=== PATIENT | male | born 1935 | race Caucasian/White ===

== ENCOUNTER 2017-03-03 19:21 | Inpatient (IN) | payer OTHER, MEDICARE ==
[2017-03-03] VITALS (7 sets, daily range): BP systolic 137–159; BP diastolic 80–92; PULSE 84–96; RESP 20; TEMP 98.2–98.6; O2SAT 93–98
[~2017-03-03] VITALS: Ht 182.9 cm; Wt 67.6 kg
[2017-03-03] MEDS: SODIUM CHLOR 0.9% 1000 ML INJ 1,000 ML IV SCH
--- NOTE | 2017-03-03 19:36 | PD ---
HPI Chief Complaint: Altered Mental Status Time Seen by Provider: 19:29 Travel History International Travel<30 days: No Contact w/Intl Traveler<30days: No Traveled to known affect area: No History of Present Illness HPI lives at home and per ems report from family is normally ambulatory and self reliant gentleman, pt is unable to answer questions well, per found down, and unable to stand on his own, last time seen normal was 9am, unknown when this happened PFSH Past Medical History ?: Unknown Social History Tobacco Use: No Allergies-Medications (Allergen,Severity, Reaction): Coded Allergies: UNOBTAINABLE (Unverified , 03/03/17) Review of Systems ROS Limitations: Altered Mental Status, Speech Impaired Except as stated in HPI: all other systems reviewed are Neg Physical Exam Exam Limitations: Clinical Condition, Poor Historian Narrative GENERAL: SKIN: Warm and dry. HEAD: Atraumatic. Normocephalic. EYES: Pupils equal and round. No scleral icterus. No injection or drainage. ENT: No nasal bleeding or discharge. Mucous membranes pink and moist. NECK: Trachea midline. No JVD. CARDIOVASCULAR: Regular rate and rhythm. RESPIRATORY: No accessory muscle use. Clear to auscultation. Breath sounds equal bilaterally. GASTROINTESTINAL: Abdomen soft, non-tender, nondistended. Hepatic and splenic margins not palpable. MUSCULOSKELETAL: Extremities without clubbing, cyanosis, or edema. No obvious deformities. NEUROLOGICAL: Awake FOLLOWS COMMANDS WELL, LEFT UE/LE 5/5, HOWEVER RIGHT UE/LE 0 /5, HAS DIFFICULTY SPEAKING PSYCHIATRIC: Appropriate mood and affect; insight and judgment normal. Data Data Last Documented VS Vital Signs Date Time Temp Pulse Resp B/P Pulse Ox O2 Delivery O2 Flow Rate FiO2 03/03/17 21:10 93 20 137/86 97 Nasal Cannula 1 03/03/17 19:24 98.2 Orders Electrocardiogram (03/03/17 19:29) Ammonia (03/03/17 19:29) Complete Blood Count With Diff (03/03/17 19:29) Comprehensive Metabolic Panel (03/03/17 19:29) Prothrombin Time / Inr (Pt) (03/03/17 19:29) Act Partial Throm Time (Ptt) (03/03/17 19:29) Troponin I (03/03/17 19:29) Thyroid Stimulating Hormone (03/03/17 19:29) Urinalysis - C+S If Indicated (03/03/17 19:29) Lactic Acid Sepsis Protocol (03/03/17 19:29) Chest, Single Ap (03/03/17 19:29) Ct Brain W/O Iv Contrast(Rout) (03/03/17 19:29) Blood Glucose (03/03/17 19:29) Ecg Monitoring (03/03/17 19:29) Iv Access Insert/Monitor (03/03/17 19:29) Oximetry (03/03/17 19:29) Drug Screen, Random Urine (03/03/17 19:29) Alcohol (Ethanol) (03/03/17 19:29) Tylenol (Acetaminophen) (03/03/17 19:29) Salicylates (Aspirin) (03/03/17 19:29) Ceftriaxone Inj (Rocephin Inj) (03/03/17 20:45) Sodium Chlor 0.9% 1000 Ml Inj (Ns 1000 M (03/03/17 21:00) Cta Thor Abd Aorta W Iv C W3d (03/03/17 ) Iohexol 350 Inj (Omnipaque 350 Inj) (03/03/17 21:35) Urine Culture (03/03/17 21:00) Admit Order (Ed Use Only) (03/03/17 21:53) Labs Laboratory Tests Test 03/03/17 03/03/17 03/03/17 03/03/17 19:40 19:56 21:00 21:29 White Blood Count 22.4 TH/MM3 Red Blood Count 4.66 MIL/MM3 Hemoglobin 14.9 GM/DL Hematocrit 43.9 % Mean Corpuscular Volume 94.2 FL Mean Corpuscular Hemoglobin 31.9 PG Mean Corpuscular Hemoglobin 33.9 % Concent Red Cell Distribution Width 13.1 % Platelet Count 180 TH/MM3 Mean Platelet Volume 9.2 FL Neutrophils (%) (Auto) 91.0 % Lymphocytes (%) (Auto) 2.0 % Monocytes (%) (Auto) 6.9 % Eosinophils (%) (Auto) 0.0 % Basophils (%) (Auto) 0.1 % Neutrophils # (Auto) 20.4 TH/MM3 Lymphocytes # (Auto) 0.5 TH/MM3 Monocytes # (Auto) 1.5 TH/MM3 Eosinophils # (Auto) 0.0 TH/MM3 Basophils # (Auto) 0.0 TH/MM3 CBC Comment DIFF FINAL Differential Comment Prothrombin Time 10.7 SEC Prothromb Time International 1.0 RATIO Ratio Activated Partial 23.2 SEC Thromboplast Time Sodium Level 138 MEQ/L Potassium Level 3.7 MEQ/L Chloride Level 104 MEQ/L Carbon Dioxide Level 24.5 MEQ/L Anion Gap 10 MEQ/L Blood Urea Nitrogen 17 MG/DL Creatinine 1.39 MG/DL Estimat Glomerular Filtration 49 ML/MIN Rate Random Glucose 168 MG/DL Calcium Level 8.6 MG/DL Total Bilirubin 0.3 MG/DL Aspartate Amino Transf 39 U/L (AST/SGOT) Alanine Aminotransferase 22 U/L (ALT/SGPT) Alkaline Phosphatase 87 U/L Troponin I 2.96 NG/ML Total Protein 7.9 GM/DL Albumin 4.1 GM/DL Thyroid Stimulating Hormone 1.280 uIU/ML 3rd Gen Acetaminophen Level LESS THAN 2.0 MCG/ML Ethyl Alcohol Level LESS THAN 3 MG/DL Lactic Acid Level 5.1 mmol/L Ammonia 24 MCMOL/L Urine Color YELLOW Urine Turbidity HAZY Urine pH 5.0 Urine Specific [place] 1.021 Urine Protein 30 mg/dL Urine Glucose (UA) 300 mg/dL Urine Ketones TRACE mg/dL Urine Occult Blood MOD Urine Nitrite NEG Urine Bilirubin NEG Urine Urobilinogen LESS THAN 2.0 MG/DL Urine Leukocyte Esterase NEG Urine RBC 36 /hpf Urine WBC 5 /hpf Urine Squamous Epithelial <1 /hpf Cells Urine Amorphous Sediment RARE Urine Bacteria RARE /hpf Urine Mucus FEW /lpf Microscopic Urinalysis Comment CATH-CULTURE IND Urine Opiates Screen NEG Urine Barbiturates Screen NEG Urine Amphetamines Screen NEG Urine Benzodiazepines Screen NEG Urine Cocaine Screen NEG Urine Cannabinoids Screen NEG Salicylates Level LESS THAN 1.7 MG/DL [facility] Medical Decision Making Medical Screen Exam Complete: Yes Emergency Medical Condition: Yes Medical Record Reviewed: Yes Interpretation(s) NSR 93, NL INTERVALS, NONSPEC STT Differential Diagnosis CVA V HYPOGLYCEMIA V SEPSIS V UT V DISSECTION Narrative Course UNKNOWN HISTORY DUE TO CONDITION BUT ROOMMATE LAST SAW HIM NORMAL AT 9A SO CVA BUT OUTSIDE OF TPA WINDOW....PATIENT WAS GIVEN SINGLE DOSE OF IV ABX AND FLUIDS AFTER LEUKOCYTOSIS AND LACTIC ACIDOSIS DISCOVERED (OF NOTE NO ABDMINAL REBOUND/ GUARDING/RIGIDITY) NO OBVIOUS SOURCE CXR CLEAR, CT HEAD NO ICH. DUE TO ELEV TROPONIN AND NEURO PRESENTATION CT AORTA DONE TO RULE OUT DISSECTION WHICH WAS NEGATIVE, D/W DR STEWART FOR ADMISSION TO ICU Critical Care Narrative CRITICAL CARE NOTE: With evaluation of the patient, labs, EKG, receipt of radiologic studies, administration of medications, reevaluation the patient and discussion of the patient with the admitting physicians, the total critical care time was [60] minutes. Time to perform other separately billable procedures was not included in the critical care time. Sepsis Criteria Severe Sepsis (+one): Organ Dysfunction, Lactate >2 Criteria Outcome: Meets severe sepsis criteria Diagnosis Primary Impression: 1-ACUTE CVA 2-SUSPECTED SEVERE SEPSIS (UNKNOWN SOURCE) 3-ELEVATED TROPONIN Admitting Information Admitting Physician Requests: Admit Andre Salcido MD Mar 03, 2017 19:36
--- NOTE | 2017-03-03 19:52 | RADRPT ---
EXAM DATE/TIME: 03/03/2017 19:37 [facility] COMPARISON: No previous studies available for comparison. INDICATIONS : Altered mental status with right sided weakness today. RADIATION DOSE: 53.45 CTDIvol (mGy) MEDICAL HISTORY : Non-responsive. SURGICAL HISTORY : Non-responsive. ENCOUNTER: Initial ACUITY: 1 day PAIN SCALE: 0/10 LOCATION: cranial TECHNIQUE: Multiple contiguous axial images were obtained of the head. Using automated exposure control and adj ustment of the mA and/or kV according to patient size, radiation dose was kept as low as reasonably a chievable to obtain optimal diagnostic quality images. DICOM format image data is available electro nically for review and comparison. FINDINGS: CEREBRUM: The ventricles are normal for age. There is mild chronic small vessel ischemic change. No evidence of midline shift, mass lesion, hemorrhage or acute infarction. No extra-axial fluid collections are se en. POSTERIOR FOSSA: The cerebellum and brainstem are intact. The 4th ventricle is midline. The cerebellopontine angle i s unremarkable. EXTRACRANIAL: The visualized portion of the orbits is intact. SKULL: The calvaria is intact. No evidence of skull fracture. CONCLUSION: 1. Mild atrophy and patchy chronic small vessel ischemic change. 2. No acute hemorrhage or mass effect. Scott Thompson MD on March 03, 2017 at 19:49 Board Certified Radiologist. This report was verified electronically.
--- NOTE | 2017-03-03 19:59 | RADRPT ---
EXAM DATE/TIME: 03/03/2017 19:36 [facility] COMPARISON: No previous studies available for comparison. INDICATIONS : Syncope MEDICAL HISTORY : None. SURGICAL HISTORY : None. ENCOUNTER: Initial ACUITY: 1 day PAIN SCORE: Non-responsive. LOCATION: Bilateral chest FINDINGS: A single view of the chest demonstrates the lungs to be symmetrically aerated without evidence of mas s, infiltrate or effusion. The cardiomediastinal contours are unremarkable. Osseous structures are intact. The patient is status post median sternotomy. There are overlying electrocardiogram leads. CONCLUSION: No acute disease. Scott Thompson MD on March 03, 2017 at 19:56 Board Certified Radiologist. This report was verified electronically.
[2017-03-03 20:03] LABS: AUTOMATED NEUTROPHIL # 20.4 TH/MM3 (1.8-7.7); BASOPHIL % 0.1 % (0.0-2.0); HEMATOCRIT 43.9 % (39.0-51.0); HEMO FLAGS DIFF FINAL; LYMPHOCYTE # 0.5 TH/MM3 (1.0-4.8); MEAN CELL VOLUME 94.2 FL (80.0-100.0); MEAN CORPUSCULAR HEMOGLOBIN 31.9 PG (27.0-34.0); MEAN CORPUSCULAR HGB CONC 33.9 % (32.0-36.0); MONO % 6.9 % (0.0-8.0); PLATELET COUNT 180 TH/MM3 (150-450); RED BLOOD COUNT 4.66 MIL/MM3 (4.50-5.90); RED CELL DISTRIBUTION WIDTH 13.1 % (11.6-17.2); WHITE BLOOD COUNT 22.4 TH/MM3 (4.0-11.0)
[2017-03-03 20:08] LABS: APTT (PATIENT) 23.2 SEC (24.3-30.1); PROTHROMBIN TIME - PATIENT 10.7 SEC (9.8-11.6)
[2017-03-03 20:23] LABS: ANION GAP 10 MEQ/L (5-15); AST (GOT) 39 U/L (15-37); BICARBONATE 24.5 MEQ/L (21.0-32.0); BLOOD UREA NITROGEN 17 MG/DL (7-18); CHLORIDE 104 MEQ/L (98-107); GLOMERULAR FILTRATION RATE 49 ML/MIN (>89); POTASSIUM 3.7 MEQ/L (3.5-5.1); SODIUM (NA) 138 MEQ/L (136-145)
[2017-03-03 20:35] LABS: ALKALINE PHOSPHATASE 87 U/L (45-117); ALT (GPT) 22 U/L (12-78); TOTAL BILIRUBIN ADULT 0.3 MG/DL (0.2-1.0)
[2017-03-03] MEDS ORDERED: cefTRIAXone INJ 1,000 MG in SODIUM CHLORIDE 0.9% INJ 100 ML IV ONE (20:45)
[2017-03-03 20:46] LABS: ACETAMINOPHEN LESS THAN 2.0 MCG/ML (10.0-30.0)
[2017-03-03] MEDS ORDERED: SODIUM CHLOR 0.9% 1000 ML INJ 1,000 ML IV ONE (21:00)
[2017-03-03] MEDS ORDERED: IOHEXOL 350 MG/ML 10 ML VIAL (for RAD DIAG) IV ONE (21:35)
[2017-03-03 21:39] LABS: BACTERIA, URINE RARE /hpf; BLOOD, URINE MOD (NEG); GLUCOSE,URINE 300 mg/dL (NEG); KETONE, URINE TRACE mg/dL (NEG); MUCUS URINE FEW /lpf (OCC); NITRITE,URINE NEG (NEG); SQUAMOUS EPITHELIAL CELL URINE <1 /hpf (0-5); URINE COLOR YELLOW (YELLW/STRAW)
[2017-03-03 21:41] LABS: COMMENT (UR) CATH-CULTURE IND; CULTURE IF INDICATED CATH CULTURE IND
--- NOTE | 2017-03-03 21:50 | RADRPT ---
EXAM DATE/TIME: 03/03/2017 21:12 [facility] COMPARISON: No previous studies available for comparison. INDICATIONS : Chest pain. Evaluate for aortic dissection. IV CONTRAST: 93 cc Omnipaque 350 (iohexol) IV RADIATION DOSE: 7.27 CTDIvol (mGy) MEDICAL HISTORY : Cardiovascular disease. SURGICAL HISTORY : CABG ENCOUNTER: Initial ACUITY: 1 day PAIN SCALE: 0/10 LOCATION: Abdomen TECHNIQUE: Volumetric scanning was performed using a multi-row detector CT scanner. The data was post processed with a variety of visualization algorithms including full volume maximum intensity projection, multi -planar sliding thin slab reformation, curved planar reformation, and surface rendering techniques. Using automated exposure control and adjustment of the mA and/or kV according to patient size, radiat ion dose was kept as low as reasonably achievable to obtain optimal diagnostic quality images. DICOM format image data is available electronically for review and comparison. FINDINGS: LUNGS: There is no consolidation or pneumothorax. No concerning pulmonary nodule is visualized. No pleural fluid is present. MEDIASTINUM: No abnormally enlarged lymph nodes by CT criteria. No axillary or hilar abnormalities are identified. There are coronary artery calcifications. Patient status post median sternotomy. There are mild post surgical changes ABDOMEN: The liver and spleen are free of focal defects. The gallbladder and pancreas demonstrate no abnormali ty. The adrenal glands are normal. The kidneys demonstrate no evidence of solid renal mass or hydrone phrosis. No free fluid or abdominal masses are identified. No para-aortic adenopathy is seen. PELVIS: No evidence of free fluid or pelvic mass. No abnormally enlarged inguinal or retroperitoneal lymph no candy are present. The bladder is unremarkable. THORACIC AORTA: The thoracic aortic root is normal with normal branching of the great vessels. There is no evidence of aneurysm or dissection. ABDOMINAL AORTA: The aorta is normal in caliber without aneurysm or dissection. The renal arteries are patent bilater ally. The proximal celiac and superior mesenteric arteries are patent and normal in diameter. Mild atherosclerotic change is present with calcification. The aorta is mildly tortuous. There is mild di latation. PELVIC VESSELS: The internal iliac and external iliac vessels are patent without aneurysm or stenosis. CONCLUSION: 1. Atherosclerotic changes in the aorta with no aneurysm or dissection. 2. Coronary artery calcifications. 3. Status post median sternotomy for bypass grafting procedure. Scott Thompson MD on March 03, 2017 at 21:45 Board Certified Radiologist. This report was verified electronically.
[2017-03-03 22:07] LABS: LACTIC ACID GHOST NOT REPORTABLE
[2017-03-03] MEDS ORDERED: SODIUM CHLORIDE 0.9% FLUSH 10 ML FLUSH IV FLUSH PRN (22:15)
[2017-03-03] MEDS ORDERED: NALOXONE HCL 0.4 MG/ML AMP IV PRN (22:15)
[2017-03-03] MEDS ORDERED: SODIUM CHLORIDE 0.9% FLUSH 5 ML FLUSH IV FLUSH PRN (22:15)
[2017-03-03] MEDS ORDERED: GLUCAGON 1 MG/ML VIAL OTHER PRN (22:15)
[2017-03-03] MEDS ORDERED: DEXTROSE 50% IN WATER 50 ML VIAL(D50) IV PUSH PRN (22:15)
--- NOTE | 2017-03-03 22:23 | HHI.HP ---
[facility] Unknown Admission Diagnosis 1-CVA 2-ELEVATED TROPONIN 3-SUSPECTED SEPSIS (UNKNOWN SOURCE) Diagnoses: Chief Complaint: Found down unresponive for undetermined amount of time Travel History International Travel<30 Days: No Contact w/Intl Traveler <30 Da: No Traveled to Known Affected Are: No History of Present Illness Written by Rosalind Graham, acting as scribe for Dr. James on 03/03/17 at 22:43. Found by roommate - he was down on the ground for an undetermined amount of time. Roommate left at 9 a.m. for work and he was fine and at 6:30 p.m. she returned to find him down. Bowel and bladder incontinence had reportedly occurred. He had right hemiparesis upon arrival to ED per ED RN. Patient nods head when asked if he fell at home Denies chest pain/abdominal pain Having difficulty finding words/speech is dysarthric Bite on his tongue noted during exam Per bedside ER nurse, she spoke with the patient's son and his roommate and neither were very familiar with his medical history. Further history will need to be taken as patient's condition continues to improve. . Review of Systems ROS Limitations: Clinical Condition Except as stated in HPI: all other systems reviewed are Neg Past Family Social History Past Medical History AL Hyperlipidemia CAD s/p CABG x 4 . Past Surgical History CABG x 4 1998 . Reported Medications unable to obtain . Allergies: Coded Allergies: UNOBTAINABLE (Unverified , 03/03/17) Active Ordered Medications Current Medications Ceftriaxone Sodium 1000 mg/ Sodium Chloride 100 ml @ 200 mls/hr ONCE ONCE IV Last administered on 03/03/17 21:44; Start 03/03/17 at 20:45; Stop 03/03/17 at 21:14; Status DC Sodium Chloride (NS 1000 ml Inj) 1,000 ml @ 999 mls/hr BOLUS ONCE IV Last administered on 03/03/17 20:55; Start 03/03/17 at 21:00; Stop 03/03/17 at 22:00 ; Status DC Iohexol 93 ml 93 ml STK-MED ONCE IV Last administered on 03/03/17t 21:35; Start 03/03/17 at 21:35; Stop 03/03/17 at 21:36; Status DC Sodium Chloride (NS 1000 ml Inj) 1,000 ml @ 100 mls/hr Q10H IV ; Start at 22:06 Sodium Chloride (NS Flush) 2 ml UNSCH PRN IV FLUSH FLUSH AFTER USING IV ACCESS ; Start 03/03/17 at 22:15 Sodium Chloride (NS Flush) 2 ml BID IV FLUSH ; Start 03/04/17 at 09:00 Naloxone HCl (Narcan Inj) 0.4 mg UNSCH PRN IV SEE LABEL COMMENTS; Start at 22:15 IV Flush (NS Flush) 2 ml BID IV FLUSH ; Start 03/04/17 at 09:00; Status UNV IV Flush (NS Flush) 2 ml UNSCH PRN IV FLUSH FLUSH AFTER USING IV ACCESS; Start 03/03/17 at 22:15; Status UNV Dextrose (D50w (Vial) Inj) 50 ml UNSCH PRN IV PUSH HYPOGLYCEMIA-SEE COMMENTS; Start 03/03/17 at 22:15 Glucagon (Glucagon Inj) 1 mg UNSCH PRN OTHER HYPOGLYCEMIA-SEE COMMENTS; Start 03/03/17 at 22:15 . Family History unable to obtain due to aphasia: expressive . Social History Tobacco: denies Alcohol: occasional . Physical Exam Vital Signs Vital Signs Date Time Temp Pulse Resp B/P Pulse Ox O2 Delivery O2 Flow Rate FiO2 03/03/17 22:13 96 143/92 98 Nasal Cannula 1 03/03/17 21:10 93 20 137/86 97 Nasal Cannula 1 03/03/17 20:26 97 Nasal Cannula 2 03/03/17 20:13 91 154/80 96 Nasal Cannula 2 03/03/17 19:31 146/86 03/03/17 19:31 89 138/90 94 Nasal Cannula 2 03/03/17 19:24 98.2 92 20 156/90 93 Physical Exam GENERAL: This is a well-nourished, well-developed patient, in no apparent distress. SKIN: No rashes, ecchymoses or lesions. Cool and dry. Right elbow, ankle, and knuckle abrasions HEAD: Atraumatic. Normocephalic. EYES: No scleral icterus. No injection or drainage. ENT: Nose without bleeding, purulent drainage. NECK: Trachea midline. No JVD or lymphadenopathy. CARDIOVASCULAR: Regular rate and rhythm without murmurs, gallops, or rubs. RESPIRATORY: Clear to auscultation. Breath sounds equal bilaterally. No wheezes , rales, or rhonchi. GASTROINTESTINAL: Abdomen soft, non-tender, nondistended. No guarding. MUSCULOSKELETAL: Extremities without clubbing, cyanosis, or edema. No calf tenderness. NEUROLOGICAL: Awake and alert. Right facial droop, tongue bite noted, no tongue deviation. 2/3 out of 5 strength in right upper extremity, left UE 5/5 bilateral LE 5/5; Expressive aphasia. . Laboratory Laboratory Tests Test 03/03/17 03/03/17 03/03/17 19:40 19:56 21:00 White Blood Count 22.4 Red Blood Count 4.66 Hemoglobin 14.9 Hematocrit 43.9 Mean Corpuscular Volume 94.2 Mean Corpuscular Hemoglobin 31.9 Mean Corpuscular Hemoglobin 33.9 Concent Red Cell Distribution Width 13.1 Platelet Count 180 Mean Platelet Volume 9.2 Neutrophils (%) (Auto) 91.0 Lymphocytes (%) (Auto) 2.0 Monocytes (%) (Auto) 6.9 Eosinophils (%) (Auto) 0.0 Basophils (%) (Auto) 0.1 Neutrophils # (Auto) 20.4 Lymphocytes # (Auto) 0.5 Monocytes # (Auto) 1.5 Eosinophils # (Auto) 0.0 Basophils # (Auto) 0.0 CBC Comment DIFF FINAL Differential Comment Prothrombin Time 10.7 Prothromb Time International 1.0 Ratio Activated Partial 23.2 Thromboplast Time Sodium Level 138 Potassium Level 3.7 Chloride Level 104 Carbon Dioxide Level 24.5 Anion Gap 10 Blood Urea Nitrogen 17 Creatinine 1.39 Estimat Glomerular Filtration 49 Rate Random Glucose 168 Calcium Level 8.6 Total Bilirubin 0.3 Aspartate Amino Transf 39 (AST/SGOT) Alanine Aminotransferase 22 (ALT/SGPT) Alkaline Phosphatase 87 Troponin I 2.96 Total Protein 7.9 Albumin 4.1 Thyroid Stimulating Hormone 1.280 3rd Gen Acetaminophen Level LESS THAN 2.0 Ethyl Alcohol Level LESS THAN 3 Lactic Acid Level 5.1 Ammonia 24 Urine Color YELLOW Urine Turbidity HAZY Urine pH 5.0 Urine Specific [place] 1.021 Urine Protein 30 Urine Glucose (UA) 300 Urine Ketones TRACE Urine Occult Blood MOD Urine Nitrite NEG Urine Bilirubin NEG Urine Urobilinogen LESS THAN 2.0 Urine Leukocyte Esterase NEG Urine RBC 36 Urine WBC 5 Urine Squamous Epithelial <1 Cells Urine Amorphous Sediment RARE Urine Bacteria RARE Urine Mucus FEW Microscopic Urinalysis Comment CATH-CULTURE IND Date/Time Procedure Status Source Growth 03/03/17 21:00 Urine Culture Received Urine Catheterized Urine Pending Result Diagram: 03/03/17193903/03/171939 Imaging Last Impressions Head CT 03/03/171928 Signed Impressions: Service Date/Time: , March 03, 2017 19:37 - CONCLUSION: 1. Mild atrophy and patchy chronic small vessel ischemic change. 2. No acute hemorrhage or mass effect. Scott Thompson MD Chest X-Ray 03/03/171928 Signed Impressions: Service Date/Time: , March 03, 2017 19:36 - CONCLUSION: No acute disease. Scott Thompson MD Aorta CTA 03/03/17 0000 Signed Impressions: Service Date/Time: , March 03, 2017 21:12 - CONCLUSION: 1. Atherosclerotic changes in the aorta with no aneurysm or dissection. 2. Coronary artery calcifications. 3. Status post median sternotomy for bypass grafting procedure. Scott Thompson MD . Assessment and Plan Assessment and Plan Mr. Lew flores was found down at home by his roommate. It is uncertain how long he'd been down but he had right hemiparesis per COUNTER CONTROL OPERATOR. He is admitted for CVA management. CVA - right hemiparesis and aphasia - toxicology screen negative - Consult neurology - Head CT was negative for acute hemorrhage or mass effect. Mild atrophy and patchy chronic small vessel ischemic changes noted. - Brain MRI could not be performed as MRI screening could not be completed reliably to ensure patient safety during testing - Consult rehabilitation medicine/physiatry - 2-D Echocardiogram to assess heart structure and heart function - Nothing by mouth - Nursing bedside swallow assessment - PT and ST Possible seizure - Check EEG to evaluate for seizure activity NSTEMI - Consult Cardiology - Initial troponin I was 2.96 - We will trend serial cardiac enzymes and EKGs - Heparin drip - Continuous cardiac telemetry to monitor for arrhythmia UTI - u/a with findings c/w UTI - Ceftriaxone 1 gm IV q12h - Await urine culture results and follow results and adjust treatment as indicated - WBC 22.4 with neutrophilia; Lactic acid 5.1 on presentation and 4.8 on recheck - suspect this is more likely related to metabolic derangement than sepsis Acute renal insufficiency - BUN 17, creatinine 1.39, estimated GFR 49 - Gentle IV fluid hydration with normal saline at 75 cc per hour - Repeat BMP in a.m. and follow trends in renal indices - Avoid nephrotoxins DVT prophylaxis - Heparin drip Discussed Condition With ER physician, RN, and patient . Physician Certification 2 Midnight Certification Type: Admission for Inpatient Services Order for Inpatient Services The services are ordered in accordance with Medicare regulations or non- Medicare payer requirements, as applicable. In the case of services not specified as inpatient-only, they are appropriately provided as inpatient services in accordance with the 2-midnight benchmark. Estimated LOS (days): 4 days is the estimated time the patient will need to remain in the hospital, assuming treatment plan goals are met and no additional complications. Post-Hospital Plan: Not yet determined Rosalind Graham Mar 03, 2017 22:23
[2017-03-03 22:40] LABS: AMPHETAMINE, URINE NEG (NEG); BARBITURATES, URINE NEG (NEG); COCAINE, URINE NEG (NEG)
[2017-03-03] MEDS ORDERED: ASPIRIN 300 MG SUPP RECTAL ONE (22:45)
--- NOTE | 2017-03-03 23:32 | RADRPT ---
EXAM DATE/TIME: 03/03/2017 22:48 [facility] COMPARISON: No previous studies available for comparison. INDICATIONS : Cerebrovascular accident. MEDICAL HISTORY : Hypercholesterolemia. Myocardial infarction. SURGICAL HISTORY : CABG. ENCOUNTER: Initial ACUITY: 1 day PAIN SCORE: 0/10 LOCATION: Bilateral neck PEAK SYSTOLIC VELOCITIES (cm/sec): ICA/CCA RATIO: Right: 1.2 Left: 1.2 ICA: Right: 81 Left: 83 CCA: Right: 68 Left: 72 ECA: Right: 187 Left: 86 VERTEBRAL: Right: 42 antegrade Left: 42 antegrade Elevated flow velocities and ICA/CCA ratios have been found to correlate with increased degrees of vessel stenosis, calculated as percentage of diameter relative to a normal segment of distal ICA/CCA FINDINGS: Antegrade flow is seen in both vertebral arteries. There is mild atherosclerotic plaquing at the orig in of both ICAs without any significant stenosis. CONCLUSION: No evidence for hemodynamically significant stenosis. Rossana Pike MD on March 03, 2017 at 23:30 Board Certified Radiologist. This report was verified electronically.
[2017-03-04] VITALS (14 sets, daily range): BP systolic 119–155; BP diastolic 70–83; PULSE 77–98; RESP 16–22; TEMP 98.8–99.7; O2SAT 92–98
[2017-03-04] MEDS: HEPARIN-D5W INJ 250 ML IV SCH (02:05)
--- NOTE | 2017-03-04 05:02 | EKG ---
Date Performed: 03/03/2017 Time Performed: 19:26:58 PTAGE: 81 years EKG: Sinus rhythm NORMAL ECG NO PREVIOUS TRACING DOCTOR: Sylvester Urias Interpretating Date/Time 03/04/2017 05:00:36
[2017-03-04 05:06] LABS: CKMB 18.3 NG/ML (0.5-3.6)
[2017-03-04 07:12] LABS: AUTOMATED NEUTROPHIL # 16.4 TH/MM3 (1.8-7.7); BASOPHIL % 0.1 % (0.0-2.0); HEMATOCRIT 39.2 % (39.0-51.0); HEMO FLAGS DIFF FINAL; LYMPH % 3.1 % (9.0-44.0); LYMPHOCYTE # 0.6 TH/MM3 (1.0-4.8); MEAN CELL VOLUME 92.8 FL (80.0-100.0); MEAN CORPUSCULAR HEMOGLOBIN 31.8 PG (27.0-34.0); MEAN CORPUSCULAR HGB CONC 34.3 % (32.0-36.0); MONO % 5.7 % (0.0-8.0); NEUT % 91.1 % (16.0-70.0); PLATELET COUNT 158 TH/MM3 (150-450); RED BLOOD COUNT 4.23 MIL/MM3 (4.50-5.90); RED CELL DISTRIBUTION WIDTH 13.1 % (11.6-17.2)
[2017-03-04 07:25] LABS: ANION GAP 10 MEQ/L (5-15); BICARBONATE 25.7 MEQ/L (21.0-32.0); BLOOD UREA NITROGEN 12 MG/DL (7-18); CHLORIDE 104 MEQ/L (98-107); GLOMERULAR FILTRATION RATE 77 ML/MIN (>89); POTASSIUM 3.8 MEQ/L (3.5-5.1); SODIUM (NA) 140 MEQ/L (136-145)
[2017-03-04 07:45] LABS: CREATINE KINASE 2679 U/L (39-308); HDL CHOLESTEROL 53.8 MG/DL (40.0-60.0); LDL CHOLESTEROL 145 MG/DL (0-99)
--- NOTE | 2017-03-04 08:08 | MB ---
cc: NADINE FOUNTAIN M.D. DATE OF CONSULTATION: 03/04/2017 REASON FOR CONSULTATION Evaluation of increased troponin. HISTORY OF PRESENT ILLNESS Az Hackett is a 81-year-old man known to my practice. The patient has a history of known coronary artery disease with previous bypass surgery and previous stenting. He apparently was found by his roommate on the ground for an undetermined amount of time and had incontinence and initially right hemiparesis. The patient was dysarthric upon admission. In talking to the nurses taking care of him overnight he is gradually coming around. When I went into the room he is obviously alert. He is attentive to my presence, but is not able to answer questions well. I asked him if he was having any chest pain and he did nod his head "no." I was not able to get much more detailed responses from him than that. The patient has known coronary artery disease. He had bypass surgery in the year 1999. He had an acute right coronary artery STEMI on October 05, 2011. At that time his LAD was totally occluded in its midsegment with a patent left internal mammary graft. The left circumflex artery had 95% ostial disease but was a patent vein graft to the obtuse marginal branch. The right coronary artery was occluded but was stented with a 3.0 x 23 mm Promus stent. His ejection fraction was mildly impaired but recovered on a subsequent echo. He was stable when he was last seen by Dr. Sears on September 09, 2016. PAST MEDICAL HISTORY 1. Benign prostatic hypertrophy. 2. Coronary artery disease. 3. Stage II chronic kidney disease. 4. Dyslipidemia. 5. Esophageal ulcer. PAST SURGICAL HISTORY Cardiac procedures. MEDICATIONS When last seen in the office was notable for multiple supplements and vitamins, but no aspirin, no statin, no cardiac medications. ALLERGIES The patient has no allergies. FAMILY HISTORY Positive for heart disease. SOCIAL HISTORY The patient was smoking cigars sometimes when he was seen in the office in September and a having a glass of wine every day per that history. I am not able to verify current history beyond what was recorded in September. PHYSICAL EXAMINATION GENERAL: A well-developed, well-nourished white male who is awake. VITAL SIGNS: Blood pressures have fluctuated from 137/86 and at 9:10 p.m. to 159/85 at 11:35 p.m. He is in sinus rhythm on telemetry. HEENT: Exam is unremarkable. NECK: Negative for JVD. CHEST: Clear anteriorly. CARDIAC: Normal S1, S2, regular rate and rhythm. No murmurs, no gallops. ABDOMEN: Soft. EXTREMITIES: No clubbing, cyanosis or edema. Pulses are intact. NEUROLOGIC: He is able to squeeze my fingers well with both hands. LABORATORY His white count is markedly elevated, initially 22,000, repeat 18,000. Hematocrit and platelet count are both normal. Creatinine was 1.39 last night; is pending this morning. Lactic acid was elevated. Troponin is elevated at 2.89. CPK is 2011 with a 0.9% MB fraction. Tox screen is negative. IMAGING He has had a carotid artery Doppler, aortic CTA, head CT and chest x-ray. He has atherosclerotic changes on his CT but no carotid stenosis, no pulmonary infiltrates. No brain lesions seen by CT. EKG His EKG shows sinus rhythm. There are no ischemic changes. There is trivial Q-wave in lead III, but not in II and AVF. IMPRESSION This is a 81-year-old man with known coronary artery disease who comes in after having had a clear-cut neurological event suggestive of a stroke. It is difficult getting history from the patient. He has known atherosclerotic disease. Looking at past medications the patient has not been on typical anti-atherosclerotic measures which appears to be due to compliance issues. He is now on IV Heparin and received one aspirin rectally last night. The elevation of the troponin level indicates the possibility of a coronary ischemic event but cannot ascertain this with certainty. There is no chest pain that can be elicited and there are no ischemic changes on his EKG; however, I would like to add a baby aspirin and a low-dose beta gerardo. Neuro will obviously be following. I do not think he is a candidate for an invasive cardiac evaluation at present since he is hemodynamically stable and not having chest pain and has obviously had a severe neurological event. Further therapy to be determined. MD ANNA Alvarado/CORINE /7:20 AM /7:44 AM
--- NOTE | 2017-03-04 08:25 | EKG ---
Date Performed: 03/04/2017 Time Performed: 07:33:50 PTAGE: 81 years EKG: Sinus rhythm POSSIBLE LEFT ATRIAL ENLARGEMENT Nonspecific T wave changes NO SIGNIFICANT CHANGE FROM PRIOR ELECTRO CARDIOGRAM. PREVIOUS TRACING : 03/03/2017 19.26 DOCTOR: Sylvester Urias Interpretating Date/Time 03/04/2017 08:24:26
[2017-03-04] MEDS ORDERED: cefTRIAXone INJ 2,000 MG in SODIUM CHLORIDE 0.9% INJ 100 ML IV SCH (09:00)
[2017-03-04] MEDS ORDERED: SODIUM CHLORIDE 0.9% FLUSH 5 ML FLUSH IV FLUSH SCH (09:00)
--- NOTE | 2017-03-04 09:35 | HHI.PR ---
Subjective Remarks Follow up CVA, elevated troponin. Patient is confused. He has dysphasia and is unable to provide much information. He denies pain at this time. Objective Vitals Vital Signs Date Time Temp Pulse Resp B/P Pulse Ox O2 Delivery O2 Flow Rate FiO2 03/04/17 09:01 92 03/04/17 06:00 98 03/04/17 04:00 98 03/04/17 04:00 98.8 98 18 155/73 98 03/04/17 02:00 88 03/04/17 00:00 84 03/03/17 23:35 98.6 84 20 159/85 97 03/03/17 22:13 96 143/92 98 Nasal Cannula 1 03/03/17 21:10 93 20 137/86 97 Nasal Cannula 1 03/03/17 20:26 97 Nasal Cannula 2 03/03/17 20:26 97 Nasal Cannula 2.00 03/03/17 20:13 91 154/80 96 Nasal Cannula 2 03/03/17 19:31 146/86 03/03/17 19:31 89 138/90 94 Nasal Cannula 2 03/03/17 19:24 98.2 92 20 156/90 93 I/O 03/03/17 03/03/17 03/03/17 03/04/17 03/04/17 03/04/17 07:00 15:00 23:00 07:00 15:00 23:00 Intake Total 556 ml Output Total 200 ml Balance 356 ml Intake IV Total 556 ml Output Urine Total 200 ml # Bowel Movements 2 Result Diagram: 03/04/17 0609 03/04/17 0609 Imaging Last Impressions Head CT 03/03/171928 Signed Impressions: Service Date/Time: February 19:37 - CONCLUSION: 1. Mild atrophy and patchy chronic small vessel ischemic change. 2. No acute hemorrhage or mass effect. Scott Thompson MD Chest X-Ray 03/03/171928 Signed Impressions: Service Date/Time: February 19:36 - CONCLUSION: No acute disease. Scott Thompson MD Carotid Artery Ultrasound 03/03/17 0000 Signed Impressions: Service Date/Time: February 22:48 - CONCLUSION: No evidence for hemodynamically significant stenosis. Rossana Pike MD Aorta CTA 03/03/17 0000 Signed Impressions: Service Date/Time: February 21:12 - CONCLUSION: 1. Atherosclerotic changes in the aorta with no aneurysm or dissection. 2. Coronary artery calcifications. 3. Status post median sternotomy for bypass grafting procedure. Scott Thompson MD Objective Remarks General: Elderly male in no acute distress. Heart: Regular rate and rhythm. No murmur. Lungs: Clear to auscultation bilaterally. No wheezes, rales, or rhonchi. Breathing is nonlabored. Abdomen: Soft, nontender, nondistended. Extremities: No lower extremity edema. Psych: Alert, dysphasic, confused. Procedures None Urinary Catheter: No Vascular Central Line Catheter: No A/P Problem List: (1) CVA (cerebral vascular accident) ICD Code: I63.9 Status: Acute (2) Encephalopathy ICD Code: G93.40 Status: Acute (3) Elevated troponin I level ICD Code: R74.8 Status: Acute (4) UTI (urinary tract infection) ICD Code: N39.0 Status: Acute (5) Acute kidney injury ICD Code: N17.9 Status: Acute (6) Hyperlipidemia ICD Code: E78.5 Status: Acute (7) Coronary artery disease ICD Code: I25.10 Status: Acute Assessment and Plan 1. CVA: Patient has right hemiparesis and dysphasia. Appreciate neurology recommendations. EEG pending. MRI brain ordered. PT/OT/ST. 2. Elevated troponin: Possible non-ST elevation NC. Appreciate cardiology recommendations. Not a candidate for cardiac catheterization at this time. On heparin drip. 3. UTI: Continue Rocephin. Urine culture pending. 4. Lactic acidosis: Monitor serum lactic acid level. 5. Sepsis: Patient has leukocytosis, lactic acidosis. Source of infection appears to be UTI. 6. Acute kidney injury: Continue IV fluids. Monitor labs. 7. DVT prophylaxis: ( Jignesh Gonzalez MD Mar 04, 2017 09:35
[2017-03-04] MEDS: cefTRIAXone INJ 1,000 MG in SODIUM CHLORIDE 0.9% INJ 100 ML IV SCH ×2 (10:11→23:21)
[2017-03-04] MEDS: SODIUM CHLORIDE 0.9% FLUSH 10 ML FLUSH IV FLUSH SCH ×2 (10:11→23:22)
[2017-03-04] MEDS: ONDANSETRON HCL 4 MG/2 ML VIAL IV PUSH PRN ×2 (10:12→15:35)
[2017-03-04] MEDS: ASPIRIN 81 MG CHEW TAB PO SCH (11:10)
[2017-03-04] MEDS: METOPROLOL TARTRATE 25 MG TAB PO SCH ×2 (11:10→23:22)
--- NOTE | 2017-03-04 11:49 | MG ---
cc: JENN OBREGON M.D. Lab No: Date: 03/04/2017 Age: 81 Sex: M Race: An EEG was obtained on this 81-year-old patient with history of decreased responsiveness. This EEG shows some bilateral slowing. There is mild symmetry as well. The EEG shows sharp discharges on the left more than right but there are a slower rhythms more pronounced on the right than left. This may be a more significant abnormality on the left because of the attenuation. On the other hand there are some rhythmic theta activity on the right frontal central head region intermittently. There is intermittent movement artifact. Hyperventilation was not performed. Photic stimulation was unremarkable. INTERPRETATION Abnormal EEG. This is intriguing but there is more sharp discharges with an epileptiform appearance on the left frontal head region and on the other hand there is some rhythmic frontal central activity on the right that is also suggestive of being an epileptiform and even possibly focal seizure. Clinical and imaging correlation necessary. Followup EEG's recommended if clinically warranted. MD SIMRAN Chaudhry/katt /10:44 AM /11:51 AM
[2017-03-04] MEDS ORDERED: PHENYTOIN INJ 1,000 MG in SODIUM CHLORIDE 0.9% INJ 100 ML IV ONE (12:00)
[2017-03-04] MEDS: SODIUM CHLOR 0.9% 1000 ML INJ 1,000 ML IV SCH (12:16)
--- NOTE | 2017-03-04 12:24 | MB ---
cc: JENN OBREGON M.D. DATE OF CONSULTATION: 03/04/2017 REASON FOR CONSULTATION: He is a 81-year-old seen in neurological consultation in regards to altered mental status. The patient was brought to the hospital yesterday with a history of being found by a roommate and, down on the ground. The patient apparently had incontinence. The roommate left 09:00 a.m. and return 06:30 p.m. and found the patient in this condition. There is a history of coronary artery disease and coronary artery bypass graft, MEDICATIONS: I am uncertain about previous medications. SOCIAL HISTORY: Has occasional alcohol. The patient is unable to provide history. PHYSICAL EXAMINATION: IN GENERAL: On exam the patient was awake, appears alert and seemed to be pleasant and smile and constantly answered "no" with a multiple requests at times he did follow simple commands. He seems to move all four extremities but he appears to have a little bit of left facial flattening and he bit his tongue on the right side. His reflexes were trace versus absent and plantar responses flexor. The CT brain is negative for acute process. I did review the CT. LABORATORY DATA White count yesterday 22.4 today 18.0. Chemistry sodium 140, potassium 3.8, BUN, creatinine normal. Glucose 120, Creatine phosphokinase; elevated to 2011 and a repeat Creatine phosphokinase 2679. Troponin is elevated. ASSESSMENT He is now globally aphasic and has evidence of right-sided tongue injury. There was incontinence and he was found on the ground. It appears that he had a seizure. The CT brain seems negative. I wonder if this is all seizure and postictal, because I would expect some findings on the CT scan in terms of an ischemic stroke. He is going for MRI brain and EEG. After these will probably start him on anticonvulsants. A carotid ultrasound was unremarkable. Evidently he is being followed by cardiology. Thank you for asking us to assist in his care. MD SIMRAN Chaudhry/katt /10:14 AM /11:57 AM
[2017-03-04 13:02] LABS: APTT (PATIENT) 41.5 SEC (24.3-30.1)
--- NOTE | 2017-03-04 14:09 | ECHRPT ---
Indication: CONCLUSIONS Normal left ventricular size. Wall thickness is normal. The left ventricular systolic function is normal with an estimated ejection fraction in the range of 55-60%. No obvious wall motion abnormalities. The left atrial size is mildly dilated. Mild mitral valve regurgitation. Aortic valve sclerosis is present. The tip of the noncoronary cusp is thickened and calcified - cannot exclude a vegetation if clinical ly suspected. The is mild aortic regurgitation. BP: 155 / 73 HR: 98 Rhythm: Sinus MEASUREMENTS (Male / Female) Normal Values Technical Quality:Fair 2D ECHO LV Diastolic Diameter PLAX 4.7 cm 4.2 - 5.9 / 3.9 - 5.3 cm LV Systolic Diameter PLAX 3.1 cm IVS Diastolic Thickness 0.8 cm 0.6 - 1.0 / 0.6 - 0.9 cm LVPW Diastolic Thickness 0.8 cm 0.6 - 1.0 / 0.6 - 0.9 cm LV Relative Wall Thickness 0.3 LVOT Diameter 2.1 cm Aortic Root Diameter 3.6 cm LA Systolic Diameter LX 3.1 cm 3.0 - 4.0 / 2.7 - 3.8 cm M-MODE AV Cusp Separation MM 2.2 cm DOPPLER AV Peak Velocity 136.0 cm/s AV Peak Gradient 7.4 mmHg AV Mean Gradient 5.0 mmHg AV Velocity Time Integral 26.4 cm AI Peak Velocity 271.0 cm/s AI Peak Gradient 29.4 mmHg AI Pressure Half Time 483.0 ms LVOT Peak Velocity 95.5 cm/s LVOT Peak Gradient 3.6 mmHg LVOT Velocity Time Integral 18.7 cm LVOT Cardiac Index 3247.7 cm/minm AV Area Cont Eq vti 2.5 cm AV Area Cont Eq pk 2.4 cm Mitral E Point Velocity 76.0 cm/s Mitral A Point Velocity 101.0 cm/s Mitral E to A Ratio 0.8 LV E' Lateral Velocity 11.1 cm/s Mitral E to LV E' Lateral Ratio 6.8 LV E' Septal Velocity 8.0 cm/s Mitral E to LV E' Septal Ratio 9.5 TR Peak Velocity 263.0 cm/s TR Peak Gradient 27.7 mmHg FINDINGS LEFT VENTRICLE Normal left ventricular size. Wall thickness is normal. The left ventricular systolic function is normal with an estimated ejection fraction in the range of 55-60%. No obvious wall motion abnormalities. Left ventricular diastolic function parameters are normal. RIGHT VENTRICLE Normal right ventricular size and systolic function. LEFT ATRIUM The left atrial size is mildly dilated. MITRAL VALVE Structurally normal mitral valve. Mild mitral valve regurgitation. AORTIC VALVE Aortic valve sclerosis is present. The tip of the noncoronary cusp is thickened and calcified - cannot exclude a vegetation if clinical ly suspected. The is mild aortic regurgitation. TRICUSPID VALVE Structurally normal tricuspid valve. PULMONARY VALVE Unremarkable. PERICARDIUM No pericardial effusion. Eben Rabago MD (Electronically Signed) Final Date:04 March 2017 14:07
--- NOTE | 2017-03-04 15:35 | RADRPT ---
EXAM DATE/TIME: 03/04/2017 13:32 [facility] COMPARISON: No previous studies available for comparison. INDICATIONS : Stroke. MEDICAL HISTORY : Hypertension. Hypercholesterolemia. Myocardial infarction. SURGICAL HISTORY : CABG Cardiac stent. ENCOUNTER: Subsequent ACUITY: 2 day PAIN SCORE: 3/10 LOCATION: cranial Please note a normal MRA of the brain does not entirely exclude the possibility of a small aneurysm, nor the possibility of distal intracranial vessel disease. TECHNIQUE: 3D time of flight MRA was performed. Source images, multiplanar STS MIP, and 3D volume MIP reconstru ctions were reviewed. FINDINGS: There is excellent visualization of the major intracranial arteries out to the second-order branch ve ssels. Anterior circulation: There is no evidence for aneurysm, vessel truncation or stenosis, and no evidence for vascular malfor mation. Posterior circulation: The vertebral arteries are asymmetric in size with a dominant left vertebral artery. There are appare nt at least moderate stenoses of the left QUILL STRIPPER origin and proximal left QUILL STRIPPER. Otherwise, no vessel trun cation, aneurysm, or vascular malformation. Visualized brain parenchyma demonstrate no evidence for gross mass, intra-or extra-axial fluid collec tions or hydrocephalus. Cerebellum and brainstem are grossly unremarkable. CONCLUSION: 1. Moderate focal stenosis of the left QUILL STRIPPER origin and proximal left QUILL STRIPPER. 2. Otherwise, unremarkable MRA examination. No evidence for aneurysm, vascular malformation, or large vessel occlusion. Brandon Gama MD on March 04, 2017 at 15:26 Board Certified Radiologist. This report was verified electronically.
[2017-03-04 17:36] LABS: HEMOGLOBIN A1a 1.2 %; HEMOGLOBIN A1b 1.8 %; HEMOGLOBIN Ao 84.6 %; HEMOGLOBIN LA1C 2.2 %; HEMOGLOBIN P3 4.2 %
[2017-03-04 18:14] LABS: APTT (PATIENT) 37.3 SEC (24.3-30.1)
[2017-03-04 22:12] LABS: APTT (PATIENT) 76.3 SEC (24.3-30.1)
[2017-03-04] MEDS: PHENYTOIN INJ 100 MG/2 ML VIAL IV SCH (23:20)
[2017-03-05] VITALS (14 sets, daily range): BP systolic 100–139; BP diastolic 44–64; PULSE 64–96; RESP 18–27; TEMP 98.4–99.2; O2SAT 92–96
[2017-03-05] MEDS: PHENYTOIN INJ 100 MG/2 ML VIAL IV SCH ×3 (04:59→22:16)
[2017-03-05] MEDS: cefTRIAXone INJ 1,000 MG in SODIUM CHLORIDE 0.9% INJ 100 ML IV SCH ×2 (08:10→22:17)
[2017-03-05 08:13] LABS: APTT (PATIENT) 36.9 SEC (24.3-30.1); AUTOMATED NEUTROPHIL # 13.4 TH/MM3 (1.8-7.7); BASOPHIL % 0.1 % (0.0-2.0); HEMATOCRIT 38.6 % (39.0-51.0); HEMO FLAGS DIFF FINAL; LYMPH % 4.8 % (9.0-44.0); LYMPHOCYTE # 0.7 TH/MM3 (1.0-4.8); MEAN CELL VOLUME 92.4 FL (80.0-100.0); MEAN CORPUSCULAR HEMOGLOBIN 31.6 PG (27.0-34.0); MEAN CORPUSCULAR HGB CONC 34.2 % (32.0-36.0); MONO % 7.5 % (0.0-8.0); NEUT % 87.6 % (16.0-70.0); PLATELET COUNT 145 TH/MM3 (150-450); RED BLOOD COUNT 4.18 MIL/MM3 (4.50-5.90); RED CELL DISTRIBUTION WIDTH 13.1 % (11.6-17.2); WHITE BLOOD COUNT 15.2 TH/MM3 (4.0-11.0)
[2017-03-05] MEDS: ASPIRIN 81 MG CHEW TAB PO SCH (08:13)
[2017-03-05] MEDS: METOPROLOL TARTRATE 25 MG TAB PO SCH ×2 (08:13→22:16)
[2017-03-05 08:29] LABS: BICARBONATE 31.3 MEQ/L (21.0-32.0); POTASSIUM 3.7 MEQ/L (3.5-5.1)
[2017-03-05] MEDS: SODIUM CHLORIDE 0.9% FLUSH 10 ML FLUSH IV FLUSH SCH ×2 (08:32→22:16)
--- NOTE | 2017-03-05 08:54 | HHI.PR ---
Subjective Remarks Follow-up CVA, elevated troponin. Patient remains aphasic. Does not indicate specific complaints at this time. Objective Vitals Vital Signs Date Time Temp Pulse Resp B/P Pulse Ox O2 Delivery O2 Flow Rate FiO2 03/05/17 08:06 92 21 03/05/17 04:00 98.7 70 20 121/60 96 03/05/17 00:00 99.2 79 27 136/44 93 03/05/17 00:00 96 03/04/17 22:14 93 21 03/04/17 22:00 87 03/04/17 20:00 99.7 87 22 137/70 96 03/04/17 20:00 87 03/04/17 18:00 81 03/04/17 16:00 82 03/04/17 16:00 99.7 82 22 119/70 94 03/04/17 14:00 77 03/04/17 12:00 99.0 90 16 143/83 96 03/04/17 12:00 90 03/04/17 10:00 78 03/04/17 09:01 92 I/O 03/04/17 03/04/17 03/04/17 03/05/17 03/05/17 03/05/17 07:00 15:00 23:00 07:00 15:00 23:00 Intake Total 556 ml 238 ml 292 ml 426 ml Output Total 200 ml 515 ml 50 ml Balance 356 ml -277 ml 242 ml 426 ml Intake Oral 50 ml IV Total 556 ml 188 ml 292 ml 426 ml Output Urine Total 200 ml 515 ml 50 ml # Voids 3 2 # Bowel Movements 2 Result Diagram: 03/05/17 0732 03/05/17 0732 Imaging Last Impressions Head Magnetic Resonance Angiography 03/04/17 0000 Signed Impressions: Service Date/Time: Saturday, March 04, 2017 13:32 - CONCLUSION: 1. Moderate focal stenosis of the left PSYCH RN origin and proximal left PSYCH RN. 2. Otherwise, unremarkable MRA examination. No evidence for aneurysm, vascular malformation, or large vessel occlusion. Brandon Gama MD Head CT 03/03/171928 Signed Impressions: Service Date/Time: February 19:37 - CONCLUSION: 1. Mild atrophy and patchy chronic small vessel ischemic change. 2. No acute hemorrhage or mass effect. Scott Thompson MD Chest X-Ray 03/03/17 192 Signed Impressions: Service Date/Time: February 19:36 - CONCLUSION: No acute disease. Scott Thompson MD Carotid Artery Ultrasound 03/03/17 0000 Signed Impressions: Service Date/Time: February 22:48 - CONCLUSION: No evidence for hemodynamically significant stenosis. Rossana Pike MD Aorta CTA 03/03/17 0000 Signed Impressions: Service Date/Time: February 21:12 - CONCLUSION: 1. Atherosclerotic changes in the aorta with no aneurysm or dissection. 2. Coronary artery calcifications. 3. Status post median sternotomy for bypass grafting procedure. Scott Thompson MD Objective Remarks General: Elderly male in no acute distress. Heart: Regular rate and rhythm. No murmur. Lungs: Clear to auscultation bilaterally. No wheezes, rales, or rhonchi. Breathing is nonlabored. Abdomen: Soft, nontender, nondistended. Extremities: No lower extremity edema. Psych: Alert, aphasic. Procedures None Urinary Catheter: No Vascular Central Line Catheter: No A/P Problem List: (1) CVA (cerebral vascular accident) ICD Code: I63.9 Status: Acute (2) Encephalopathy ICD Code: G93.40 Status: Acute (3) Elevated troponin I level ICD Code: R74.8 Status: Acute (4) UTI (urinary tract infection) ICD Code: N39.0 Status: Acute (5) Acute kidney injury ICD Code: N17.9 Status: Acute (6) Hyperlipidemia ICD Code: E78.5 Status: Acute (7) Coronary artery disease ICD Code: I25.10 Status: Acute Assessment and Plan 1. CVA: Patient has right hemiparesis and dysphasia. Appreciate neurology recommendations. EEG is abnormal. MRI brain ordered. PT/OT/ST. 2. Elevated troponin: Possible non-ST elevation LA. Appreciate cardiology recommendations. Not a candidate for cardiac catheterization at this time. On heparin drip. 3. UTI: Continue Rocephin. Urine culture is negative so far. 4. Lactic acidosis: Monitor serum lactic acid level. 5. Sepsis: Patient has leukocytosis, lactic acidosis. Source of infection appears to be UTI. WBCs are trending down. Lactic acidosis has resolved. 6. Acute kidney injury: Continue IV fluids. Monitor labs. 7. DVT prophylaxis: Heparin. 8. Rhabdomyolysis: CK is pending this morning. Continue IV fluids. 9. Questionable seizure: Abnormal EEG. Appreciate neurology recommendations. Continue Dilantin. Jignesh Gonzalez MD Mar 05, 2017 08:54
[2017-03-05 09:28] LABS: CKMB 14.8 NG/ML (0.5-3.6)
--- NOTE | 2017-03-05 10:33 | PD.CARD.PN ---
Subjective Subjective Remarks Does not voice any complaints but mental status is altered Objective Medications Current Medications Medications (Trade) Dose Ordered Sig/Daniel Route Start Time Stop Time Status Last Admin (NS Flush) 2 ml UNSCH PRN IV FLUSH 03/03/17 22:15 (NS Flush) 2 ml BID IV FLUSH 03/04/17 09:00 03/05/17 08:32 (Narcan Inj) 0.4 mg UNSCH PRN IV 03/03/17 22:15 (D50w (Vial) Inj) 50 ml UNSCH PRN IV PUSH 03/03/17 22:15 Glucagon 1 mg 1 mg UNSCH PRN OTHER 03/03/17 22:15 Heparin Sodium/ Dextrose 250 ml @ 0 mls/hr TITRATE IV 03/03/17 23:00 03/04/17 02:05 (Rocephin Inj/NS Inj) 100 ml @ 200 mls/hr Q12H IV 03/04/17 09:00 03/05/17 08:10 (Zofran Inj) 4 mg Q6H PRN IV PUSH 03/04/17 03:00 03/04/17 15:35 (Aspirin Chew) 81 mg DAILY PO 03/04/17 09:00 03/05/17 08:13 (Lopressor) 12.5 mg Q12HR PO 03/04/17 09:00 03/05/17 08:13 (Pill Splitter) 1 ea UNSCH PRN OTHER 03/04/17 07:30 Phenytoin Sodium 100 mg 100 mg Q8H IV 03/04/17 20:00 03/05/17 04:59 (NS + KCl 20 Meq Inj) 1,000 ml @ 100 mls/hr Q10H IV 03/05/17 09:00 Vital Signs / I&O Vital Signs Date Time Temp Pulse Resp B/P Pulse Ox O2 Delivery O2 Flow Rate FiO2 03/05/17 08:06 92 21 03/05/17 08:00 99.0 68 22 113/61 92 03/05/17 08:00 68 03/05/17 06:00 96 03/05/17 04:00 98.7 70 20 121/60 96 03/05/17 04:00 96 03/05/17 02:00 96 03/05/17 00:00 99.2 79 27 136/44 93 03/05/17 00:00 96 7/1/17 00:00 84 03/04/17 22:14 93 21 03/04/17 22:00 87 03/04/17 20:00 99.7 87 22 137/70 96 03/04/17 20:00 87 03/04/17 18:00 81 03/04/17 16:00 82 03/04/17 16:00 99.7 82 22 119/70 94 03/04/17 14:00 77 03/04/17 12:00 99.0 90 16 143/83 96 03/04/17 12:00 90 I/O 03/04/17 03/04/17 03/04/17 03/05/17 03/05/17 03/05/17 07:00 15:00 23:00 07:00 15:00 23:00 Intake Total 556 ml 238 ml 292 ml 426 ml Output Total 200 ml 515 ml 50 ml Balance 356 ml -277 ml 242 ml 426 ml Intake Oral 50 ml IV Total 556 ml 188 ml 292 ml 426 ml Output Urine Total 200 ml 515 ml 50 ml # Voids 3 2 # Bowel Movements 2 Physical Exam Alert Chest clear anteriorly CV S1S2 RRR Abd soft Ext: no CCE Laboratory Laboratory Tests Test 03/04/17 03/04/17 03/04/17 03/05/17 12:18 17:24 21:09 07:32 Activated Partial 41.5 SEC 37.3 SEC 76.3 SEC 36.9 SEC Thromboplast Time Lactic Acid Level 1.9 mmol/L White Blood Count 15.2 TH/MM3 Red Blood Count 4.18 MIL/MM3 Hemoglobin 13.2 GM/DL Hematocrit 38.6 % Mean Corpuscular Volume 92.4 FL Mean Corpuscular Hemoglobin 31.6 PG Mean Corpuscular Hemoglobin 34.2 % Concent Red Cell Distribution Width 13.1 % Platelet Count 145 TH/MM3 Mean Platelet Volume 9.1 FL Neutrophils (%) (Auto) 87.6 % Lymphocytes (%) (Auto) 4.8 % Monocytes (%) (Auto) 7.5 % Eosinophils (%) (Auto) 0.0 % Basophils (%) (Auto) 0.1 % Neutrophils # (Auto) 13.4 TH/MM3 Lymphocytes # (Auto) 0.7 TH/MM3 Monocytes # (Auto) 1.1 TH/MM3 Eosinophils # (Auto) 0.0 TH/MM3 Basophils # (Auto) 0.0 TH/MM3 CBC Comment DIFF FINAL Differential Comment Sodium Level 141 MEQ/L Potassium Level 3.7 MEQ/L Chloride Level 105 MEQ/L Carbon Dioxide Level 31.3 MEQ/L Anion Gap 5 MEQ/L Blood Urea Nitrogen 20 MG/DL Creatinine 0.94 MG/DL Estimat Glomerular Filtration 77 ML/MIN Rate Random Glucose 118 MG/DL Calcium Level 7.8 MG/DL Total Creatine Kinase 6589 U/L Creatine Kinase MB 14.8 NG/ML Creatine Kinase MB % 0.2 % Phenytoin (Dilantin) Level 17.0 MCG/ML Assessment and Plan Problem List: (1) Elevated troponin I level Assessment and Plan: curve flat. Poss NSTEMI (2) Altered mental state Assessment and Plan: Ongoing. MRI today (3) Coronary artery disease Assessment and Plan: Prior LAD ds with patent APARICIO, LCX ds with patent SVG, RCA ds with prior stent Assessment and Plan Conservative therapy for now due to no active ischemia and altered mental status. Eben Rabago MD Mar 05, 2017 10:32
--- NOTE | 2017-03-05 11:43 | RADRPT ---
EXAM DATE/TIME: 03/04/2017 13:32 [place] COMPARISON: CT BRAIN W/O CONTRAST, March 03, 2017, 19:37. MRA BRAIN W/O CONTRAST, March 04, 2017, 13:32. INDICATIONS : CVA. MEDICAL HISTORY : Hypertension. Hypercholesterolemia. Myocardial infarction. SURGICAL HISTORY : CABG Cardiac stents. ENCOUNTER: Subsequent ACUITY: 2 day PAIN SCORE: 3/10 LOCATION: cranial TECHNIQUE: Multiplanar, multisequence MRI of the brain was performed without contrast. FINDINGS: There is diffuse atrophy and patchy foci of increased flair signal no symptoms Periventricular white matter most characteristic of chronic microvascular ischemic disease. There is no hemorrhage area there is mild diffusion hyperintensity in the left mesial temporal region without corresponding decreased signal on the ADC map to suggest acute infarction. There is corresponding inc reased flair and T2 signal at this level without well-defined mass. CONCLUSION: 1. Atrophy and white matter disease. 2. 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 Given the unilateral appearance, the possibility of herpes encephalitis should be excluded. Singh Marcos MD on March 05, 2017 at 11:34 Board Certified Radiologist. This report was verified electronically.
[2017-03-05] MEDS: NS + KCL 20 MEQ INJ 1,000 ML IV SCH ×2 (12:25→17:26)
[2017-03-05 13:33] LABS: APTT (PATIENT) 36.4 SEC (24.3-30.1)
--- NOTE | 2017-03-05 16:13 | HHI.PR ---
Review/Management Daily Summary 03/05 he is starting to talk but not much and not making much sense, staff reported some agitation and had to be restrained i saw him about 2 hours ago and just reviewed the mri brain which shows left more than right mesial temp lobe signal change possible encephalitis, afebrile start empiric acyclovir iv, unable to do LP as he is on heparin will likely need lp later on and would send autoimmune encephalitis pannel repeat eeg dilantin as is , level 17 Subjective Subjective Comments No new neuro events reported No headache Active Medications Current Medications Medications (Trade) Dose Ordered Sig/Daniel Route Start Time Stop Time Status Last Admin (NS Flush) 2 ml UNSCH PRN IV FLUSH 03/03/17 22:15 (NS Flush) 2 ml BID IV FLUSH 03/04/17 09:00 03/05/17 08:32 (Narcan Inj) 0.4 mg UNSCH PRN IV 03/03/17 22:15 (D50w (Vial) Inj) 50 ml UNSCH PRN IV PUSH 03/03/17 22:15 Glucagon 1 mg 1 mg UNSCH PRN OTHER 03/03/17 22:15 Heparin Sodium/ Dextrose 250 ml @ 0 mls/hr TITRATE IV 03/03/17 23:00 03/04/17 02:05 (Rocephin Inj/NS Inj) 100 ml @ 200 mls/hr Q12H IV 03/04/17 09:00 03/05/17 08:10 (Zofran Inj) 4 mg Q6H PRN IV PUSH 03/04/17 03:00 03/04/17 15:35 (Aspirin Chew) 81 mg DAILY PO 03/04/17 09:00 03/05/17 08:13 (Lopressor) 12.5 mg Q12HR PO 03/04/17 09:00 03/05/17 08:13 (Pill Splitter) 1 ea UNSCH PRN OTHER 03/04/17 07:30 Phenytoin Sodium 100 mg 100 mg Q8H IV 03/04/17 20:00 03/05/17 12:26 (NS + KCl 20 Meq Inj) 1,000 ml @ 100 mls/hr Q10H IV 03/05/17 09:00 03/05/17 12:25 Allergies Allergies Coded Allergies UNOBTAINABLE (Unverified03/03/17) Exam I&O / VS 03/04/17 03/04/17 03/05/17 15:00 23:00 07:00 Intake Total 238 ml 292 ml 426 ml Output Total 515 ml 50 ml Balance -277 ml 242 ml 426 ml Intake Oral 50 ml IV Total 188 ml 292 ml 426 ml Output Urine Total 515 ml 50 ml # Voids 3 2 Vital Signs Date Time Temp Pulse Resp B/P Pulse Ox O2 Delivery O2 Flow Rate FiO2 03/05/17 14:00 78 03/05/17 12:00 98.9 66 18 100/58 95 03/05/17 12:00 66 03/05/17 10:00 64 03/05/17 08:06 92 21 03/05/17 08:00 99.0 68 22 113/61 92 03/05/17 08:00 68 03/05/17 06:00 96 03/05/17 04:00 98.7 70 20 121/60 96 03/05/17 04:00 96 03/05/17 02:00 96 03/05/17 00:00 99.2 79 27 136/44 93 03/05/17 00:00 96 03/05/17 00:00 84 03/04/17 22:14 93 21 03/04/17 22:00 87 03/04/17 20:00 99.7 87 22 137/70 96 03/04/17 20:00 87 03/04/17 18:00 81 03/04/17 16:00 82 03/04/17 16:00 99.7 82 22 119/70 94 Objective Radiology Results Last 48 hours Impressions Brain MRI 03/05/17 0000 Signed Impressions: Service Date/Time: Saturday, March 04, 2017 13:32 - CONCLUSION: 1. Atrophy and white matter disease. 2. 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 Given the unilateral appearance , the possibility of herpes encephalitis should be excluded. Singh Marcos MD Head Magnetic Resonance Angiography 03/04/17 0000 Signed Impressions: Service Date/Time: Saturday, March 04, 2017 13:32 - CONCLUSION: 1. Moderate focal stenosis of the left [employer] origin and proximal left [employer] RO[employer]. 2. Otherwise, unremarkable MRA examination. No evidence for aneurysm, vascular malformation, or large vessel occlusion. Brandon Bozorgmanesh, MD Head CT 03/03/171928 Signed Impressions: Service Date/Time: February 19:37 - CONCLUSION: 1. Mild atrophy and patchy chronic small vessel ischemic change. 2. No acute hemorrhage or mass effect. Scott Thompson MD Chest X-Ray 03/03/171928 Signed Impressions: Service Date/Time: February 19:36 - CONCLUSION: No acute disease. Scott Thompson MD Micro and Labs Laboratory Tests Test 03/04/17 03/04/17 03/05/17 03/05/17 17:24 21:09 07:32 13:06 Activated Partial 37.3 76.3 36.9 36.4 Thromboplast Time White Blood Count 15.2 Red Blood Count 4.18 Hemoglobin 13.2 Hematocrit 38.6 Mean Corpuscular Volume 92.4 Mean Corpuscular Hemoglobin 31.6 Mean Corpuscular Hemoglobin 34.2 Concent Red Cell Distribution Width 13.1 Platelet Count 145 Mean Platelet Volume 9.1 Neutrophils (%) (Auto) 87.6 Lymphocytes (%) (Auto) 4.8 Monocytes (%) (Auto) 7.5 Eosinophils (%) (Auto) 0.0 Basophils (%) (Auto) 0.1 Neutrophils # (Auto) 13.4 Lymphocytes # (Auto) 0.7 Monocytes # (Auto) 1.1 Eosinophils # (Auto) 0.0 Basophils # (Auto) 0.0 CBC Comment DIFF FINAL Differential Comment Sodium Level 141 Potassium Level 3.7 Chloride Level 105 Carbon Dioxide Level 31.3 Anion Gap 5 Blood Urea Nitrogen 20 Creatinine 0.94 Estimat Glomerular Filtration 77 Rate Random Glucose 118 Calcium Level 7.8 Total Creatine Kinase 6589 Creatine Kinase MB 14.8 Creatine Kinase MB % 0.2 Phenytoin (Dilantin) Level 17.0 Date/Time Procedure Status Source Growth 03/03/17 21:00 Urine Culture - Final Complete Urine Catheterized Urine NO GROWTH IN 48 HOURS. John Campos MD Mar 05, 2017 16:13
[2017-03-05] MEDS: SODIUM CHLOR 0.9% IV SCH (17:00)
[2017-03-05] MEDS: ACYCLOVIR IV SCH (17:00)
--- NOTE | 2017-03-05 17:14 | MG ---
cc: JENN CAMPOS M.D. Lab No: Date: 03/05/2017 Age: 81 Sex: M Race: REQUESTING: Dr. Campos. HISTORY: A repeat EEG was carried out on this 81-year-old patient. EEG yesterday showed left frontal sharp discharges with some rhythmic activity, possibly ictal. DESCRIPTION OF THE RECORDING: The current study continues to show the left hemisphere sharp discharges, which actually are more frequent than yesterday and extending towards the right hemisphere. There are low amplitude beta rhythms. There is theta activity. On the other hand, there is no obvious buildup of rhythmic activity to suggest ongoing seizures or ictal pattern. Photic stimulation was unremarkable. INTERPRETATION: Abnormal EEG because of left more than right hemisphere sharp discharges, more frequent than yesterday and these are of epileptiform appearance but on today's study there is no overt rhythmic or ictal activity. Followup EEG is recommended if clinically warranted. Jenn Campos MD [facility] /5:04 PM /5:14 PM
[2017-03-06] VITALS (35 sets, daily range): BP systolic 101–127; BP diastolic 66–79; PULSE 75–159; RESP 8–28; TEMP 98–98.5; O2SAT 94–100
[2017-03-06] MEDS ORDERED: METOPROLOL TARTRATE 25 MG TAB PO ONE (01:15)
[2017-03-06 01:23] LABS: APTT (PATIENT) 41.4 SEC (24.3-30.1)
[2017-03-06] MEDS: ACYCLOVIR IV SCH ×3 (01:27→16:30)
[2017-03-06] MEDS: SODIUM CHLOR 0.9% IV SCH ×3 (01:27→16:30)
[2017-03-06] MEDS: PHENYTOIN INJ 100 MG/2 ML VIAL IV SCH ×3 (04:58→21:20)
[2017-03-06] MEDS: NS + KCL 20 MEQ INJ 1,000 ML IV SCH ×2 (04:59→15:26)
[2017-03-06 05:43] LABS: AUTOMATED NEUTROPHIL # 10.9 TH/MM3 (1.8-7.7); BASOPHIL % 0.3 % (0.0-2.0); EOSINOPHIL % 0.1 % (0.0-4.0); HEMATOCRIT 41.1 % (39.0-51.0); HEMO FLAGS DIFF FINAL; LYMPH % 7.8 % (9.0-44.0); MEAN CELL VOLUME 93.5 FL (80.0-100.0); MEAN CORPUSCULAR HEMOGLOBIN 31.1 PG (27.0-34.0); MEAN CORPUSCULAR HGB CONC 33.3 % (32.0-36.0); MONO % 7.9 % (0.0-8.0); NEUT % 83.9 % (16.0-70.0); PLATELET COUNT 139 TH/MM3 (150-450); RED CELL DISTRIBUTION WIDTH 13.3 % (11.6-17.2)
[2017-03-06 06:17] LABS: BICARBONATE 27.8 MEQ/L (21.0-32.0); MAGNESIUM 2.3 MG/DL (1.5-2.5); POTASSIUM 3.7 MEQ/L (3.5-5.1)
[2017-03-06] MEDS: HEPARIN-D5W INJ 250 ML IV SCH (06:50)
[2017-03-06] MEDS: cefTRIAXone INJ 1,000 MG in SODIUM CHLORIDE 0.9% INJ 100 ML IV SCH ×2 (08:08→21:19)
[2017-03-06] MEDS: ASPIRIN 81 MG CHEW TAB PO SCH (08:08)
[2017-03-06] MEDS: METOPROLOL TARTRATE 25 MG TAB PO SCH ×2 (08:08→21:20)
[2017-03-06] MEDS: SODIUM CHLORIDE 0.9% FLUSH 10 ML FLUSH IV FLUSH SCH ×2 (08:09→21:19)
[2017-03-06] MEDS ORDERED: DILTIAZEM HCL 25 MG/5 ML VIAL IV PUSH ONE (08:45)
[2017-03-06] MEDS: DILTIAZEM 125 MG/NS 100 ML IV SCH ×6 (08:59→23:54)
--- NOTE | 2017-03-06 09:49 | HHI.PR ---
Subjective Remarks Follow-up CVA. Patient remains aphasic. He has been agitated and pulling out IVs. He also became extremely agitated yesterday and tried to jump out of bed. He has been placed in soft restraints. Objective Vitals Vital Signs Date Time Temp Pulse Resp B/P Pulse Ox O2 Delivery O2 Flow Rate FiO2 03/06/17 08:00 98.1 155 21 116/79 94 03/06/17 07:32 97 21 03/06/17 06:00 152 03/06/17 04:00 149 03/06/17 04:00 98.2 149 20 112/75 96 03/06/17 02:00 145 03/06/17 00:00 75 03/06/17 00:00 98.4 75 20 127/67 95 03/05/17 22:00 95 03/05/17 20:00 80 03/05/17 20:00 98.7 80 20 126/64 95 03/05/17 19:48 95 21 03/05/17 18:00 76 03/05/17 16:00 79 03/05/17 16:00 98.4 80 20 139/60 94 03/05/17 14:00 78 03/05/17 12:00 98.9 66 18 100/58 95 03/05/17 12:00 66 03/05/17 10:00 64 I/O 03/05/17 03/05/17 03/05/17 03/06/17 03/06/17 03/06/17 07:00 15:00 23:00 07:00 15:00 23:00 Intake Total 426 ml 1224 ml 658 ml 1025 ml Output Total 700 ml 350 ml 950 ml Balance 426 ml 524 ml 308 ml 75 ml Intake Oral 430 ml IV Total 426 ml 794 ml 658 ml 1025 ml Output Urine Total 700 ml 350 ml 950 ml Bladder Scan Volume Amount 680 ml # Voids 2 # Bowel Movements 0 0 Result Diagram: 03/06/17 0456 03/06/17 0456 Imaging Last Impressions Brain MRI 03/05/17 0000 Signed Impressions: Service Date/Time: Saturday, March 04, 2017 13:32 - CONCLUSION: 1. Atrophy and white matter disease. 2. 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 Given the unilateral appearance , the possibility of herpes encephalitis should be excluded. Singh Marcos MD Head Magnetic Resonance Angiography 03/04/17 0000 Signed Impressions: Service Date/Time: Saturday, March 04, 2017 13:32 - CONCLUSION: 1. Moderate focal stenosis of the left RESIDENT PHYSICIAN IN RADIOLOGY origin and proximal left [employer]IDENT PH[employer]ICIAN IN RADIOLOGY. 2. Otherwise, unremarkable MRA examination. No evidence for aneurysm, vascular malformation, or large vessel occlusion. Brandon Gama MD Head CT 03/03/171928 Signed Impressions: Service Date/Time: February 19:37 - CONCLUSION: 1. Mild atrophy and patchy chronic small vessel ischemic change. 2. No acute hemorrhage or mass effect. Scott Thompson MD Chest X-Ray 03/03/171928 Signed Impressions: Service Date/Time: February 19:36 - CONCLUSION: No acute disease. Scott Thompson MD Carotid Artery Ultrasound 03/03/17 0000 Signed Impressions: Service Date/Time: February 22:48 - CONCLUSION: No evidence for hemodynamically significant stenosis. Rossana Pike MD Aorta CTA 03/03/17 0000 Signed Impressions: Service Date/Time: February 21:12 - CONCLUSION: 1. Atherosclerotic changes in the aorta with no aneurysm or dissection. 2. Coronary artery calcifications. 3. Status post median sternotomy for bypass grafting procedure. Scott Thompson MD Objective Remarks General: Elderly male in no acute distress. In soft wrist and ankle restraints. Heart: Regular rate and rhythm. No murmur. Lungs: Clear to auscultation bilaterally. No wheezes, rales, or rhonchi. Breathing is nonlabored. Abdomen: Soft, nontender, nondistended. Extremities: No lower extremity edema. Psych: Alert, aphasic. Procedures None Urinary Catheter: Yes Assessment to: Continue Luna insert reason: Obstruction/Retention Vascular Central Line Catheter: No A/P Problem List: (1) CVA (cerebral vascular accident) ICD Code: I63.9 Status: Acute (2) Encephalopathy ICD Code: G93.40 Status: Acute (3) Elevated troponin I level ICD Code: R74.8 Status: Acute (4) UTI (urinary tract infection) ICD Code: N39.0 Status: Acute (5) Acute kidney injury ICD Code: N17.9 Status: Acute (6) Hyperlipidemia ICD Code: E78.5 Status: Acute (7) Coronary artery disease ICD Code: I25.10 Status: Acute (8) Urinary retention ICD Code: R33.9 Status: Acute Assessment and Plan 1. CVA: Patient has right hemiparesis and dysphasia. Appreciate neurology recommendations. EEG is abnormal. MRI brain ordered. PT/OT/ST. 2. Elevated troponin: Possible non-ST elevation DE. Appreciate cardiology recommendations. Not a candidate for cardiac catheterization at this time. On heparin drip. 3. UTI: Continue Rocephin. Urine culture is negative. 4. Lactic acidosis: Resolved. 5. Sepsis: Patient has leukocytosis, lactic acidosis. Source of infection appears to be UTI. WBCs are trending down. Lactic acidosis has resolved. 6. Acute kidney injury: Continue IV fluids. Monitor labs. 7. DVT prophylaxis: Heparin. 8. Rhabdomyolysis: CK is slightly lower this morning. Continue IV fluids. 9. Questionable seizure: Abnormal EEG. Appreciate neurology recommendations. Continue Dilantin. 10. Possible encephalitis: MRI findings consistent with encephalitis. Started on acyclovir by neurology. Consult infectious disease. 11. Urinary retention: Luna catheter in place. 12. Atrial fibrillation with RVR: Appreciate cardiology recommendations. Starting on Cardizem drip. Jignesh Gonzalez MD Mar 06, 2017 09:49
[2017-03-06 09:54] LABS: APTT (PATIENT) 31.1 SEC (24.3-30.1)
[2017-03-06] MEDS ORDERED: AMIODARONE INJ 150 MG in DEXTROSE 5% IN WATER 100ML INJ 97 ML IV ONE ×4 (10:00→12:45)
--- NOTE | 2017-03-06 10:08 | PD.CARD.PN ---
Subjective Subjective Remarks Patient's speech is gibberish Objective Medications Current Medications Medications (Trade) Dose Ordered Sig/Daniel Route Start Time Stop Time Status Last Admin (NS Flush) 2 ml UNSCH PRN IV FLUSH 03/03/17 22:15 (NS Flush) 2 ml BID IV FLUSH 03/04/17 09:00 03/06/17 08:09 (Narcan Inj) 0.4 mg UNSCH PRN IV 03/03/17 22:15 (D50w (Vial) Inj) 50 ml UNSCH PRN IV PUSH 03/03/17 22:15 Glucagon 1 mg 1 mg UNSCH PRN OTHER 03/03/17 22:15 Heparin Sodium/ Dextrose 250 ml @ 0 mls/hr TITRATE IV 03/03/17 23:00 03/06/17 06:50 (Rocephin Inj/NS Inj) 100 ml @ 200 mls/hr Q12H IV 03/04/17 09:00 03/06/17 08:08 (Zofran Inj) 4 mg Q6H PRN IV PUSH 03/04/17 03:00 03/04/17 15:35 (Aspirin Chew) 81 mg DAILY PO 03/04/17 09:00 03/06/17 08:08 (Lopressor) 12.5 mg Q12HR PO 03/04/17 09:00 03/06/17 08:08 (Pill Splitter) 1 ea UNSCH PRN OTHER 03/04/17 07:30 Phenytoin Sodium 100 mg 100 mg Q8H IV 03/04/17 20:00 03/06/17 04:58 Potassium Chloride/Sodium Chloride 1,000 ml @ 100 mls/hr Q10H IV 03/05/17 09:00 03/06/17 04:59 Acyclovir Sodium 740 mg/Sodium Chloride 150 ml @ 150 mls/hr Q8H IV 03/05/17 17:00 03/06/17 08:08 Diltiazem HCl 125 mg/Sodium Chloride 125 ml @ 0 mls/hr TITRATE IV 03/06/17 09:00 03/06/17 08:59 Amiodarone HCl 150 mg/Dextrose 100 ml @ 600 mls/hr ONCE ONCE IV 03/06/17 10:00 03/06/17 10:09 UNV (Cordarone Inj/ D5W 500 ml ([place] Bag)) 500 ml @ 0 mls/hr CONTINUOUS IV 03/06/17 10:00 UNV Vital Signs / I&O Vital Signs Date Time Temp Pulse Resp B/P Pulse Ox O2 Delivery O2 Flow Rate FiO2 03/06/17 08:00 98.1 155 21 116/79 94 03/06/17 07:32 97 21 03/06/17 06:00 152 03/06/17 04:00 149 03/06/17 04:00 98.2 149 20 112/75 96 03/06/17 02:00 145 03/06/17 00:00 75 03/06/17 00:00 98.4 75 20 127/67 95 03/05/17 22:00 95 03/05/17 20:00 80 03/05/17 20:00 98.7 80 20 126/64 95 03/05/17 19:48 95 21 03/05/17 18:00 76 03/05/17 16:00 79 03/05/17 16:00 98.4 80 20 139/60 94 03/05/17 14:00 78 03/05/17 12:00 98.9 66 18 100/58 95 03/05/17 12:00 66 I/O 03/05/17 03/05/17 03/05/17 03/06/17 03/06/17 03/06/17 07:00 15:00 23:00 07:00 15:00 23:00 Intake Total 426 ml 1224 ml 658 ml 1025 ml Output Total 700 ml 350 ml 950 ml Balance 426 ml 524 ml 308 ml 75 ml Intake Oral 430 ml IV Total 426 ml 794 ml 658 ml 1025 ml Output Urine Total 700 ml 350 ml 950 ml Bladder Scan Volume Amount 680 ml # Voids 2 # Bowel Movements 0 0 Physical Exam Alert, docile Chest clear anteriorly CV S1S2 tachycardic Abd soft Ext: no CCE Tele/EKG 2:1 atrial flutter - no effect from IV diltiazem IV amiodarone ordered Laboratory Laboratory Tests Test 03/05/17 03/06/17 03/06/17 13:06 00:23 04:56 Activated Partial 36.4 SEC 41.4 SEC Thromboplast Time White Blood Count 13.0 TH/MM3 Red Blood Count 4.40 MIL/MM3 Hemoglobin 13.7 GM/DL Hematocrit 41.1 % Mean Corpuscular Volume 93.5 FL Mean Corpuscular Hemoglobin 31.1 PG Mean Corpuscular Hemoglobin 33.3 % Concent Red Cell Distribution Width 13.3 % Platelet Count 139 TH/MM3 Mean Platelet Volume 9.5 FL Neutrophils (%) (Auto) 83.9 % Lymphocytes (%) (Auto) 7.8 % Monocytes (%) (Auto) 7.9 % Eosinophils (%) (Auto) 0.1 % Basophils (%) (Auto) 0.3 % Neutrophils # (Auto) 10.9 TH/MM3 Lymphocytes # (Auto) 1.0 TH/MM3 Monocytes # (Auto) 1.0 TH/MM3 Eosinophils # (Auto) 0.0 TH/MM3 Basophils # (Auto) 0.0 TH/MM3 CBC Comment DIFF FINAL Differential Comment Sodium Level 142 MEQ/L Potassium Level 3.7 MEQ/L Chloride Level 108 MEQ/L Carbon Dioxide Level 27.8 MEQ/L Anion Gap 6 MEQ/L Blood Urea Nitrogen 13 MG/DL Creatinine 0.68 MG/DL Estimat Glomerular Filtration 112 ML/MIN Rate Random Glucose 99 MG/DL Calcium Level 7.8 MG/DL Phosphorus Level 1.8 MG/DL Magnesium Level 2.3 MG/DL Total Creatine Kinase 6512 U/L Creatine Kinase MB 13.0 NG/ML Creatine Kinase MB % 0.2 % Imaging Last 48 hours Impressions Brain MRI 03/05/17 0000 Signed Impressions: Service Date/Time: Saturday, March 04, 2017 13:32 - CONCLUSION: 1. Atrophy and white matter disease. 2. 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 Given the unilateral appearance , the possibility of herpes encephalitis should be excluded. Singh Marcos MD Assessment and Plan Problem List: (1) Elevated troponin I level (2) Altered mental state Assessment and Plan: Ongoing. ? etiology. Not a classic CVA by MRI. MRI questions encephalitis. (3) Coronary artery disease Assessment and Plan: No angina. Patient appears alert, docile and comfortable (4) Atrial flutter Assessment and Plan: Persistent 2:1 conduction. Add IV amiodarone. If persists will cardiovert Eben Rabago MD Mar 06, 2017 10:08
[2017-03-06] MEDS: AMIODARONE INJ 450 MG in DEXTROSE 5% IN WATE(EXCEL) INJ 241 ML IV SCH ×4 (10:42→21:32)
--- NOTE | 2017-03-06 12:09 | PD.ID.CON ---
History of Present Illness Service ID Consult Requested By Dr. Gonzalez Reason for Consult Evaluation and Mment of possible encephalitis. Primary Care Physician Unknown Diagnoses: History of Present Illness Mr. Hackett is a 81-year-old male with past medical history significant for MS, hyperlipidemia, coronary artery disease status post coronary artery bypass graft. Most of the history was obtained by review of medical records as patient is not oriented. Reportedly patient was found by her roommate on the ground for an undetermined period of time. The roommate reportedly left at 9 AM for work and when he returned at 6:30 PM he found the patient on floor. There is reported history of bowel and bladder incontinence and the patient was found. Per review of records it appears that patient had right-sided hemiparesis upon arrival to the ED. Per discussion with the ICU nurse it appears that neurological deficit seems to have improved over time except the confusion and agitation that persists. Patient underwent an MRI which showed evidence of encephalitis. Patient is currently in the ICU under the care of an rougher helper. Patient is in the ICU and currently not on any pressors, remains on room air. Cardiology Dr. Rabago is on the case and patient is being treated for Atrial Flutter with Amiodarone and reportedly patient continues to have sustained atrial flutter and there is a plan for cardioversion later today. Patient is on a heparin drip at the present time. Discussed the case with Dr. Rabago and if after cardioversion patient's heart rate normalizes then there is a possibility that he may be able to have a lumbar puncture tomorrow to workup for encephalitis. Neurology is also following the patient and there is report of the EEG that is abnormal suggestive seizure activity. The patient has been empirically started on IV acyclovir for encephalitis. Infectious disease is consulted for evaluation and management of possible infectious encephalitis. Review of Systems ROS Limitations: Altered Mental Status Past Family Social History Allergies: Coded Allergies: UNOBTAINABLE (Unverified , 03/03/17) Past Medical History MS Hyperlipidemia CAD s/p CABG x 4 Past Surgical History CABG x 4 1998 Reported Medications None on chart. Patient unable to provide history. Active Ordered Medications Current Medications Medications (Trade) Dose Ordered Sig/Daniel Route Start Time Stop Time Status Last Admin (NS Flush) 2 ml UNSCH PRN IV FLUSH 03/03/17 22:15 (NS Flush) 2 ml BID IV FLUSH 03/04/17 09:00 7//17 08:09 (Narcan Inj) 0.4 mg UNSCH PRN IV 03/03/17 22:15 (D50w (Vial) Inj) 50 ml UNSCH PRN IV PUSH 03/03/17 22:15 Glucagon 1 mg 1 mg UNSCH PRN OTHER 03/03/17 22:15 Heparin Sodium/ Dextrose 250 ml @ 0 mls/hr TITRATE IV 03/03/17 23:00 03/06/17 06:50 (Rocephin Inj/NS Inj) 100 ml @ 200 mls/hr Q12H IV 03/04/17 09:00 03/06/17 08:08 (Zofran Inj) 4 mg Q6H PRN IV PUSH 03/04/17 03:00 03/04/17 15:35 (Aspirin Chew) 81 mg DAILY PO 03/04/17 09:00 03/06/17 08:08 (Lopressor) 12.5 mg Q12HR PO 03/04/17 09:00 03/06/17 08:08 (Pill Splitter) 1 ea UNSCH PRN OTHER 03/04/17 07:30 Phenytoin Sodium 100 mg 100 mg Q8H IV 03/04/17 20:00 03/06/17 13:32 Potassium Chloride/Sodium Chloride 1,000 ml @ 100 mls/hr Q10H IV 03/05/17 09:00 03/06/17 04:59 Acyclovir Sodium 740 mg/Sodium Chloride 150 ml @ 150 mls/hr Q8H IV 03/05/17 17:00 03/06/17 08:08 Diltiazem HCl 125 mg/Sodium Chloride 125 ml @ 0 mls/hr TITRATE IV 03/06/17 09:00 03/06/17 08:59 (Cordarone Inj/ D5W ([place]) Inj) 250 ml @ 0 mls/hr CONTINUOUS IV 03/06/17 10:00 03/06/17 10:42 Family History could not be obtained. Social History Could not be obtained Physical Exam Vital Signs Vital Signs Date Time Temp Pulse Resp B/P Pulse Ox O2 Delivery O2 Flow Rate FiO2 03/06/17 08:00 98.1 155 21 116/79 94 03/06/17 07:32 97 21 03/06/17 06:00 152 03/06/17 04:00 149 03/06/17 04:00 98.2 149 20 112/75 96 03/06/17 02:00 145 03/06/17 00:00 75 03/06/17 00:00 98.4 75 20 127/67 95 03/05/17 22:00 95 03/05/17 20:00 80 03/05/17 20:00 98.7 80 20 126/64 95 03/05/17 19:48 95 21 03/05/17 18:00 76 03/05/17 16:00 79 03/05/17 16:00 98.4 80 20 139/60 94 03/05/17 14:00 78 Physical Exam GENERAL: This is a well-nourished, well-developed patient, in no apparent distress. SKIN: No rashes, ecchymoses or lesions. Cool and dry. Bruising noted at some places. HEAD: Atraumatic. Normocephalic. No temporal or scalp tenderness. EYES: Pupils equal round and reactive. Extraocular motions intact. No scleral icterus. No injection or drainage. ENT: Nose without bleeding, purulent drainage or septal hematoma. Throat without erythema, tonsillar hypertrophy or exudate. Uvula midline. Airway patent. NECK: Trachea midline. Supple, nontender, no meningeal signs. CARDIOVASCULAR: Heart sounds audible. RESPIRATORY: Clear to auscultation. Breath sounds equal bilaterally. No wheezes , rales, or rhonchi. GASTROINTESTINAL: Abdomen soft, non-tender, nondistended. MUSCULOSKELETAL: Extremities without clubbing, cyanosis, or edema. No joint tenderness, effusion, or edema noted. No calf tenderness. Negative Homans sign bilaterally. NEUROLOGICAL: Awake, alert. Not oriented to time place person. Kept repeating his name for every question I asked him. Psych could not be assessed IV line sites with no evidence of infection. Laboratory Laboratory Tests Test 03/05/17 03/06/17 03/06/17 03/06/17 13:06 00:23 04:56 08:31 Activated Partial 36.4 41.4 31.1 Thromboplast Time White Blood Count 13.0 Red Blood Count 4.40 Hemoglobin 13.7 Hematocrit 41.1 Mean Corpuscular Volume 93.5 Mean Corpuscular Hemoglobin 31.1 Mean Corpuscular Hemoglobin 33.3 Concent Red Cell Distribution Width 13.3 Platelet Count 139 Mean Platelet Volume 9.5 Neutrophils (%) (Auto) 83.9 Lymphocytes (%) (Auto) 7.8 Monocytes (%) (Auto) 7.9 Eosinophils (%) (Auto) 0.1 Basophils (%) (Auto) 0.3 Neutrophils # (Auto) 10.9 Lymphocytes # (Auto) 1.0 Monocytes # (Auto) 1.0 Eosinophils # (Auto) 0.0 Basophils # (Auto) 0.0 CBC Comment DIFF FINAL Differential Comment Sodium Level 142 Potassium Level 3.7 Chloride Level 108 Carbon Dioxide Level 27.8 Anion Gap 6 Blood Urea Nitrogen 13 Creatinine 0.68 Estimat Glomerular Filtration 112 Rate Random Glucose 99 Calcium Level 7.8 Phosphorus Level 1.8 Magnesium Level 2.3 Total Creatine Kinase 6512 Creatine Kinase MB 13.0 Creatine Kinase MB % 0.2 Date/Time Procedure Status Source Growth 03/03/17 21:00 Urine Culture - Final Complete Urine Catheterized Urine NO GROWTH IN 48 HOURS. Result Diagram: 03/06/17 0456 03/06/17 0456 Imaging Last Impressions Brain MRI 03/05/17 0000 Signed Impressions: Service Date/Time: Saturday, March 04, 2017 13:32 - CONCLUSION: 1. Atrophy and white matter disease. 2. 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 Given the unilateral appearance , the possibility of herpes encephalitis should be excluded. Singh Marcos MD Head Magnetic Resonance Angiography 03/04/17 0000 Signed Impressions: Service Date/Time: Saturday, March 04, 2017 13:32 - CONCLUSION: 1. Moderate focal stenosis of the left [employer] origin and proximal left [employer]. 2. Otherwise, unremarkable MRA examination. No evidence for aneurysm, vascular malformation, or large vessel occlusion. Brandon Gama MD Head CT 03/03/171928 Signed Impressions: Service Date/Time: February 19:37 - CONCLUSION: 1. Mild atrophy and patchy chronic small vessel ischemic change. 2. No acute hemorrhage or mass effect. Scott Thompson MD Chest X-Ray 03/03/171928 Signed Impressions: Service Date/Time: February 19:36 - CONCLUSION: No acute disease. Scott Thompson MD Carotid Artery Ultrasound 03/03/17 0000 Signed Impressions: Service Date/Time: February 22:48 - CONCLUSION: No evidence for hemodynamically significant stenosis. Rossana Pike MD Aorta CTA 03/03/17 0000 Signed Impressions: Service Date/Time: February 21:12 - CONCLUSION: 1. Atherosclerotic changes in the aorta with no aneurysm or dissection. 2. Coronary artery calcifications. 3. Status post median sternotomy for bypass grafting procedure. Scott Thompson MD Assessment and Plan Assessment and Plan SIRS possible sepsis present on admission. 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 Seizure ? new onset. CAD, s/p CABG Leucocytosis: infection, stress Elevated CK with mild ARF on admission: Possible mild rhabdo secondary to seizures. Atrial Flutter cardioversion Recs Blood cultures 2. HSV-1 and 2 IgM HIV antibody hepatitis profile Discussed the case with Dr. Rabago: If after cardioversion today patient's heart rate normalizes the next 24 hours and will order tests for lumbar puncture. Discussed this with Dr. Gonzalez. John Ornelas Follow cultures Follow clinically. Cher Lucas MD Mar 06, 2017 12:09
[2017-03-06] MEDS ORDERED: PROPOFOL 500 MG/50 ML INJ 50 ML ONE (12:12)
[2017-03-06] MEDS ORDERED: MIDAZOLAM HCL 5 MG/ML VIAL (1 ML) ONE (12:13)
[2017-03-06] MEDS ORDERED: ETOMIDATE 20 MG/10 ML VIAL ONE (12:13)
[2017-03-06] MEDS ORDERED: PROPOFOL 200 MG/20 ML AMP IV ONE (12:30)
[2017-03-06] MEDS ORDERED: MIDAZOLAM HCL 2 MG/2 ML VIAL IV ONE (12:30)
[2017-03-06] MEDS ORDERED: ETOMIDATE 20 MG/10 ML VIAL IV PUSH ONE (12:30)
[2017-03-06] MEDS ORDERED: DIGOXIN 0.5 MG/2 ML VIAL IV PUSH ONE (13:00)
[2017-03-06] MEDS ORDERED: DIGOXIN 0.5 MG/2 ML VIAL ONE (13:00)
--- NOTE | 2017-03-06 13:09 | HHI.PR ---
Review/Management Daily Summary 03/05 he is starting to talk but not much and not making much sense, staff reported some agitation and had to be restrained i saw him about 2 hours ago and just reviewed the mri brain which shows left more than right mesial temp lobe signal change possible encephalitis, afebrile start empiric acyclovir iv, unable to do LP as he is on heparin will likely need lp later on and would send autoimmune encephalitis pannel repeat eeg dilantin as is , level 17 Subjective Subjective Comments no seizures aphasia persists but he is pleasant and speaking nonsense, talks some words with no attachment to anything obvious no distress, afebrile A Flutter this am, spoke with cardio empiric acyclovir ??HSV, clinically not in favor but MRI, 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 LP later on (on heparin now) as well as follow up mri and follow up with ID as well Active Medications Current Medications Medications (Trade) Dose Ordered Sig/Daniel Route Start Time Stop Time Status Last Admin (NS Flush) 2 ml UNSCH PRN IV FLUSH 03/03/17 22:15 (NS Flush) 2 ml BID IV FLUSH 03/04/17 09:00 03/06/17 08:09 (Narcan Inj) 0.4 mg UNSCH PRN IV 03/03/17 22:15 (D50w (Vial) Inj) 50 ml UNSCH PRN IV PUSH 03/03/17 22:15 Glucagon 1 mg 1 mg UNSCH PRN OTHER 03/03/17 22:15 Heparin Sodium/ Dextrose 250 ml @ 0 mls/hr TITRATE IV 03/03/17 23:00 03/06/17 06:50 (Rocephin Inj/NS Inj) 100 ml @ 200 mls/hr Q12H IV 03/04/17 09:00 03/06/17 08:08 (Zofran Inj) 4 mg Q6H PRN IV PUSH 03/04/17 03:00 03/04/17 15:35 (Aspirin Chew) 81 mg DAILY PO 03/04/17 09:00 03/06/17 08:08 (Lopressor) 12.5 mg Q12HR PO 03/04/17 09:00 03/06/17 08:08 (Pill Splitter) 1 ea UNSCH PRN OTHER 03/04/17 07:30 Phenytoin Sodium 100 mg 100 mg Q8H IV 03/04/17 20:00 03/06/17 04:58 Potassium Chloride/Sodium Chloride 1,000 ml @ 100 mls/hr Q10H IV 03/05/17 09:00 03/06/17 04:59 Acyclovir Sodium 740 mg/Sodium Chloride 150 ml @ 150 mls/hr Q8H IV 03/05/17 17:00 03/06/17 08:08 Diltiazem HCl 125 mg/Sodium Chloride 125 ml @ 0 mls/hr TITRATE IV 03/06/17 09:00 03/06/17 08:59 (Cordarone Inj/ D5W ([place]) Inj) 250 ml @ 0 mls/hr CONTINUOUS IV 03/06/17 10:00 03/06/17 10:42 (Lanoxin Inj) 0.25 mg ONCE ONCE IV PUSH 03/06/17 13:00 03/06/17 13:01 Allergies Allergies Coded Allergies UNOBTAINABLE (Unverified03/03/17) Exam I&O / VS 03/05/17 03/05/17 03/06/17 15:00 23:00 07:00 Intake Total 1224 ml 658 ml 1025 ml Output Total 700 ml 350 ml 950 ml Balance 524 ml 308 ml 75 ml Intake Oral 430 ml IV Total 794 ml 658 ml 1025 ml Output Urine Total 700 ml 350 ml 950 ml Bladder Scan Volume Amount 680 ml # Bowel Movements 0 0 Vital Signs Date Time Temp Pulse Resp B/P Pulse Ox O2 Delivery O2 Flow Rate FiO2 03/06/17 12:00 153 03/06/17 11:00 149 03/06/17 10:00 155 03/06/17 09:00 155 03/06/17 08:00 98.1 155 21 116/79 94 03/06/17 08:00 152 03/06/17 07:32 97 21 03/06/17 07:05 151 03/06/17 06:00 152 03/06/17 04:00 149 03/06/17 04:00 98.2 149 20 112/75 96 03/06/17 02:00 145 03/06/17 00:00 75 03/06/17 00:00 98.4 75 20 127/67 95 03/05/17 22:00 95 03/05/17 20:00 80 03/05/17 20:00 98.7 80 20 126/64 95 03/05/17 19:48 95 21 03/05/17 18:00 76 03/05/17 16:00 79 03/05/17 16:00 98.4 80 20 139/60 94 03/05/17 14:00 78 Objective Micro and Labs Laboratory Tests Test 03/05/17 03/06/17 03/06/17 03/06/17 13:06 00:23 04:56 08:31 Activated Partial 36.4 41.4 31.1 Thromboplast Time White Blood Count 13.0 Red Blood Count 4.40 Hemoglobin 13.7 Hematocrit 41.1 Mean Corpuscular Volume 93.5 Mean Corpuscular Hemoglobin 31.1 Mean Corpuscular Hemoglobin 33.3 Concent Red Cell Distribution Width 13.3 Platelet Count 139 Mean Platelet Volume 9.5 Neutrophils (%) (Auto) 83.9 Lymphocytes (%) (Auto) 7.8 Monocytes (%) (Auto) 7.9 Eosinophils (%) (Auto) 0.1 Basophils (%) (Auto) 0.3 Neutrophils # (Auto) 10.9 Lymphocytes # (Auto) 1.0 Monocytes # (Auto) 1.0 Eosinophils # (Auto) 0.0 Basophils # (Auto) 0.0 CBC Comment DIFF FINAL Differential Comment Sodium Level 142 Potassium Level 3.7 Chloride Level 108 Carbon Dioxide Level 27.8 Anion Gap 6 Blood Urea Nitrogen 13 Creatinine 0.68 Estimat Glomerular Filtration 112 Rate Random Glucose 99 Calcium Level 7.8 Phosphorus Level 1.8 Magnesium Level 2.3 Total Creatine Kinase 6512 Creatine Kinase MB 13.0 Creatine Kinase MB % 0.2 Date/Time Procedure Status Source Growth 03/03/17 21:00 Urine Culture - Final Complete Urine Catheterized Urine NO GROWTH IN 48 HOURS. John Campos MD Mar 06, 2017 13:09
--- NOTE | 2017-03-06 14:22 | EKG ---
Date Performed: 03/06/2017 Time Performed: 07:23:06 PTAGE: 81 years EKG: Atrial flutter with uncontrolled ventricular response with 2:1 A-V block [employer] omplete right bundle branch block Inferior T wave changes are nonspecific Low QRS voltages in limb le ads Abnormal ECG PREVIOUS TRACING 03/04/2017 Since the prior tracing, the atrial flutter is new. The incomplete right bundle branch block is new. Clinical correlation is advised. DOCTOR: Lola Davis Interpretating Date/Time 03/06/2017 14:20:39
[2017-03-06] MEDS ORDERED: METOPROLOL TARTRATE 5 MG/5 ML VIAL IV PUSH PRN (18:30)
[2017-03-06] MEDS ORDERED: METOPROLOL TARTRATE 5 MG/5 ML VIAL IV PUSH ONE (18:30)
[2017-03-06] MEDS: METOPROLOL TARTRATE 5 MG/5 ML VIAL IV PRN ×4 (18:52→23:58)
[2017-03-06 19:51] LABS: APTT (PATIENT) 40.5 SEC (24.3-30.1)
[2017-03-07] VITALS (25 sets, daily range): BP systolic 100–127; BP diastolic 59–83; PULSE 66–157; RESP 20–24; TEMP 98.3–99.2; O2SAT 94–100
[2017-03-07] MEDS: ACYCLOVIR IV SCH ×3 (00:14→17:20)
[2017-03-07] MEDS: SODIUM CHLOR 0.9% IV SCH ×3 (00:14→17:20)
[2017-03-07] MEDS: METOPROLOL TARTRATE 5 MG/5 ML VIAL IV PRN ×4 (00:14→08:13)
[2017-03-07] MEDS: NS + KCL 20 MEQ INJ 1,000 ML IV SCH ×2 (00:15→08:56)
[2017-03-07 03:36] LABS: AUTOMATED NEUTROPHIL # 9.7 TH/MM3 (1.8-7.7); BASOPHIL % 0.3 % (0.0-2.0); EOSINOPHIL # 0.1 TH/MM3 (0-0.4); EOSINOPHIL % 0.5 % (0.0-4.0); HEMATOCRIT 43.5 % (39.0-51.0); HEMO FLAGS DIFF FINAL; LYMPH % 8.4 % (9.0-44.0); MEAN CELL VOLUME 93.2 FL (80.0-100.0); MEAN CORPUSCULAR HEMOGLOBIN 31.2 PG (27.0-34.0); MEAN CORPUSCULAR HGB CONC 33.5 % (32.0-36.0); MONO % 8.2 % (0.0-8.0); NEUT % 82.6 % (16.0-70.0); PLATELET COUNT 163 TH/MM3 (150-450); RED BLOOD COUNT 4.67 MIL/MM3 (4.50-5.90); RED CELL DISTRIBUTION WIDTH 13.1 % (11.6-17.2); WHITE BLOOD COUNT 11.8 TH/MM3 (4.0-11.0)
[2017-03-07 03:55] LABS: BICARBONATE 28.1 MEQ/L (21.0-32.0); POTASSIUM 3.6 MEQ/L (3.5-5.1)
[2017-03-07 04:06] LABS: APTT (PATIENT) 41.9 SEC (24.3-30.1)
[2017-03-07 04:42] LABS: CKMB 12.3 NG/ML (0.5-3.6)
[2017-03-07] MEDS: PHENYTOIN INJ 100 MG/2 ML VIAL IV SCH ×3 (05:07→20:26)
[2017-03-07] MEDS: HEPARIN-D5W INJ 250 ML IV SCH (05:21)
[2017-03-07] MEDS: ASPIRIN 81 MG CHEW TAB PO SCH (08:11)
[2017-03-07] MEDS: METOPROLOL TARTRATE 25 MG TAB PO SCH ×2 (08:11→21:27)
[2017-03-07] MEDS: cefTRIAXone INJ 1,000 MG in SODIUM CHLORIDE 0.9% INJ 100 ML IV SCH ×2 (08:12→21:27)
[2017-03-07 08:13] LABS: APTT (PATIENT) 40.6 SEC (24.3-30.1)
[2017-03-07] MEDS: SODIUM CHLORIDE 0.9% FLUSH 10 ML FLUSH IV FLUSH SCH ×2 (08:13→21:27)
[2017-03-07] MEDS: DILTIAZEM 125 MG/NS 100 ML IV SCH ×2 (08:56)
[2017-03-07] MEDS: AMIODARONE INJ 450 MG in DEXTROSE 5% IN WATE(EXCEL) INJ 241 ML IV SCH ×2 (11:38)
--- NOTE | 2017-03-07 11:52 | MR ---
cc: NADINE FOUNTAIN M.D. DATE: 03/06/2017 PROCEDURE Synchronized cardioversion. BRIEF HISTORY Az Hackett is a 81-year-old man who has gone into sustained atrial flutter with 2:1 conduction. He has not responded so far to IV Cardizem, IV metoprolol and IV amiodarone. He is still in 2:1 conduction. DESCRIPTION OF PROCEDURE Sedation was provided by the belt polisher. A 50 joules synchronized shock was delivered which converted him to sinus rhythm, but within 30 seconds went back into atrial flutter. A second shock was performed as he was still sedated. Again he went into sinus rhythm but flipped right back into 2:1 flutter. There were no complications. CONCLUSIONS Failed attempt at cardioversion to sinus rhythm. PLAN I am going to give additional amiodarone and start digoxin as well and try to get him converted. MD ANNA Alvarado/CORINE /12:47 PM /11:47 AM
--- NOTE | 2017-03-07 14:00 | HHI.PR ---
Review/Management Daily Summary 03/05 he is starting to talk but not much and not making much sense, staff reported some agitation and had to be restrained i saw him about 2 hours ago and just reviewed the mri brain which shows left more than right mesial temp lobe signal change possible encephalitis, afebrile start empiric acyclovir iv, unable to do LP as he is on heparin will likely need lp later on and would send autoimmune encephalitis pannel repeat eeg dilantin as is , level 17 03/07 awake and pleasant, aphasic and confused at times will follow simple commands cardio cath plans discussed with JEANNIE balderas continue neuro care as is possible LP afetr cardio stable and off blood thinner mri brain f/u tomorrow Subjective Subjective Comments No seizures Active Medications Current Medications Medications (Trade) Dose Ordered Sig/Daniel Route Start Time Stop Time Status Last Admin (NS Flush) 2 ml UNSCH PRN IV FLUSH 03/03/17 22:15 03/07/17 08:13 (NS Flush) 2 ml BID IV FLUSH 03/04/17 09:00 03/07/17 08:13 (Narcan Inj) 0.4 mg UNSCH PRN IV 03/03/17 22:15 (D50w (Vial) Inj) 50 ml UNSCH PRN IV PUSH 03/03/17 22:15 Glucagon 1 mg 1 mg UNSCH PRN OTHER 03/03/17 22:15 Heparin Sodium/ Dextrose 250 ml @ 0 mls/hr TITRATE IV 03/03/17 23:00 03/07/17 05:21 (Rocephin Inj/NS Inj) 100 ml @ 200 mls/hr Q12H IV 03/04/17 09:00 03/07/17 08:12 (Zofran Inj) 4 mg Q6H PRN IV PUSH 03/04/17 03:00 03/04/17 15:35 (Aspirin Chew) 81 mg DAILY PO 03/04/17 09:00 03/07/17 08:11 (Lopressor) 12.5 mg Q12HR PO 03/04/17 09:00 03/07/17 08:11 (Pill Splitter) 1 ea UNSCH PRN OTHER 03/04/17 07:30 Phenytoin Sodium 100 mg 100 mg Q8H IV 03/04/17 20:00 03/07/17 11:38 Potassium Chloride/Sodium Chloride 1,000 ml @ 100 mls/hr Q10H IV 03/05/17 09:00 03/07/17 08:56 Acyclovir Sodium 740 mg/Sodium Chloride 150 ml @ 150 mls/hr Q8H IV 03/05/17 17:00 03/07/17 08:56 Diltiazem HCl 125 mg/Sodium Chloride 125 ml @ 0 mls/hr TITRATE IV 03/06/17 09:00 03/07/17 08:56 (Cordarone Inj/ D5W ([place]) Inj) 250 ml @ 0 mls/hr CONTINUOUS IV 03/06/17 10:00 03/07/17 11:38 (Lopressor Inj) 5 mg Q2H PRN IV 03/06/17 20:30 03/07/17 08:13 Allergies Allergies Coded Allergies UNOBTAINABLE (Unverified03/03/17) Exam I&O / VS 03/06/17 03/06/17 03/07/17 15:00 23:00 07:00 Intake Total 2305 ml 1104 ml Output Total 850 ml 650 ml Balance 1455 ml 454 ml IV Total 2305 ml 1104 ml Output Urine Total 850 ml 650 ml # Bowel Movements 0 0 Vital Signs Date Time Temp Pulse Resp B/P Pulse Ox O2 Delivery O2 Flow Rate FiO2 03/07/17 07:37 97 Nasal Cannula 2.00 03/07/17 06:00 152 03/07/17 04:00 149 03/07/17 04:00 98.7 149 20 94 03/07/17 02:30 152 03/07/17 02:15 152 03/07/17 02:01 153 03/07/17 02:00 153 03/07/17 01:45 152 03/07/17 01:30 152 03/07/17 01:15 152 03/07/17 01:00 150 03/07/17 00:46 147 03/07/17 00:31 146 03/07/17 00:15 146 03/07/17 00:01 146 03/07/17 00:00 146 03/07/17 00:00 98.3 146 20 114/83 95 03/06/17 22:14 97 Nasal Cannula 2.00 03/06/17 22:00 152 03/06/17 20:00 98.0 149 20 116/77 97 03/06/17 20:00 149 03/06/17 19:45 149 18 113/78 96 03/06/17 19:30 149 8 109/74 97 03/06/17 19:15 149 21 101/66 96 03/06/17 19:01 149 26 96 03/06/17 19:00 149 28 115/71 96 03/06/17 18:45 159 19 119/77 97 03/06/17 18:30 158 26 118/73 96 03/06/17 18:15 155 26 114/78 98 03/06/17 18:01 156 12 97 03/06/17 18:00 156 03/06/17 18:00 156 20 111/74 97 03/06/17 17:45 156 21 115/72 96 03/06/17 17:30 156 25 114/69 96 03/06/17 17:15 153 23 116/69 100 03/06/17 17:01 153 26 97 03/06/17 17:00 153 24 115/73 96 03/06/17 16:45 152 27 114/77 97 03/06/17 16:30 151 20 108/78 97 03/06/17 16:15 152 26 109/79 97 03/06/17 16:01 149 24 100 03/06/17 16:00 149 03/06/17 16:00 98.2 156 20 111/74 97 03/06/17 14:00 144 Objective Micro and Labs Laboratory Tests Test 03/06/17 03/06/17 03/07/17 03/07/17 14:55 19:02 03:16 07:44 C-Reactive Protein 6.61 Hepatitis A IgM Antibody NEGATIVE Hepatitis B Surface Antigen NEGATIVE Hepatitis B Core IgM Antibody NEGATIVE Hepatitis C Antibody NEGATIVE HIV (1&2) Antibody NEGATIVE Activated Partial 40.5 41.9 40.6 Thromboplast Time White Blood Count 11.8 Red Blood Count 4.67 Hemoglobin 14.6 Hematocrit 43.5 Mean Corpuscular Volume 93.2 Mean Corpuscular Hemoglobin 31.2 Mean Corpuscular Hemoglobin 33.5 Concent Red Cell Distribution Width 13.1 Platelet Count 163 Mean Platelet Volume 9.2 Neutrophils (%) (Auto) 82.6 Lymphocytes (%) (Auto) 8.4 Monocytes (%) (Auto) 8.2 Eosinophils (%) (Auto) 0.5 Basophils (%) (Auto) 0.3 Neutrophils # (Auto) 9.7 Lymphocytes # (Auto) 1.0 Monocytes # (Auto) 1.0 Eosinophils # (Auto) 0.1 Basophils # (Auto) 0.0 CBC Comment DIFF FINAL Differential Comment Sodium Level 142 Potassium Level 3.6 Chloride Level 109 Carbon Dioxide Level 28.1 Anion Gap 5 Blood Urea Nitrogen 13 Creatinine 0.73 Estimat Glomerular Filtration 104 Rate Random Glucose 116 Calcium Level 7.5 Total Creatine Kinase 3911 Creatine Kinase MB 12.3 Creatine Kinase MB % 0.3 Date/Time Procedure Status Source Growth 03/06/17 15:15 Aerobic Blood Culture - Preliminary Resulted Blood Peripheral NO GROWTH IN 1 DAY 03/06/17 15:15 Anaerobic Blood Culture - Preliminary Resulted Blood Peripheral NO GROWTH IN 1 DAY 03/03/17 21:00 Urine Culture - Final Complete Urine Catheterized Urine NO GROWTH IN 48 HOURS. John Campos MD Mar 07, 2017 14:00
--- NOTE | 2017-03-07 14:06 | PD.CARD.PN ---
Subjective Subjective Remarks Patient seen this AM but charting now. Pt. without complaints Objective Medications Current Medications Medications (Trade) Dose Ordered Sig/Daniel Route Start Time Stop Time Status Last Admin (NS Flush) 2 ml UNSCH PRN IV FLUSH 03/03/17 22:15 03/07/17 08:13 (NS Flush) 2 ml BID IV FLUSH 03/04/17 09:00 03/07/17 08:13 (Narcan Inj) 0.4 mg UNSCH PRN IV 03/03/17 22:15 (D50w (Vial) Inj) 50 ml UNSCH PRN IV PUSH 03/03/17 22:15 Glucagon 1 mg 1 mg UNSCH PRN OTHER 03/03/17 22:15 Heparin Sodium/ Dextrose 250 ml @ 0 mls/hr TITRATE IV 03/03/17 23:00 03/07/17 05:21 (Rocephin Inj/NS Inj) 100 ml @ 200 mls/hr Q12H IV 03/04/17 09:00 03/07/17 08:12 (Zofran Inj) 4 mg Q6H PRN IV PUSH 03/04/17 03:00 03/04/17 15:35 (Aspirin Chew) 81 mg DAILY PO 03/04/17 09:00 03/07/17 08:11 (Lopressor) 12.5 mg Q12HR PO 03/04/17 09:00 03/07/17 08:11 (Pill Splitter) 1 ea UNSCH PRN OTHER 03/04/17 07:30 Phenytoin Sodium 100 mg 100 mg Q8H IV 03/04/17 20:00 03/07/17 11:38 Potassium Chloride/Sodium Chloride 1,000 ml @ 100 mls/hr Q10H IV 03/05/17 09:00 03/07/17 08:56 Acyclovir Sodium 740 mg/Sodium Chloride 150 ml @ 150 mls/hr Q8H IV 03/05/17 17:00 03/07/17 08:56 Diltiazem HCl 125 mg/Sodium Chloride 125 ml @ 0 mls/hr TITRATE IV 03/06/17 09:00 03/07/17 08:56 (Cordarone Inj/ D5W (Elsah) Inj) 250 ml @ 0 mls/hr CONTINUOUS IV 03/06/17 10:00 03/07/17 11:38 (Lopressor Inj) 5 mg Q2H PRN IV 03/06/17 20:30 03/07/17 08:13 Vital Signs / I&O Vital Signs Date Time Temp Pulse Resp B/P Pulse Ox O2 Delivery O2 Flow Rate FiO2 03/07/17 07:37 97 Nasal Cannula 2.00 03/07/17 06:00 152 03/07/17 04:00 149 03/07/17 04:00 98.7 149 20 94 03/07/17 02:30 152 03/07/17 02:15 152 03/07/17 02:01 153 03/07/17 02:00 153 03/07/17 01:45 152 03/07/17 01:30 152 03/07/17 01:15 152 03/07/17 01:00 150 03/07/17 00:46 147 03/07/17 00:31 146 03/07/17 00:15 146 03/07/17 00:01 146 03/07/17 00:00 146 03/07/17 00:00 98.3 146 20 114/83 95 03/06/17 22:14 97 Nasal Cannula 2.00 03/06/17 22:00 152 03/06/17 20:00 98.0 149 20 116/77 97 03/06/17 20:00 149 03/06/17 19:45 149 18 113/78 96 03/06/17 19:30 149 8 109/74 97 03/06/17 19:15 149 21 101/66 96 03/06/17 19:01 149 26 96 03/06/17 19:00 149 28 115/71 96 03/06/17 18:45 159 19 119/77 97 03/06/17 18:30 158 26 118/73 96 03/06/17 18:15 155 26 114/78 98 03/06/17 18:01 156 12 97 03/06/17 18:00 156 03/06/17 18:00 156 20 111/74 97 03/06/17 17:45 156 21 115/72 96 03/06/17 17:30 156 25 114/69 96 03/06/17 17:15 153 23 116/69 100 03/06/17 17:01 153 26 97 03/06/17 17:00 153 24 115/73 96 03/06/17 16:45 152 27 114/77 97 03/06/17 16:30 151 20 108/78 97 03/06/17 16:15 152 26 109/79 97 03/06/17 16:01 149 24 100 03/06/17 16:00 149 03/06/17 16:00 98.2 156 20 111/74 97 I/O 03/06/17 03/06/17 03/06/17 03/07/17 03/07/17 03/07/17 07:00 15:00 23:00 07:00 15:00 23:00 Intake Total 1025 ml 2305 ml 1104 ml Output Total 950 ml 850 ml 650 ml Balance 75 ml 1455 ml 454 ml IV Total 1025 ml 2305 ml 1104 ml Output Urine Total 950 ml 850 ml 650 ml # Bowel Movements 0 0 0 Physical Exam Alert, docile Chest clear anteriorly CV S1S2 tachycardic Abd soft Ext: no CCE Tele/EKG 2:1 atrial flutter - no effect from IV diltiazem, IV amio or DCCV Laboratory Laboratory Tests Test 03/06/17 03/06/17 03/07/17 03/07/17 14:55 19:02 03:16 07:44 C-Reactive Protein 6.61 MG/DL Hepatitis A IgM Antibody NEGATIVE Hepatitis B Surface Antigen NEGATIVE Hepatitis B Core IgM Antibody NEGATIVE Hepatitis C Antibody NEGATIVE HIV (1&2) Antibody NEGATIVE Activated Partial 40.5 SEC 41.9 SEC 40.6 SEC Thromboplast Time White Blood Count 11.8 TH/MM3 Red Blood Count 4.67 MIL/MM3 Hemoglobin 14.6 GM/DL Hematocrit 43.5 % Mean Corpuscular Volume 93.2 FL Mean Corpuscular Hemoglobin 31.2 PG Mean Corpuscular Hemoglobin 33.5 % Concent Red Cell Distribution Width 13.1 % Platelet Count 163 TH/MM3 Mean Platelet Volume 9.2 FL Neutrophils (%) (Auto) 82.6 % Lymphocytes (%) (Auto) 8.4 % Monocytes (%) (Auto) 8.2 % Eosinophils (%) (Auto) 0.5 % Basophils (%) (Auto) 0.3 % Neutrophils # (Auto) 9.7 TH/MM3 Lymphocytes # (Auto) 1.0 TH/MM3 Monocytes # (Auto) 1.0 TH/MM3 Eosinophils # (Auto) 0.1 TH/MM3 Basophils # (Auto) 0.0 TH/MM3 CBC Comment DIFF FINAL Differential Comment Sodium Level 142 MEQ/L Potassium Level 3.6 MEQ/L Chloride Level 109 MEQ/L Carbon Dioxide Level 28.1 MEQ/L Anion Gap 5 MEQ/L Blood Urea Nitrogen 13 MG/DL Creatinine 0.73 MG/DL Estimat Glomerular Filtration 104 ML/MIN Rate Random Glucose 116 MG/DL Calcium Level 7.5 MG/DL Total Creatine Kinase 3911 U/L Creatine Kinase MB 12.3 NG/ML Creatine Kinase MB % 0.3 % Assessment and Plan Problem List: (1) Elevated troponin I level (2) Altered mental state (3) Coronary artery disease (4) Atrial flutter Assessment and Plan: Consult Dr. Faye for ablation - Greatly appreciate his expert assistance! Eben Rabago MD Mar 07, 2017 14:06
[2017-03-07] MEDS ORDERED: ISOPROTERENOL HCL 1 MG/5 ML AMP ONE (15:09)
[2017-03-07] MEDS ORDERED: PROTAMINE SULFATE 50 MG/5 ML VIAL ONE (15:13)
[2017-03-07] MEDS ORDERED: HEPARIN SODIUM - IV 10,000 UNITS/10 ML VIAL ONE (15:13)
[2017-03-07] MEDS ORDERED: PHENYLEPHRINE HCL 10 MG/ML VIAL IV ONE (15:24)
[2017-03-07] MEDS ORDERED: PROPOFOL 200 MG/20 ML AMP IV ONE (15:24)
[2017-03-07] MEDS ORDERED: SODIUM CHLOR 0.9% 1000 ML BAG IV ONE (15:24)
--- NOTE | 2017-03-07 15:51 | OTSOAPIP ---
TIME SESSION COMPLETED: 1300 TREATMENT TIME: 0 MINS. CHART REVIEWED. INTERDISCIPLINARY COMMUNICATION: NURSING REQUESTED TO HOLD TREATMENT TODAY PATIENTS HEART RATE 155 PLAN: WILL SEE PATIENT NEXT TREATMENT DAY Therapist: RITA BERGMAN/Tiffanie Signature on file
[2017-03-07] MEDS ORDERED: ONDANSETRON HCL 4 MG/2 ML VIAL IV PRN (16:30)
[2017-03-07] MEDS ORDERED: ATROPINE SULFATE 1 MG/ML VIAL IV PRN ×2 (16:30)
[2017-03-07] MEDS ORDERED: METOCLOPRAMIDE HCL 10 MG/2 ML VIAL IV PRN ×2 (16:30)
[2017-03-07] MEDS ORDERED: BACITRACIN OINT 0.9 GM PKT TOP ONE ×2 (16:30)
[2017-03-07] MEDS ORDERED: SODIUM CHLOR 0.9% 250 ML INJ 250 ML IV PRN ×2 (16:30)
--- NOTE | 2017-03-07 16:36 | CATHPROC ---
[facility] HIS Report Study Information Study Number Admission Scheduled Start Study Start [id number] Mar 03 2017 9:58PM 03/07/2017 Mar 07 2017 2:42PM [place] Service Electrophysiology Study Admit Source Facility Department Other [facility] - Tool Shaper Setup Operator Physician and Clinical Staff Initial Mauricio Gonzáles Ground Transportation Operator Martell Miles,RT(R) Ground Transportation Operator Rosario Jessica,FIGURE MODEL TECH2 Other Anesthesia, LOTTERIES AGENT Recorder Oralia Munoz BSRN Recorder Jessica Colon,JEANNIE Scrub Anitha Cruz,RT(R) TECH2 Procedures Performed Procedure Location (Site) Vessel Name Ablation Procedure RF Ablation Isthmus Other Equipment Time Practice Billing Associate Description Size Mfg Part Number Used/Scraped CATHETER, BIFURCATED 16:16 ANGIO-DYNAMICS FR 5 [id number] Used INFUSION BENEPHIT [id number] 14:46 ARGON/MAXXIM DRAPE, BRACHIAL REINFORCED * Used *[id number] 14:42 ARGON/MAXXIM DRAPE, BRACHIAL REINFORCED * Used *[id number] BIOSSesameaTER CATHETER, CELSIUS DS, 8MM, F [id number] 14:48 FR 7 Used INC. TYPE QUAD *[id number] 16:16 CORDIS/PACER SHEATH, FR9 EMI 11CM FR 9 [id number] Used [id number] 14:42 [employer] INDUSTRIES PACK, CCL CUSTOM * Used *[id number] 14:42 [employer] PACER JERONIMO, LIMB * 2530 *[id number] Used 14:42 [employer] MEDICAL PACER SHEATH, FR8.5 MERIT 11CM FR 8.5 [id number] Used 14:42 [employer] MEDICAL PACER SHEATH, FR8.5 MERIT 11CM FR 8.5 [id number] Used 14:42 [employer] MEDICAL PACER SHEATH, FR8.5 MERIT 11CM FR 8.5 [id number] Used PROBE COVER, STERILE [id number] 14:42 Hole 19 MEDICAL * Used ULTRASOUND W/ GEL *[id number] 14:42 [employer] MEDICAL BLANKET,WARM AIR CCL * Used *[id number] 982520 14:44 [employer] MED[employer] CATHETER, FR7 DUODECA FR 7 Used *[id number] [id number] 14:45 [employer] MED[employer] CATHETER, CRD-2, QUAD FR 5 Used *[id number] 14:45 [employer] MEDICAL CATHETER, JSN, QUAD FR 5 Used *[id number] 14:42 [employer] MEDICAL ELECTRODE KIT, MARLINE X SURFACE * [id number] Used 15:53 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 Diabetes Disease Disease Disease No Yes No No No History: Risk Factors Selection Items Hyperlipidemia History: Other Disease Selection Items CAD HTN Labs Hgb (g/dl) Hct (%) RBC (MIL/MM3) WBC (l/cumm) Platelets (thousands) 11.60-17.00 35.00-51.00 4.00-5.90 4.00-11.00 150.00-450.00 14.6 43 4.6 11.7 163 Glucose (mg/dl) BUN (mg/dl) Creatinine (mg/dl) BUN:Creatinine (1:x) 74.00-106.00 7.00-18.00 0.50-1.30 10.00-20.00 116 13 0.7 18.6 Na (meq/l) K (meq/l) Cl (meq/l) CO2 (mmol/L) Ca (mg/dl) 136.00-145.00 3.50-5.10 98.00-107.00 21.00-32.00 8.50-10.10 142 3.6 109 28.1 7.5 INR (PTT:PT) 0.90-1.10 1 Medication Medication Total Dose (Bolus/Oral) Medication Total Dosage/Unit 1% XYLOCAINE 5 mL Medications (Bolus/Oral) Medication Time Given Dosage/Unit Administered By Reason 1% XYLOCAINE 03/07/2017 3:38:50 PM 5 mL Mauricio Faye For pain 5 mL 1% XYLOCAINE given in lab by Mauricio Faye via Subcutaneous. Ordered by Mauricio Faye. Reason: F or pain. right neck Medication (Drip) Medication Time Given Dosage/Unit Concentration/Unit Diluent (ml) Solution ISUPREL 03/07/2017 4:06:57 PM 5 mcg/min 1 mg 250 NaCl .9 5 mcg/min ISUPREL given in lab by Mauricio Faye in Left Forearm via Peripheral IV. Pump/Drip Flow = 7 5 ml/hr using NaCl .9 with a concentration of 1 mg in 250 ml. Ordered by Mauricio Faye. Reason: As per physicians verbal order. Initial Case Assessment Cardiovascular HR Rhythm NIBP Chest Pain 156 AF 134/92 0 Edema Present Skin color Skin None Normal Warm Dry Circulatory - Right Pulses Dorsalis Pedis 1 Scale (0,1,2,3,4,d) Circulatory - Left Pulses Dorsalis Pedis 1 Scale (0,1,2,3,4,d) Circulatory - Lower Extremities Color Lower Right Color Lower Left Normal Normal Neurological State Alert Moves all extremities Comment: confused knows name and Respiration - General Respiration Rate SpO2 (%) O2 (lpm) (B/min) 20 96 2 Final Case Assessment Cardiovascular HR Rhythm NIBP Chest Pain 69 sr 97/59 0 Edema Present Skin color Skin None Normal Warm Dry Circulatory - Right Pulses Dorsalis Pedis 1 Scale (0,1,2,3,4,d) Circulatory - Left Pulses Dorsalis Pedis 1 Scale (0,1,2,3,4,d) Circulatory - Lower Extremities Color Lower Right Color Lower Left Normal Normal Neurological State Alert Moves all extremities Comment: confused as previously documented Respiration - General Respiration Rate SpO2 (%) O2 (lpm) (B/min) 16 97 6 Chronological Log Time Study Chronological Log 14:57:41 Patient arrived via Bed. 14:57:42 Patient Name, D.O.B, / Armband Verified By R.N. 14:57:43 Consent signed by the physician and the patient and verified by the Tool Shaper Setup Operator staff. 14:57:44 Pre-op and post- op instructions given; patient acknowledges understanding of instructions. 14:57:45 Verbal Stimulation=2 Physical Stimulation=2 Airway=2 Respiration=2 TOTAL=8. (0=absent, 1=li mited, 2=present) 14:57:50 Anesthesia at bedside. Assumes care of patient. Gasper LAMB 14:57:54 Patient has been NPO for More than 6Hrs. 14:57:56 Skin Breakdown- 14:57:58 Patient Warmer Placed on the Table. 15:02:56 Disposable Defibrillator Pads Placed On Patient. 15:03:00 Matt Prominences Protected 15:03:06 A # 18 IV was noted in the Forearm (right). Grade = 0 0.9ns kvo Cardizem gtt 15cc/hr 15:03:40 A # 20 IV was noted in the Forearm (left). Grade = 0 Heparin 1100 units/hr gtt 15:04:23 A # 20 IV was noted in the Forearm (left). Grade = 0 09ns w 20mEq KCL @ 100cc/hr, Amiodaron e gtt @ 17cc/hr 15:04:38 History and physical on the chart. Assessment: Initial Case, NZ=896 BPM, Rhythm=AF, LUII=655/92 mmhg, Chest Pain=0, Edema=None, Color=Normal, Skin = Warm, Dry Right Pulses: Quincy Ped=1 Left Pulses: Quincy Ped=1 15:08:11 Lower Right Extremities: Color=Normal Lower Left Extremities: Color=Normal Neurological: State=Alert, TOURE, Comment=confused knows name and Respiration: Resp=20 B/min, SpO2=96 %, O2=2 lpm 15:10:20 Table restraints applied according to hospital policy 15:17:15 Right groin prepped with 2% chlorhexidine, and with a 3 min. waiting time. 15:17:19 Left groin prepped with 2% chlorhexidine, and with a 3 min. waiting time. Time Out. Correct patient, procedure, procedure equipment, site and side verified with physicia n present. Time 15:24:28 concurred by MD, individual staff and LOTTERIES AGENT. Time Out #2 - Consents verified, patient in correct position, all results are labled and displa yed, safety precautions 15:24:34 taken, antibiotics administered. Time out concurred by MD, individual staff and LOTTERIES AGENT in procedu re 15:24:42 Case Start 15:24:46 KAREN begun at bedside. 15:29:41 KAREN completed. 15:38:25 Vascular access was obtained in the Fem Vein (right). 15:38:36 Vascular access was obtained in the Fem Vein (right). 5 mL 1% XYLOCAINE given in lab by Mauricio Faye via Subcutaneous. Ordered by Mauricio Faye. Kelley son: For pain. 15:38:50 right neck 15:39:10 Vascular access was obtained in the Jugular Vein (right). 15:40:53 A SHEATH, FR8.5 MERIT 11CM FR 8.5 was advanced into the Fem Vein (right) using the Percutan eous technique. 15:41:05 A SHEATH, FR8.5 MERIT 11CM FR 8.5 was advanced into the Fem Vein (right) using the Percutan eous technique. 15:41:10 A SHEATH, FR8.5 MERIT 11CM FR 8.5 was advanced into the Jugular Vein (right) using the Perc utaneous technique. A CATHETER, FR7 DUODECA FR 7 was advanced vis Jugular Vein (right) and placed in the CS. Placem ent was visually 15:43:02 confirmed under fluoroscopy. 15:43:32 Reference ECG taken A CATHETER, JSN, QUAD FR 5 was advanced vis Fem Vein (right) and placed in the HIS. Placement w as visually 15:47:11 confirmed under fluoroscopy. A SHEATH, EPS, FR8 SAFL FR 8 was exchanged in the Fem Vein (right). This was necessary in order to accomodate a 15:52:30 larger catheter. 15:57:00 Mapping catheter removed. 15:58:50 RF Ablation of the Isthmus with a CATHETER, CELSIUS DS, 8MM, F TYPE QUAD FR 7. 16:03:30 Cardizem and Amiodarone IV dc'd 5 mcg/min ISUPREL given in lab by Mauricio Faye in Left Forearm via Peripheral IV. Pump/Drip Fl ow = 75 ml/hr using 16:06:57 NaCl .9 with a concentration of 1 mg in 250 ml. Ordered by Mauricio Faye. Reason: As per physic ians verbal order. 16:11:11 Ablation back on. 16:12:23 Isuprel gtt off. 16:14:22 Ablation off and catheter removed. A SHEATH, FR9 EMI 11CM FR 9 was exchanged in the Fem Vein (right). This was necessary in ord er to achieve 16:16:15 vascular hemostasis. 16:17:32 Catheter(s) removed without difficulty 16:21:28 Ablation procedure performed: Aflutter. 16:21:35 EP Procedure was performed. 16:21:40 PACU called. Spoke to Dany 16:22:20 Bedside Report will be given. 16:22:42 Sheaths removed; pressure applied to access sites. HH to right groin. DB to right jugular. 16:24:00 Case End 16:24:49 No case complications noted. 16:24:50 Cine recording checked. Assessment: Final Case, HR=69 BPM, Rhythm=sr, NIBP=97/59 mmhg, Chest Pain=0, Edema=None, Color =Normal, Skin = Warm, Dry Right Pulses: Quincy Ped=1 Left Pulses: Quincy Ped=1 16:25:19 Lower Right Extremities: Color=Normal Lower Left Extremities: Color=Normal Neurological: State=Alert, TOURE, Comment=confused as previously documented Respiration: Resp=16 B/min, SpO2=97 %, O2=6 lpm 16:33:43 IMCU called. Spoke to JEANNIE Bruner 16:34:10 Bedside Report will be given. 16:35:09 Sterile dressing applied to sites. Sites WNL. 16:43:00 Patient moved to stretcher 16:43:29 Defibrillator and ground pads removed. Skin intact. End Study - Contrast Media Used In Study Contrast Total Opened (mL) Total Used (mL) Total Wasted (mL) Unspecified 0 0 0 End Study - Maximum Contrast Load Max Contrast Load (mL) 532.1 End Study - Radiation Exposure Fluoro Time (minutes) 0.0 End Study - Patient Disposition Complications Transferred To Interventional Outcome No Telemetry Bed successful
--- NOTE | 2017-03-07 16:51 | HHI.PR ---
Subjective Remarks Patient seen us morning around 1pm. Says he feels all right. He is disoriented 3, however in good spirits. Son is at bedside. Reports patient without mental status change today. Objective Vital Signs Date Time Temp Pulse Resp B/P Pulse Ox O2 Delivery O2 Flow Rate FiO2 03/07/17 14:00 155 03/07/17 12:00 157 03/07/17 12:00 98.9 157 21 127/82 98 03/07/17 10:00 151 03/07/17 08:00 99.2 153 24 120/77 98 03/07/17 08:00 153 03/07/17 07:37 97 Nasal Cannula 2.00 03/07/17 06:00 152 03/07/17 04:00 149 03/07/17 04:00 98.7 149 20 94 03/07/17 02:30 152 03/07/17 02:15 152 03/07/17 02:01 153 03/07/17 02:00 153 03/07/17 01:45 152 03/07/17 01:30 152 03/07/17 01:15 152 03/07/17 01:00 150 03/07/17 00:46 147 03/07/17 00:31 146 03/07/17 00:15 146 03/07/17 00:01 146 03/07/17 00:00 146 03/07/17 00:00 98.3 146 20 114/83 95 03/06/17 22:14 97 Nasal Cannula 2.00 03/06/17 22:00 152 03/06/17 20:00 98.0 149 20 116/77 97 03/06/17 20:00 149 03/06/17 19:45 149 18 113/78 96 03/06/17 19:30 149 8 109/74 97 03/06/17 19:15 149 21 101/66 96 03/06/17 19:01 149 26 96 03/06/17 19:00 149 28 115/71 96 03/06/17 18:45 159 19 119/77 97 03/06/17 18:30 158 26 118/73 96 03/06/17 18:15 155 26 114/78 98 03/06/17 18:01 156 12 97 03/06/17 18:00 156 03/06/17 18:00 156 20 111/74 97 03/06/17 17:45 156 21 115/72 96 03/06/17 17:30 156 25 114/69 96 03/06/17 17:15 153 23 116/69 100 03/06/17 17:01 153 26 97 03/06/17 17:00 153 24 115/73 96 I/O 03/06/17 03/06/17 03/06/17 03/07/17 03/07/17 03/07/17 07:00 15:00 23:00 07:00 15:00 23:00 Intake Total 1025 ml 2305 ml 1104 ml 1472 ml Output Total 950 ml 850 ml 650 ml 1050 ml Balance 75 ml 1455 ml 454 ml 422 ml Intake Oral 0 ml IV Total 1025 ml 2305 ml 1104 ml 1472 ml Output Urine Total 950 ml 850 ml 650 ml 1050 ml # Bowel Movements 0 0 0 0 Result Diagram: 03/07/1731503/07/17315 Objective Remarks GENERAL: pt stting up in bed, soft restraints on . disoriented. good mood. SKIN: Warm and dry. HEAD: Normocephalic. EYES: No scleral icterus. No injection or drainage. NECK: Supple, trachea midline. No JVD. CARDIOVASCULAR: Tachycardic. Irregular rhythm. RESPIRATORY: Breath sounds equal bilaterally. No accessory muscle use. GASTROINTESTINAL: Abdomen soft, non-tender, nondistended. MUSCULOSKELETAL: No cyanosis, or edema. BACK: Nontender without obvious deformity. No CVA tenderness. A/P Assessment and Plan ======03/07/17 -Possible ablation as per cardiology. -Patient will need LP after heparin drip can be off. Discussed with infectious disease. -CK reviewed 3911, much improved from yesterday. 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 Appreciate neurology recommendations. EEG is abnormal. MRI brain atrophy and white matter disease as well and no acute infarct PT/OT/ST. -Continue on acyclovir as per infectious disease. -Patient will need LP after heparin drip can be off. Discussed with infectious disease. // Questionable seizure: Abnormal EEG. Appreciate neurology recommendations. Continue Dilantin. // Atrial fibrillation with RVR: Appreciate cardiology recommendations. -Difficult to manage. Resistant to diltiazem, amiodarone. -Possible ablation as per cardiology. Continues on heparin drip as per cardiology. Appreciate assistance. //Elevated troponin: Possible non-ST elevation VT. Appreciate cardiology recommendations. Not a candidate for cardiac catheterization at this time. Continue On heparin drip. //UTI: Urinalysis with 36 RBCs, 5 WBCs on admission. -Urine culture is negative. //Lactic acidosis: Resolved. //Sepsis: Patient has leukocytosis, lactic acidosis. Source of infection appears to be UTI. WBCs are trending down. Lactic acidosis has resolved. //Acute kidney injury: Resolved. Continue IV fluids. Monitor labs. //Rhabdomyolysis: CK improving. Continue IV fluids. //Urinary retention: continue with Luna catheter in place. // DVT prophylaxis: Continues on Heparin drip. This will need to be held prior to lumbar puncture. Sincere Cuellar MD Mar 07, 2017 16:51
[2017-03-08] VITALS (15 sets, daily range): BP systolic 124–153; BP diastolic 66–76; PULSE 71–96; RESP 20–33; TEMP 98.4–99.9; O2SAT 95–99
[2017-03-08] MEDS: SODIUM CHLOR 0.9% IV SCH ×3 (03:09→17:48)
[2017-03-08] MEDS: HEPARIN-D5W INJ 250 ML IV SCH ×2 (03:09→22:31)
[2017-03-08] MEDS: ACYCLOVIR IV SCH ×3 (03:09→17:48)
[2017-03-08] MEDS: NS + KCL 20 MEQ INJ 1,000 ML IV SCH ×3 (03:16→17:48)
[2017-03-08] MEDS: PHENYTOIN INJ 100 MG/2 ML VIAL IV SCH ×3 (05:27→20:00)
[2017-03-08 05:35] LABS: APTT (PATIENT) 41.2 SEC (24.3-30.1)
--- NOTE | 2017-03-08 05:39 | PD.CARD.PN ---
Subjective Subjective Remarks Asking when he can go home. Speech is clear but still confused Objective Medications Current Medications Medications (Trade) Dose Ordered Sig/Daniel Route Start Time Stop Time Status Last Admin (NS Flush) 2 ml UNSCH PRN IV FLUSH 03/03/17 22:15 03/07/17 08:13 (NS Flush) 2 ml BID IV FLUSH 03/04/17 09:00 03/07/17 21:27 (Narcan Inj) 0.4 mg UNSCH PRN IV 03/03/17 22:15 (D50w (Vial) Inj) 50 ml UNSCH PRN IV PUSH 03/03/17 22:15 Glucagon 1 mg 1 mg UNSCH PRN OTHER 03/03/17 22:15 Heparin Sodium/ Dextrose 250 ml @ 0 mls/hr TITRATE IV 03/03/17 23:00 03/08/17 03:09 (Rocephin Inj/NS Inj) 100 ml @ 200 mls/hr Q12H IV 03/04/17 09:00 03/07/17 21:27 (Aspirin Chew) 81 mg DAILY PO 03/04/17 09:00 03/07/17 08:11 (Lopressor) 12.5 mg Q12HR PO 03/04/17 09:00 03/07/17 21:27 (Pill Splitter) 1 ea UNSCH PRN OTHER 03/04/17 07:30 Phenytoin Sodium 100 mg 100 mg Q8H IV 03/04/17 20:00 03/08/17 05:27 Potassium Chloride/Sodium Chloride 1,000 ml @ 100 mls/hr Q10H IV 03/05/17 09:00 03/08/17 03:16 (Zovirax Inj/NS 250 ml Inj) 150 ml @ 150 mls/hr Q8H IV 03/05/17 17:00 03/08/17 03:09 (Lopressor Inj) 5 mg Q2H PRN IV 03/06/17 20:30 03/07/17 08:13 Atropine Sulfate 0.5 mg 0.5 mg UNSCH PRN IV 03/07/17 16:30 (NS 250 ml Inj) 250 ml @ 500 mls/hr ONCE PRN IV 03/07/17 16:30 03/08/17 16:29 (Reglan Inj) 10 mg Q4H PRN IV 03/07/17 16:30 (Zofran Inj) 4 mg Q4H PRN IV 03/07/17 16:30 Vital Signs / I&O Vital Signs Date Time Temp Pulse Resp B/P Pulse Ox O2 Delivery O2 Flow Rate FiO2 03/08/17 04:00 75 03/08/17 04:00 98.5 75 20 140/68 97 03/08/17 02:00 78 03/08/17 00:00 71 03/08/17 00:00 98.4 71 23 124/66 98 03/07/17 22:00 74 03/07/17 20:37 100 High Flow Nasal Cannula 2.00 03/07/17 20:00 74 03/07/17 20:00 98.5 74 21 104/65 97 03/07/17 18:00 71 03/07/17 17:00 66 03/07/17 17:00 99.1 66 20 100/59 96 03/07/17 14:00 155 03/07/17 12:00 157 03/07/17 12:00 98.9 157 21 127/82 98 03/07/17 10:00 151 03/07/17 08:00 99.2 153 24 120/77 98 03/07/17 08:00 153 03/07/17 07:37 97 Nasal Cannula 2.00 03/07/17 06:00 152 I/O 03/07/17 03/07/17 03/07/17 03/08/17 03/08/17 03/08/17 07:00 15:00 23:00 07:00 15:00 23:00 Intake Total 1104 ml 1472 ml 854 ml 909 ml Output Total 650 ml 1050 ml 600 ml 575 ml Balance 454 ml 422 ml 254 ml 334 ml Intake Oral 0 ml IV Total 1104 ml 1472 ml 854 ml 909 ml Output Urine Total 650 ml 1050 ml 600 ml 575 ml Stool Total 0 ml 0 ml Bladder Scan Volume Amount 680 ml # Bowel Movements 0 0 0 Physical Exam Alert, docile Chest clear anteriorly CV S1S2 RRR Abd soft Ext: no CCE Tele: SR since ablation Laboratory Laboratory Tests Test 03/07/17 03/08/17 07:44 04:58 Activated Partial 40.6 SEC 41.2 SEC Thromboplast Time Assessment and Plan Problem List: (1) Elevated troponin I level (2) Altered mental state Assessment and Plan: Seems a little better (3) Coronary artery disease Assessment and Plan: No angina (4) Atrial flutter Assessment and Plan: s/p Ablation Assessment and Plan OK to interrupt heparin tomorrow for lumbar puncture if still needed then resume anticoagulation 5 hours after with Eliquis 5mg bid PO. I will be on vacation, my colleagues will cover. Eben Rabago MD Mar 08, 2017 05:39
[2017-03-08 05:49] LABS: AUTOMATED NEUTROPHIL # 7.6 TH/MM3 (1.8-7.7); BASOPHIL % 0.2 % (0.0-2.0); EOSINOPHIL # 0.2 TH/MM3 (0-0.4); EOSINOPHIL % 1.9 % (0.0-4.0); HEMATOCRIT 38.5 % (39.0-51.0); HEMO FLAGS DIFF FINAL; LYMPH % 12.4 % (9.0-44.0); LYMPHOCYTE # 1.3 TH/MM3 (1.0-4.8); MEAN CELL VOLUME 94.6 FL (80.0-100.0); MEAN CORPUSCULAR HGB CONC 33.9 % (32.0-36.0); MONO % 9.9 % (0.0-8.0); NEUT % 75.6 % (16.0-70.0); PLATELET COUNT 124 TH/MM3 (150-450); RED BLOOD COUNT 4.08 MIL/MM3 (4.50-5.90); RED CELL DISTRIBUTION WIDTH 13.2 % (11.6-17.2); WHITE BLOOD COUNT 10.1 TH/MM3 (4.0-11.0)
[2017-03-08 05:54] LABS: POTASSIUM 3.2 MEQ/L (3.5-5.1)
--- NOTE | 2017-03-08 07:54 | CF ---
cc: NADINE FOUNTAIN M.D., JAMES H. DATE: 03/07/2017 DATE OF 1935. REFERRING PHYSICIAN Dr. Hima James CLINICAL INDICATION The patient is a 81-year-old gentleman with symptomatic atrial flutter with persistent tachycardia, thus the patient came in for KAREN prior to ablation. PROCEDURE IN DETAIL The patient was sedated by the anesthesiologist using MAC. Transesophageal probe was advanced to the distal part of the esophagus. Multiple views of KAREN were taken. The patient tolerated the procedure without any complication. FINDINGS With multiple views it is difficult to visualize the left atrial appendage. The best view is obtained by off angle view including a 60, 90, 135 degree view. Again, with multiple views there is no obvious thrombus in left atrium and left atrial appendage. The Doppler flow across the appendage showed the flow is low around 20. LV systolic function is mildly impaired in the setting of tachycardia. Mild AR with mild atherosclerosis with mild MR and trace TR. There is no significant atrial shunt. There is no significant atherosclerotic plaque on the descending aorta and aortic arch. CONCLUSION 1. No apparent thrombus in left atrium and left atrial appendage but left atrial appendage very difficult to visualize. With multiple views there is no other thrombus. 2. Mild LV systolic dysfunction in the setting of tachycardia. 3. Mild AR, MR and trace TR. PLAN We will proceed with ablation shortly afterwards. Thank you Dr. Fountain and Dr. James. MD LORAINE Zhong/CHALO /3:37 PM /7:58 AM MTDYordan
--- NOTE | 2017-03-08 07:56 | MA ---
cc: NADINE RABAGO M.D., JAMES H. OUNG, TWETHIDA MD DATE OF PROCEDURE March 07, 2017. DATE OF 1935 CLINICAL INDICATION The patient is a 81-year-old gentleman with symptomatic atrial flutter with persistent tachycardia. The patient does have recurrent atrial flutter with tachycardia despite multiple cardioversions and multiple drips including amiodarone and Cardizem drip. Thus the patient came in for a KAREN. So far the KAREN showed no evidence of thrombus and we will proceed with atrial flutter ablation. PROCEDURE IN DETAIL The patient was sedated by the anesthesiologist using MAC. The patient was prepped and draped in sterile fashion. The right IJ and the right femoral vein was accessed with the help of ultrasound guidance. So far we placed an 8-Estonian sheath in the right IJ and also we placed in the right femoral vein two 8 Estonian sheaths. Through the right IJ we placed Duo-Deca catheter in the RV and the CS and we did use VIOLET for mapping. We placed a quadripolar catheter in the RV via His. We did obtain the basic EP property. The patient has a atrial flutter with cycle length of 200 milliseconds with ventricular rate around 395-400 milliseconds. So far QRS is 82 milliseconds, QTC is 410 milliseconds, HV is 74 milliseconds. So far it is consistent with typical atrial flutter by CS activation sequence. We did VIOLET mapping. We did use Duo-Deca catheter to record the LA activity. Then we proceeded with atrial flutter ablation. The ablation was done using an 8-mm F8 [employer] Fr[employer]iseense ablation catheter. We did show linear lesions along the tricuspid isthmus. So far the atrial flutter stopped and terminated during ablation. So far we did consult the lesion lines along the isthmus line but directional block was achieved. So far the conduction time was around 181 milliseconds. The patient was put on isoproterenol 5 mcg and atrial flutter was not seen afterwards with CS burst pacing. We did CS burst pacing. So far we get AV Wenckebach at 370 milliseconds via Wenckebach more than 600 milliseconds. CS burst pacing up 200 milliseconds did not induce any atrial flutter on isoproterenol. We did have a small steam pop during ablation but so far the patient is hemodynamically stable. Post-ablation the patient has HV the same - 74 milliseconds, with AV Wenckebach 370 milliseconds. All sheaths were removed by manual pressure. The patient tolerated the procedure without any complication. CONCLUSION 1. Complete EP study with recording of CS activity. 2. Successful ablation of atrial flutter using Biosense Bueno 8-mm ablation catheter. 3. 3-D mapping on VIOLET. 4. Isuprel drug testing and program stimulation. ESTIMATED BLOOD LOSS About 10 cc. CONTRAST USED None. PLAN It would be a tough choice to consider anticoagulation given there is possible lumbar puncture. We are going to continue heparin drip at least for the next few days. If we have to do a lumbar puncture, we may start heparin for few hours and would consider anticoagulation including Coumadin. Thank you Dr. Rabago and Dr. James. MATI Morfin and Dr. Asael REEVES thank you MD LORAINE Zhong/CHALO /4:38 PM /7:59 AM MTDYordan
[2017-03-08] MEDS: METOPROLOL TARTRATE 25 MG TAB PO SCH ×2 (09:33→22:23)
[2017-03-08] MEDS: ASPIRIN 81 MG CHEW TAB PO SCH (09:33)
[2017-03-08] MEDS: cefTRIAXone INJ 1,000 MG in SODIUM CHLORIDE 0.9% INJ 100 ML IV SCH ×2 (09:34→22:23)
[2017-03-08] MEDS: SODIUM CHLORIDE 0.9% FLUSH 10 ML FLUSH IV FLUSH SCH ×2 (09:34→21:00)
[2017-03-08] MEDS: POTASSIUM CHLOR 10 MEQ PREMIX 100 ML IV SCH ×3 (11:17→13:14)
--- NOTE | 2017-03-08 13:10 | EKG ---
Date Performed: 03/08/2017 Time Performed: 06:50:00 PTAGE: 81 years EKG: Sinus rhythm POSSIBLE LEFT ATRIAL ENLARGEMENT LOW QRS VOLTAGE IN EXTREMITY LEADS BORDERLINE ECG PREVIOUS TRACING : 03/06/2017 07.23 compared with previous EKG atrial flutter with rapid ventr icular response is no longer present DOCTOR: Valentino Patiño Interpretating Date/Time 03/08/2017 13:08:25
--- NOTE | 2017-03-08 13:18 | HHI.PR ---
Review/Management Daily Summary 03/05 he is starting to talk but not much and not making much sense, staff reported some agitation and had to be restrained i saw him about 2 hours ago and just reviewed the mri brain which shows left more than right mesial temp lobe signal change possible encephalitis, afebrile start empiric acyclovir iv, unable to do LP as he is on heparin will likely need lp later on and would send autoimmune encephalitis pannel repeat eeg dilantin as is , level 17 03/07 awake and pleasant, aphasic and confused at times will follow simple commands cardio cath plans discussed with JEANNIE balderas continue neuro care as is possible LP afetr cardio stable and off blood thinner mri brain f/u tomorrow 03/08 alert but confused probably unchanged will do f/u mri brain and eeg hope to be able to do lp soon Subjective Subjective Comments confused Active Medications Current Medications Medications (Trade) Dose Ordered Sig/Daniel Route Start Time Stop Time Status Last Admin (NS Flush) 2 ml UNSCH PRN IV FLUSH 03/03/17 22:15 03/07/17 08:13 (NS Flush) 2 ml BID IV FLUSH 03/04/17 09:00 03/08/17 09:34 (Narcan Inj) 0.4 mg UNSCH PRN IV 03/03/17 22:15 (D50w (Vial) Inj) 50 ml UNSCH PRN IV PUSH 03/03/17 22:15 Glucagon 1 mg 1 mg UNSCH PRN OTHER 03/03/17 22:15 Heparin Sodium/ Dextrose 250 ml @ 0 mls/hr TITRATE IV 03/03/17 23:00 03/08/17 03:09 (Rocephin Inj/NS Inj) 100 ml @ 200 mls/hr Q12H IV 03/04/17 09:00 03/08/17 09:34 (Aspirin Chew) 81 mg DAILY PO 03/04/17 09:00 03/08/17 09:33 (Lopressor) 12.5 mg Q12HR PO 03/04/17 09:00 03/08/17 09:33 (Pill Splitter) 1 ea UNSCH PRN OTHER 03/04/17 07:30 Phenytoin Sodium 100 mg 100 mg Q8H IV 03/04/17 20:00 03/08/17 13:13 Potassium Chloride/Sodium Chloride 1,000 ml @ 100 mls/hr Q10H IV 03/05/17 09:00 03/08/17 07:26 (Zovirax Inj/NS 250 ml Inj) 150 ml @ 150 mls/hr Q8H IV 03/05/17 17:00 03/08/17 09:33 (Lopressor Inj) 5 mg Q2H PRN IV 03/06/17 20:30 03/07/17 08:13 Atropine Sulfate 0.5 mg 0.5 mg UNSCH PRN IV 03/07/17 16:30 (NS 250 ml Inj) 250 ml @ 500 mls/hr ONCE PRN IV 03/07/17 16:30 03/08/17 16:29 (Reglan Inj) 10 mg Q4H PRN IV 03/07/17 16:30 Ondansetron HCl 4 mg 4 mg Q4H PRN IV 03/07/17 16:30 03/08/17 09:33 (KCl 10 Meq Premix Inj) 100 ml @ 100 mls/hr Q1H IV 03/08/17 11:00 03/08/17 13:59 03/08/17 13:14 Allergies Allergies Coded Allergies UNOBTAINABLE (Unverified03/03/17) Exam I&O / VS 03/07/17 03/07/17 03/08/17 15:00 23:00 07:00 Intake Total 1472 ml 854 ml 909 ml Output Total 1050 ml 600 ml 575 ml Balance 422 ml 254 ml 334 ml Intake Oral 0 ml IV Total 1472 ml 854 ml 909 ml Output Urine Total 1050 ml 600 ml 575 ml Stool Total 0 ml 0 ml Bladder Scan Volume Amount 680 ml # Bowel Movements 0 0 Vital Signs Date Time Temp Pulse Resp B/P Pulse Ox O2 Delivery O2 Flow Rate FiO2 03/08/17 11:09 97 Nasal Cannula 2.00 03/08/17 10:00 91 03/08/17 08:00 85 03/08/17 08:00 99.2 85 32 153/70 96 03/08/17 06:00 80 03/08/17 04:00 75 03/08/17 04:00 98.5 75 20 140/68 97 03/08/17 02:00 78 03/08/17 00:00 71 03/08/17 00:00 98.4 71 23 124/66 98 03/07/17 22:00 74 03/07/17 20:37 100 High Flow Nasal Cannula 2.00 03/07/17 20:00 74 03/07/17 20:00 98.5 74 21 104/65 97 03/07/17 18:00 71 03/07/17 17:00 66 03/07/17 17:00 99.1 66 20 100/59 96 03/07/17 14:00 155 Objective Micro and Labs Laboratory Tests Test 03/08/17 04:58 White Blood Count 10.1 Red Blood Count 4.08 Hemoglobin 13.1 Hematocrit 38.5 Mean Corpuscular Volume 94.6 Mean Corpuscular Hemoglobin 32.0 Mean Corpuscular Hemoglobin 33.9 Concent Red Cell Distribution Width 13.2 Platelet Count 124 Mean Platelet Volume 9.6 Neutrophils (%) (Auto) 75.6 Lymphocytes (%) (Auto) 12.4 Monocytes (%) (Auto) 9.9 Eosinophils (%) (Auto) 1.9 Basophils (%) (Auto) 0.2 Neutrophils # (Auto) 7.6 Lymphocytes # (Auto) 1.3 Monocytes # (Auto) 1.0 Eosinophils # (Auto) 0.2 Basophils # (Auto) 0.0 CBC Comment DIFF FINAL Differential Comment Activated Partial 41.2 Thromboplast Time Sodium Level 141 Potassium Level 3.2 Chloride Level 108 Carbon Dioxide Level 24.0 Anion Gap 9 Blood Urea Nitrogen 12 Creatinine 0.77 Estimat Glomerular Filtration 97 Rate Random Glucose 82 Calcium Level 7.5 Phosphorus Level 2.1 Magnesium Level 2.0 Total Creatine Kinase 3406 Albumin 2.7 Date/Time Procedure Status Source Growth 03/06/17 15:15 Aerobic Blood Culture - Preliminary Resulted Blood Peripheral NO GROWTH IN 2 DAYS 03/06/17 15:15 Anaerobic Blood Culture - Preliminary Resulted Blood Peripheral NO GROWTH IN 2 DAYS 03/03/17 21:00 Urine Culture - Final Complete Urine Catheterized Urine NO GROWTH IN 48 HOURS. John Campos MD Mar 08, 2017 13:18
[2017-03-08 13:24] LABS: CKMB 9.8 NG/ML (0.5-3.6)
[2017-03-08] MEDS ORDERED: LORazepam 2 MG/ML VIAL IV SCH (14:00)
[2017-03-08] MEDS ORDERED: GADODIAMIDE PF 287 MG/ML 5 ML VIAL (for RAD MRI) IV ONE (16:16)
--- NOTE | 2017-03-08 16:43 | RADRPT ---
EXAM DATE/TIME: 03/08/2017 15:54 This report includes an Addendum and supersedes previous reports for this exam. [facility] COMPARISON: No previous studies available for comparison. INDICATIONS : Encephalitis. Temporal lobe encephalitis. CONTRAST: 15 cc Omniscan (gadodiamide) IV MEDICAL HISTORY : Myocardial infarction. Hypertension. CVA. SURGICAL HISTORY : CABG ENCOUNTER: Subsequent ACUITY: 1 day PAIN SCORE: 3/10 LOCATION: cranial TECHNIQUE: Multiplanar, multisequence MRI of the brain was performed both prior to and following the administrat ion of paramagnetic contrast. FINDINGS: CEREBRUM: The ventricles and cortical sulci are widened. No evidence of midline shift, mass lesion, hemorrhage or acute infarction. No extraaxial fluid collections are seen. The pituitary gland and suprasellar cistern are normal in configuration. WHITE MATTER: There are focal and confluent areas of signal abnormality seen throughout the cerebral white matter. POSTERIOR FOSSA: The cerebellum and brainstem are intact. The 4th ventricle is midline. The cerebellopontine angle is unremarkable. The cerebellar tonsils are normal in position. DIFFUSION IMAGING: No focal areas of restricted diffusion are seen. No evidence of acute infarction. EXTRACRANIAL: The visualized portions of the orbits and paranasal sinuses are unremarkable. POST-CONTRAST: No abnormal areas of parenchymal or dural enhancement. No evidence of blood-brain barrier breakdown. CONCLUSION: 1. No acute abnormality seen. 2. Atrophy. 3. Suspected small vessel ischemic change in the white matter. Jason Sanders MD on March 08, 2017 at 16:39 Board Certified Radiologist. This report was verified electronically. ADDENDUM: COMPARISON: MRI BRAIN W/O CONTRAST, March 04, 2017, 13:32. On comparison with the current examination of 03/08/2017 to the prior study of 03/04/2017, there continu es to be some mild increased signal in the left medial temporal lobe without significant change checo red to the study of 03/04/2017. Otherwise, no other new or significant changes are demonstrated. These findings were discussed by telephone with the ordering physician. Jwuan Kong MD on March 09, 2017 at 9:51 Board Certified Radiologist. This report was verified electronically.
--- NOTE | 2017-03-08 18:11 | HHI.IDPN ---
Subjective Subjective Remarks Delayed entry patient seen earlier in am. Mr. Hackett is a 81-year-old male with past medical history significant for PA, hyperlipidemia, coronary artery disease status post coronary artery bypass graft. Most of the history was obtained by review of medical records as patient is not oriented. Reportedly patient was found by her roommate on the ground for an undetermined period of time. The roommate reportedly left at 9 AM for work and when he returned at 6:30 PM he found the patient on floor. There is reported history of bowel and bladder incontinence and the patient was found. Per review of records it appears that patient had right-sided hemiparesis upon arrival to the ED. Per discussion with the ICU nurse it appears that neurological deficit seems to have improved over time except the confusion and agitation that persists. Patient underwent an MRI which showed evidence of encephalitis. Patient is currently in the ICU under the care of an site surveyor. Patient is in the ICU and currently not on any pressors, remains on room air. Cardiology Dr. Rabago is on the case and patient is being treated for Atrial Flutter with Amiodarone and reportedly patient continues to have sustained atrial flutter and there is a plan for cardioversion later today. Patient is on a heparin drip at the present time. Discussed the case with Dr. Rabago and if after cardioversion patient's heart rate normalizes then there is a possibility that he may be able to have a lumbar puncture tomorrow to workup for encephalitis. Neurology is also following the patient and there is report of the EEG that is abnormal suggestive seizure activity. The patient has been empirically started on IV acyclovir for encephalitis. Infectious disease is consulted for evaluation and management of possible infectious encephalitis. Overnight events reviewed Underwent Cardiac ablation Still confused, speech improved. No fevers No rash No diarrhea Antibiotics Acyclovir Lines Line sites with no e/o infection Past Medical History reviewed Allergies: Coded Allergies: UNOBTAINABLE (Unverified , 03/03/17) Objective . Vital Signs Date Time Temp Pulse Resp B/P Pulse Ox O2 Delivery O2 Flow Rate FiO2 03/08/17 18:00 94 03/08/17 16:00 85 03/08/17 14:00 83 03/08/17 12:00 84 03/08/17 12:00 98.7 84 33 142/76 97 03/08/17 11:09 97 Nasal Cannula 2.00 03/08/17 10:00 91 7/4/17 08:00 85 03/08/17 08:00 99.2 85 32 153/70 96 03/08/17 06:00 80 03/08/17 04:00 75 03/08/17 04:00 98.5 75 20 140/68 97 03/08/17 02:00 78 03/08/17 00:00 71 03/08/17 00:00 98.4 71 23 124/66 98 03/07/17 22:00 74 03/07/17 20:37 100 High Flow Nasal Cannula 2.00 03/07/17 20:00 74 03/07/17 20:00 98.5 74 21 104/65 97 03/07/17 03/07/17 03/08/17 15:00 23:00 07:00 Intake Total 1472 ml 854 ml 909 ml Output Total 1050 ml 600 ml 575 ml Balance 422 ml 254 ml 334 ml Intake Oral 0 ml IV Total 1472 ml 854 ml 909 ml Output Urine Total 1050 ml 600 ml 575 ml Stool Total 0 ml 0 ml Bladder Scan Volume Amount 680 ml # Bowel Movements 0 0 . Laboratory Tests Test 03/07/17 03/08/17 03:16 04:58 White Blood Count 11.8 TH/MM3 10.1 TH/MM3 Red Blood Count 4.67 MIL/MM3 4.08 MIL/MM3 Hemoglobin 14.6 GM/DL 13.1 GM/DL Hematocrit 43.5 % 38.5 % Mean Corpuscular Volume 93.2 FL 94.6 FL Mean Corpuscular Hemoglobin 31.2 PG 32.0 PG Mean Corpuscular Hemoglobin 33.5 % 33.9 % Concent Red Cell Distribution Width 13.1 % 13.2 % Platelet Count 163 TH/MM3 124 TH/MM3 Mean Platelet Volume 9.2 FL 9.6 FL Neutrophils (%) (Auto) 82.6 % 75.6 % Lymphocytes (%) (Auto) 8.4 % 12.4 % Monocytes (%) (Auto) 8.2 % 9.9 % Eosinophils (%) (Auto) 0.5 % 1.9 % Basophils (%) (Auto) 0.3 % 0.2 % Neutrophils # (Auto) 9.7 TH/MM3 7.6 TH/MM3 Lymphocytes # (Auto) 1.0 TH/MM3 1.3 TH/MM3 Monocytes # (Auto) 1.0 TH/MM3 1.0 TH/MM3 Eosinophils # (Auto) 0.1 TH/MM3 0.2 TH/MM3 Basophils # (Auto) 0.0 TH/MM3 0.0 TH/MM3 CBC Comment DIFF FINAL DIFF FINAL Differential Comment Laboratory Tests Test 03/07/17 03/08/17 03:16 04:58 Sodium Level 142 MEQ/L 141 MEQ/L Potassium Level 3.6 MEQ/L 3.2 MEQ/L Chloride Level 109 MEQ/L 108 MEQ/L Carbon Dioxide Level 28.1 MEQ/L 24.0 MEQ/L Anion Gap 5 MEQ/L 9 MEQ/L Blood Urea Nitrogen 13 MG/DL 12 MG/DL Creatinine 0.73 MG/DL 0.77 MG/DL Estimat Glomerular Filtration 104 ML/MIN 97 ML/MIN Rate Random Glucose 116 MG/DL 82 MG/DL Calcium Level 7.5 MG/DL 7.5 MG/DL Total Creatine Kinase 3911 U/L 3406 U/L Creatine Kinase MB 12.3 NG/ML 9.8 NG/ML Creatine Kinase MB % 0.3 % 0.3 % Phosphorus Level 2.1 MG/DL Magnesium Level 2.0 MG/DL Albumin 2.7 GM/DL Microbiology Date/Time Procedure Status Source Growth 03/06/17 14:55 Aerobic Blood Culture - Preliminary Resulted Blood Peripheral NO GROWTH IN 2 DAYS 03/06/17 14:55 Anaerobic Blood Culture - Preliminary Resulted Blood Peripheral NO GROWTH IN 2 DAYS 03/06/17 15:15 Aerobic Blood Culture - Preliminary Resulted Blood Peripheral NO GROWTH IN 2 DAYS 03/06/17 15:15 Anaerobic Blood Culture - Preliminary Resulted Blood Peripheral NO GROWTH IN 2 DAYS Imaging Last Impressions Brain MRI 03/08/17 0000 Signed Impressions: Service Date/Time: Wednesday, March 08, 2017 15:54 - CONCLUSION: 1. No acute abnormality seen. 2. Atrophy. 3. Suspected small vessel ischemic change in the white matter. Jason Sanders MD Head Magnetic Resonance Angiography 03/04/17 0000 Signed Impressions: Service Date/Time: Saturday, March 04, 2017 13:32 - CONCLUSION: 1. Moderate focal stenosis of the left TOP TILE DECORATOR origin and proximal left TOP TILE DECORATOR. 2. Otherwise, unremarkable MRA examination. No evidence for aneurysm, vascular malformation, or large vessel occlusion. Brandon Gama MD Head CT 03/03/[id number] Signed Impressions: Service Date/Time: February 19:37 - CONCLUSION: 1. Mild atrophy and patchy chronic small vessel ischemic change. 2. No acute hemorrhage or mass effect. Scott Thompson MD Chest X-Ray 03/03/171928 Signed Impressions: Service Date/Time: February 19:36 - CONCLUSION: No acute disease. Scott Thompson MD Carotid Artery Ultrasound 03/03/17 0000 Signed Impressions: Service Date/Time: , March 03, 2017 22:48 - CONCLUSION: No evidence for hemodynamically significant stenosis. Rossana Pike MD Aorta CTA 03/03/17 0000 Signed Impressions: Service Date/Time: , March 03, 2017 21:12 - CONCLUSION: 1. Atherosclerotic changes in the aorta with no aneurysm or dissection. 2. Coronary artery calcifications. 3. Status post median sternotomy for bypass grafting procedure. Scott Thompson MD Physical Exam GENERAL: This is a well-nourished, well-developed patient, in no apparent distress. SKIN: No rashes, ecchymoses or lesions. Cool and dry. Bruising noted at some places. HEAD: Atraumatic. Normocephalic. No temporal or scalp tenderness. EYES: Pupils equal round and reactive. Extraocular motions intact. No scleral icterus. No injection or drainage. ENT: Nose without bleeding, purulent drainage or septal hematoma. Throat without erythema, tonsillar hypertrophy or exudate. Uvula midline. Airway patent. NECK: Trachea midline. Supple, nontender, no meningeal signs. CARDIOVASCULAR: Heart sounds audible. RESPIRATORY: Clear to auscultation. Breath sounds equal bilaterally. No wheezes , rales, or rhonchi. GASTROINTESTINAL: Abdomen soft, non-tender, nondistended. MUSCULOSKELETAL: Extremities without clubbing, cyanosis, or edema. No joint tenderness, effusion, or edema noted. No calf tenderness. Negative Homans sign bilaterally. NEUROLOGICAL: Awake, alert. Not oriented to time place person. Kept repeating his name for every question I asked him. Psych could not be assessed IV line sites with no evidence of infection. Assessment & Plan Remarks SIRS possible sepsis present on admission. 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 Seizure ? new onset. CAD, s/p CABG Leucocytosis: infection, stress Elevated CK with mild ARF on admission: Possible mild rhabdo secondary to seizures. Atrial Flutter cardioversion Recs Continue Acyclovir IV Follow HSV in blood. Check PT/INR and aPTT in am. If normal will order LP in am. Hepatitis and HIV negative. Follow blood cultures Dw RN Follow cultures Follow clinically. Cher Lucas MD Mar 08, 2017 18:11
[2017-03-08 20:53] LABS: PROTHROMBIN TIME - PATIENT 11.2 SEC (9.8-11.6)
[2017-03-08] MEDS: PILL SPLITTER OTHER PRN (22:28)
--- NOTE | 2017-03-08 23:56 | HHI.PR ---
Subjective Remarks Patient seen this morning around 11:30 AM. Patient denies any pain. Says he feels all right. Discussed with son in room. No acute changes. Discussed with infectious disease. Plan for LP tomorrow. Objective Vital Signs Date Time Temp Pulse Resp B/P Pulse Ox O2 Delivery O2 Flow Rate FiO2 03/08/17 22:00 96 03/08/17 21:29 99.9 94 20 141/69 99 03/08/17 20:08 95 Nasal Cannula 2.00 03/08/17 20:00 96 03/08/17 18:00 94 03/08/17 16:00 98.9 84 20 139/76 97 03/08/17 16:00 85 03/08/17 14:00 83 03/08/17 12:00 84 03/08/17 12:00 98.7 84 33 142/76 97 03/08/17 11:09 97 Nasal Cannula 2.00 03/08/17 10:00 91 03/08/17 08:00 85 03/08/17 08:00 99.2 85 32 153/70 96 03/08/17 06:00 80 03/08/17 04:00 75 03/08/17 04:00 98.5 75 20 140/68 97 03/08/17 02:00 78 03/08/17 00:00 71 03/08/17 00:00 98.4 71 23 124/66 98 I/O 03/07/17 03/07/17 03/07/17 03/08/17 03/08/17 03/08/17 07:00 15:00 23:00 07:00 15:00 23:00 Intake Total 1104 ml 1472 ml 854 ml 909 ml 1422 ml 928 ml Output Total 650 ml 1050 ml 600 ml 575 ml 1200 ml 1000 ml Balance 454 ml 422 ml 254 ml 334 ml 222 ml -72 ml Intake Oral 0 ml 0 ml IV Total 1104 ml 1472 ml 854 ml 909 ml 1422 ml 928 ml Output Urine Total 650 ml 1050 ml 600 ml 575 ml 1200 ml 1000 ml Stool Total 0 ml 0 ml Bladder Scan Volume Amount 680 ml # Bowel Movements 0 0 0 0 Result Diagram: 03/08/17 0458 03/08/17 0458 Objective Remarks GENERAL: pt sitting up in bed, soft restraints on . disoriented. good mood.no appreciable change from yesterday SKIN: Warm and dry. HEAD: Normocephalic. EYES: No scleral icterus. No injection or drainage. NECK: Supple, trachea midline. No JVD. CARDIOVASCULAR: Tachycardic. Irregular rhythm. RESPIRATORY: Breath sounds equal bilaterally. No accessory muscle use. GASTROINTESTINAL: Abdomen soft, non-tender, nondistended. MUSCULOSKELETAL: No cyanosis, or edema. BACK: Nontender without obvious deformity. No CVA tenderness. A/P Assessment and Plan =========03/08/17 Patient doing well and cardiac ablation. Heart rate improved. Discussed with infectious disease. Plan for LP tomorrow.. Potassium 3.2. Low. Replace. Creatine kinase slow improvement 3406 from 3911 yesterday. 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 Appreciate neurology recommendations. EEG is abnormal. MRI brain atrophy and white matter disease as well and no acute infarct PT/OT/ST. -Continue on acyclovir as per infectious disease. -Patient will need LP after heparin drip can be off. Discussed with infectious disease. // Questionable seizure: Abnormal EEG. Appreciate neurology recommendations. Continue Dilantin. // Atrial fibrillation with RVR: Appreciate cardiology recommendations. -Difficult to manage. Resistant to diltiazem, amiodarone. -Possible ablation as per cardiology. Continues on heparin drip as per cardiology. Appreciate assistance. //Elevated troponin: Possible non-ST elevation GA. Appreciate cardiology recommendations. Not a candidate for cardiac catheterization at this time. Continue On heparin drip. //UTI: Urinalysis with 36 RBCs, 5 WBCs on admission. -Urine culture is negative. //Lactic acidosis: Resolved. //Sepsis: Patient has leukocytosis, lactic acidosis. Source of infection appears to be UTI. WBCs are trending down. Lactic acidosis has resolved. //Acute kidney injury: Resolved. Continue IV fluids. Monitor labs. //Rhabdomyolysis: CK improving. Continue IV fluids. //Urinary retention: continue with Luna catheter in place. // DVT prophylaxis: Continues on Heparin drip. This will need to be held prior to lumbar puncture. Sincere Cuellar MD Mar 08, 2017 23:56
[2017-03-09] VITALS (13 sets, daily range): BP systolic 121–172; BP diastolic 63–85; PULSE 80–96; RESP 15–28; TEMP 97.7–99.5; O2SAT 92–100
[2017-03-09] MEDS: PHENYTOIN INJ 100 MG/2 ML VIAL IV SCH ×3 (04:00→21:48)
[2017-03-09] MEDS: SODIUM CHLOR 0.9% IV SCH ×3 (05:22→16:31)
[2017-03-09] MEDS: ACYCLOVIR IV SCH ×3 (05:22→16:31)
[2017-03-09] MEDS: NS + KCL 20 MEQ INJ 1,000 ML IV SCH ×2 (05:23→17:35)
[2017-03-09 06:22] LABS: AUTOMATED NEUTROPHIL # 8.4 TH/MM3 (1.8-7.7); BASOPHIL % 0.2 % (0.0-2.0); EOSINOPHIL # 0.2 TH/MM3 (0-0.4); EOSINOPHIL % 1.9 % (0.0-4.0); HEMATOCRIT 34.7 % (39.0-51.0); HEMO FLAGS DIFF FINAL; LYMPH % 10.4 % (9.0-44.0); LYMPHOCYTE # 1.1 TH/MM3 (1.0-4.8); MEAN CELL VOLUME 93.1 FL (80.0-100.0); MEAN CORPUSCULAR HEMOGLOBIN 32.3 PG (27.0-34.0); MEAN CORPUSCULAR HGB CONC 34.7 % (32.0-36.0); NEUT % 77.5 % (16.0-70.0); PLATELET COUNT 129 TH/MM3 (150-450); RED BLOOD COUNT 3.73 MIL/MM3 (4.50-5.90); WHITE BLOOD COUNT 10.8 TH/MM3 (4.0-11.0)
[2017-03-09 06:32] LABS: APTT (PATIENT) 47.9 SEC (24.3-30.1)
[2017-03-09 06:53] LABS: MAGNESIUM 1.9 MG/DL (1.5-2.5); POTASSIUM 3.9 MEQ/L (3.5-5.1)
[2017-03-09 07:23] LABS: CKMB 2.4 NG/ML (0.5-3.6)
--- NOTE | 2017-03-09 08:54 | MP ---
cc: XU ROCA. DATE OF SURGERY 03/07/2017 DATE OF [address] Alicia Roca REFERRING PHYSICIANS Dr. Rabago and Dr. James. REASON FOR CONSULTATION Management of atrial flutter including option of ablation. HISTORY OF PRESENT ILLNESS Mr. Hackett is a 81-year-old gentleman presented to [place] with change in mental status and was found to be unresponsive. So far he has been admitted and he has been treated with antibiotics including acyclovir for possible encephalitis. The patient does have hypertension, hypercholesteremia, coronary artery disease status post bypass in 1998. But in the last two days the patient has developed atrial flutter with tachycardia with heart rate of 155 beats a minute. So far it is consistent with atrial flutter with 2:1 block. So far the patient has been treated with multiple drips including amiodarone and Cardene drip and has tried two cardioversions but atrial flutter recurred within minutes. So far the invasive procedure including lumbar puncture on hold given the patient's tachycardia status. Currently the patient on the heparin drip so no evidence of TIA or CVA. EEG showed some bilateral slowing. There is no evidence for TIA or CVA. Again the patient has tried multiple drips. So far the patient is still tachycardic with heart rate of 155 beats a minute. I did discuss in detail with Dr. Rabago and also his family. It is not an easy choice. Ideally would like to wait until his mental status improves before we consider ____ and atrial flutter ablation. But so far it is very difficult to control the rate and all the work has been on hold given tachycardic status. I also discussed with his son regarding all of the options. One of the options consider pacemaker plus A-V node ablation but given the patient's possible infection we would like to hold the pacer. I would like to hold off ablation if possible but so far the patient is still tachycardic. We tried multiple non invasive procedures without success and I discussed with his son the consensus is to go ahead with atrial flutter ablation, hopefully we can terminate the flutter ____ if his atrial fibrillation it would be a very tough choice. ___ would be a much longer procedure. But I will not know until I go in and try to target atrial fibrillation first. So far luckily he is hemodynamically stable. No evidence of systemic infection. His white count has come down to 11.8. So far no TIA or stroke. He is on a heparin drip. PAST MEDICAL HISTORY As above. SOCIAL HISTORY He does not smoke or drink a large amount of alcohol. REVIEW OF SYSTEMS I cannot get a detailed review from the patient. All of the review I am getting from his family. So far again he is Hemodynamically stable, no major other complaints except for tachycardia with heart rate of 155 beats. MEDICATIONS Include: 1. Amiodarone drip. 2. Cardene drip. 3. Acyclovir. 4. Aspirin 81 mg. 5. Metoprolol 12.7 mg b.i.d. 6. along with the Heparin drip. PHYSICAL EXAMINATION VITAL SIGNS: The patient has blood pressure of 100/60 with pulse in the 150, still persistent tachycardia. O2 sat is 98% on room air. HEENT: Normal oral examination. Pupils equal, round, reactive to light and accommodation. ENDOCRINE: There is no thyroid enlargement. LYMPHATICS: There is no lymphadenopathy. RESPIRATORY: Decreased breath sounds bilaterally but no crackles. CARDIOVASCULAR: Regular, tachycardic as noted. No loud murmurs. GASTROINTESTINAL: Active bowel sounds in all four quadrants. GENITOURINARY: Deferred. MUSCULOSKELETAL: All range of motion. SKIN: There is no ecchymosis. PSYCHIATRIC: The patient good mood but unable to answer all of the questions. NEUROLOGIC: There is no focal deficit but alert and oriented times one. LABORATORY DATA Tests so far, white blood cell count 11.8. So far EKG showed atrial flutter with tachycardia. ASSESSMENT 1. Atrial flutter with persistent tachycardia despite multiple cardioversions and multiple drips including amiodarone and Cardene drip. 2. Coronary artery disease status post bypass. 3. Hypertension, hypercholesteremia. 4. Change in mental status with possible encephalopathy. PLAN Again it is not an easy choice. Ideally we would like to wait until his mental status improved before we consider KAREN and ablation but so far we have tried multiple cardioversions and the drips without success. He is still tachycardic. I did discuss with the son his risk of complication is higher compared to that of the normal population given his change in mental status, possible encephalitis. His son has given consent for KAREN and ablation. We try to minimize anesthesia. We will try to finish the procedure as soon as possible. If we run into atrial fibrillation it is a tough choice, so far his son has given consent. Again we try to minimize sedation if possible and do the KAREN first to make sure there is no thrombus. Hopefully we can get rid of flutter, then he can proceed with invasive workup including lumbar puncture later on, but so far everything is on hold until we address the tachycardia. I will continue current antibiotics. Continue heparin drip for prevention of stroke. I would like to thank Dr. Rabago and Dr. James for letting me participate in the care of Mr. Hackett. MD LORAINE Zhong/KK /3:00 PM /8:57 AM
[2017-03-09] MEDS: ASPIRIN 81 MG CHEW TAB PO SCH (09:18)
[2017-03-09] MEDS: cefTRIAXone INJ 1,000 MG in SODIUM CHLORIDE 0.9% INJ 100 ML IV SCH ×2 (09:18→21:48)
[2017-03-09] MEDS: SODIUM CHLORIDE 0.9% FLUSH 10 ML FLUSH IV FLUSH SCH (09:18)
[2017-03-09] MEDS: METOPROLOL TARTRATE 25 MG TAB PO SCH ×2 (09:18→21:47)
--- NOTE | 2017-03-09 12:00 | HHI.PR ---
Review/Management Daily Summary 03/05 he is starting to talk but not much and not making much sense, staff reported some agitation and had to be restrained i saw him about 2 hours ago and just reviewed the mri brain which shows left more than right mesial temp lobe signal change possible encephalitis, afebrile start empiric acyclovir iv, unable to do LP as he is on heparin will likely need lp later on and would send autoimmune encephalitis pannel repeat eeg dilantin as is , level 17 03/07 awake and pleasant, aphasic and confused at times will follow simple commands cardio cath plans discussed with JEANNIE balderas continue neuro care as is possible LP afetr cardio stable and off blood thinner mri brain f/u tomorrow 03/08 alert but confused probably unchanged will do f/u mri brain and eeg hope to be able to do lp soon 03/09 awake and pleasantly confused, aphasia persists as there is some difficulty expressing simple matters follows simple commands well, move 4 limbs well mri brain repeat seen, sl improvement left medial temp lobe findings eeg in follow up LP today per staff Subjective Subjective Comments same confusional state per staff Active Medications Current Medications Medications (Trade) Dose Ordered Sig/Daniel Route Start Time Stop Time Status Last Admin (NS Flush) 2 ml UNSCH PRN IV FLUSH 03/03/17 22:15 03/07/17 08:13 (NS Flush) 2 ml BID IV FLUSH 03/04/17 09:00 03/09/17 09:18 (Narcan Inj) 0.4 mg UNSCH PRN IV 03/03/17 22:15 (D50w (Vial) Inj) 50 ml UNSCH PRN IV PUSH 03/03/17 22:15 Glucagon 1 mg 1 mg UNSCH PRN OTHER 03/03/17 22:15 Heparin Sodium/ Dextrose 250 ml @ 0 mls/hr TITRATE IV 03/03/17 23:00 03/08/17 22:31 (Rocephin Inj/NS Inj) 100 ml @ 200 mls/hr Q12H IV 03/04/17 09:00 03/09/17 09:18 (Aspirin Chew) 81 mg DAILY PO 03/04/17 09:00 03/09/17 09:18 (Lopressor) 12.5 mg Q12HR PO 03/04/17 09:00 03/09/17 09:18 (Pill Splitter) 1 ea UNSCH PRN OTHER 03/04/17 07:30 03/08/17 22:28 Phenytoin Sodium 100 mg 100 mg Q8H IV 03/04/17 20:00 03/09/17 04:00 Potassium Chloride/Sodium Chloride 1,000 ml @ 100 mls/hr Q10H IV 03/05/17 09:00 03/09/17 05:23 (Zovirax Inj/NS 250 ml Inj) 150 ml @ 150 mls/hr Q8H IV 03/05/17 17:00 03/09/17 09:17 (Lopressor Inj) 5 mg Q2H PRN IV 03/06/17 20:30 03/07/17 08:13 (Atropine Inj) 0.5 mg UNSCH PRN IV 03/07/17 16:30 (Reglan Inj) 10 mg Q4H PRN IV 03/07/17 16:30 (Zofran Inj) 4 mg Q4H PRN IV 03/07/17 16:30 03/08/17 09:33 Allergies Allergies Coded Allergies UNOBTAINABLE (Unverified03/03/17) Exam I&O / VS 03/08/17 03/08/17 03/09/17 15:00 23:00 07:00 Intake Total 1422 ml 928 ml 832 ml Output Total 1200 ml 1000 ml 1000 ml Balance 222 ml -72 ml -168 ml Intake Oral 0 ml IV Total 1422 ml 928 ml 832 ml Output Urine Total 1200 ml 1000 ml 1000 ml # Bowel Movements 0 1 Vital Signs Date Time Temp Pulse Resp B/P Pulse Ox O2 Delivery O2 Flow Rate FiO2 03/09/17 08:36 92 Nasal Cannula 2.00 03/09/17 06:00 83 03/09/17 04:00 96 03/09/17 04:00 85 03/09/17 04:00 99.0 85 23 92 03/09/17 02:00 91 03/09/17 00:00 99.5 80 27 121/63 100 03/08/17 22:00 96 03/08/17 21:29 99.9 94 20 141/69 99 03/08/17 20:08 95 Nasal Cannula 2.00 03/08/17 20:00 96 03/08/17 18:00 94 03/08/17 16:00 98.9 84 20 139/76 97 03/08/17 16:00 85 03/08/17 14:00 83 03/08/17 12:00 84 03/08/17 12:00 98.7 84 33 142/76 97 Objective Radiology Results Last 48 hours Impressions Brain MRI 03/08/17 0000 Signed Impressions: Service Date/Time: Wednesday, March 08, 2017 15:54 - CONCLUSION: 1. No acute abnormality seen. 2. Atrophy. 3. Suspected small vessel ischemic change in the white matter. Jason Sanders MD ADDENDUM: COMPARISON: MRI BRAIN W/ O CONTRAST, March 04, 2017, 13:32. On comparison with the current examination of 03/08/2017 to the prior study of 03/04/2017, there continues to be some mild increased signal in the left medial temporal lobe without significant change compared to the study of 03/04/2017. Otherwise, no other new or significant changes are demonstrated. These findings were discussed by telephone with the ordering physician. Juwan Kong MD Micro and Labs Laboratory Tests Test 03/08/17 03/09/17 20:35 05:18 Prothrombin Time 11.2 Prothromb Time International 1.0 Ratio White Blood Count 10.8 Red Blood Count 3.73 Hemoglobin 12.0 Hematocrit 34.7 Mean Corpuscular Volume 93.1 Mean Corpuscular Hemoglobin 32.3 Mean Corpuscular Hemoglobin 34.7 Concent Red Cell Distribution Width 13.0 Platelet Count 129 Mean Platelet Volume 9.7 Neutrophils (%) (Auto) 77.5 Lymphocytes (%) (Auto) 10.4 Monocytes (%) (Auto) 10.0 Eosinophils (%) (Auto) 1.9 Basophils (%) (Auto) 0.2 Neutrophils # (Auto) 8.4 Lymphocytes # (Auto) 1.1 Monocytes # (Auto) 1.1 Eosinophils # (Auto) 0.2 Basophils # (Auto) 0.0 CBC Comment DIFF FINAL Differential Comment Activated Partial 47.9 Thromboplast Time Sodium Level 141 Potassium Level 3.9 Chloride Level 106 Carbon Dioxide Level 30.0 Anion Gap 5 Blood Urea Nitrogen 8 Creatinine 0.81 Estimat Glomerular Filtration 92 Rate Random Glucose 79 Calcium Level 7.5 Phosphorus Level 2.2 Magnesium Level 1.9 Total Creatine Kinase 1587 Creatine Kinase MB 2.4 Creatine Kinase MB % 0.2 Albumin 2.3 Date/Time Procedure Status Source Growth 03/06/17 15:15 Aerobic Blood Culture - Preliminary Resulted Blood Peripheral NO GROWTH IN 3 DAYS 03/06/17 15:15 Anaerobic Blood Culture - Preliminary Resulted Blood Peripheral NO GROWTH IN 3 DAYS John Campos MD Mar 09, 2017 12:00
[2017-03-09 15:43] LABS: GROSS BLOOD TUBE #1 0 (0); GROSS BLOOD TUBE #2 0 (0); SUPERNATE COLOR TUBE #1 CLEAR (CLEAR); SUPERNATE COLOR TUBE #2 CLEAR (CLEAR); VOLUME TUBE # 1 1.9 ML; VOLUME TUBE # 2 1.7 ML; VOLUME TUBE # 3 1.6 ML; WBC TUBE #1 0 /MM3 (0-10)
[2017-03-09 15:44] LABS: CSF LYMPHOCYTES 0 %; CSF NEUTROPHILS 0 %; GROSS BLOOD TUBE #3 0 (0); SUPERNATE COLOR TUBE #3 CLEAR (CLEAR)
--- NOTE | 2017-03-09 16:03 | MG ---
cc: SILVIA SY M.D. Lab No: [id number] Date: 03/09/2017 Age: 81 Sex: M Race: DATE OF : [address] Campos In room 520. Repeat study. Photic stimulation awake, drowsy asleep. The patient answers questions but some are incorrect and takes a long time and is not sure. EEG 03/05 showed some sharps left more than right. MRI 03/05 shows atrophy, white matter disease, abnormal signal in the left medial temporal lobe. Found down, unable to stand or answer questions, history of bypass x4, alcohol, caffeine use, hyperlipidemia. MEDICATIONS Zofran, Lopressor, Acyclovir, Dilantin, Ceftriaxone, Aspirin, heparin. DESCRIPTION OF RECORD The patient has overall background slowing predominately 1-2 Hz. He starts snoring, there is a lot of artifact and develops at epoch 11 sharp waves ___ left hemisphere predominantly and centrally. However, predominately is moderate slowing. Photic stimulation without any significant driving response. IMPRESSION Abnormal EEG due to moderate slowing and sharp waves seen, predominantly at epoch 10, left more than right without active seizure-like events. Clinical correlation. Silvia Sy MD DF/TLL /3:39 PM /3:58 PM
[2017-03-09 16:30] LABS: HSV IGM 1 TITER ND TITER; HSV IGM II TITER ND TITER
--- NOTE | 2017-03-09 16:34 | RADRPT ---
EXAM DATE/TIME: 03/09/2017 13:50 [facility] COMPARISON: No previous studies available for comparison. INDICATIONS : Patient with altered mental status in need of lumbar puncture with opening pressures. MEDICAL HISTORY : 1.WI 2.Hyperlipidemia 3.CAD 4.CVA SURGICAL HISTORY : 1.CABG ENCOUNTER: Initial ACUITY: 1 week PAIN SCORE: 0/10 LUMBAR PUNCTURE TIME: 1404 hours FLUORO TIME: 4.5 minutes IMAGE SERIES: 0 ACCESS LEVEL: L3-4 OPENING PRESSURE: 12m of water CLOSING PRESSURE: Not requested. FLUID: 6 cc of clear CSF was collected and sent to the laboratory for analysis. PROCEDURE : 1. Fluoroscopic guided lumbar puncture. 2. Recording of opening pressure. The risks, benefits and alternatives to the procedure were explained and verbal and written consent w as obtained. The site was prepped in sterile fashion. Full sterile technique was used, including ca p, mask, sterile gloves and gown and a large sterile sheet. Hand hygiene and 2% chlorhexidine and/or betadine/alcohol prep was utilized per protocol for cutaneous antisepsis. The skin and subcutaneous tissues were infiltrated with local anesthetic solution. With fluoroscopic guidance the lumbar thecal sac was punctured at the above level described above and the opening pressure was recorded. The above described fluid was removed without difficulty. The patient tolerated the procedure well and there were no complications. CONCLUSION: Uncomplicated fluoroscopically guided lumbar puncture with pressures as above. Hector Kent MD on March 09, 2017 at 16:31 Board Certified Radiologist. This report was verified electronically.
[2017-03-09 23:53] LABS: HSV2 IGM IFA NEGATIVE (())
--- NOTE | 2017-03-09 23:55 | HHI.PR ---
Subjective Remarks patient seen today around 10 AM before lumbar puncture. Says he is feeling all right. Denies any pain. Objective Vital Signs Date Time Temp Pulse Resp B/P Pulse Ox O2 Delivery O2 Flow Rate FiO2 03/09/17 23:01 95 21 03/09/17 20:00 98.8 95 28 172/85 95 03/09/17 20:00 95 03/09/17 18:00 87 03/09/17 16:00 99.3 81 15 133/74 95 03/09/17 16:00 81 03/09/17 12:00 98.3 81 25 146/67 93 03/09/17 12:00 81 03/09/17 10:00 90 03/09/17 08:36 92 Nasal Cannula 2.00 03/09/17 08:00 97.7 81 26 142/67 95 03/09/17 08:00 81 03/09/17 06:00 83 03/09/17 04:00 96 03/09/17 04:00 85 03/09/17 04:00 99.0 85 23 92 03/09/17 02:00 91 03/09/17 00:00 99.5 80 27 121/63 100 I/O 03/08/17 03/08/17 03/08/17 03/09/17 03/09/17 03/09/17 06:59 14:59 22:59 06:59 14:59 22:59 Intake Total 909 ml 1422 ml 928 ml 832 ml 1225 ml 1394 ml Output Total 575 ml 1200 ml 1000 ml 1000 ml 175 ml 1650 ml Balance 334 ml 222 ml -72 ml -168 ml 1050 ml -256 ml Intake Oral 0 ml 100 ml 450 ml IV Total 909 ml 1422 ml 928 ml 832 ml 1125 ml 944 ml Output Urine Total 575 ml 1200 ml 1000 ml 1000 ml 175 ml 1650 ml Stool Total 0 ml Bladder Scan Volume Amount 680 ml # Bowel Movements 0 1 0 Result Diagram: 03/09/1751703/09/17517 Objective Remarks GENERAL: pt sitting up in bed, soft restraints on . disoriented. good mood.again, exam with no appreciable change from yesterday. SKIN: Warm and dry. HEAD: Normocephalic. EYES: No scleral icterus. No injection or drainage. NECK: Supple, trachea midline. No JVD. CARDIOVASCULAR: Tachycardic. Irregular rhythm. RESPIRATORY: Breath sounds equal bilaterally. No accessory muscle use. GASTROINTESTINAL: Abdomen soft, non-tender, nondistended. MUSCULOSKELETAL: No cyanosis, or edema. BACK: Nontender without obvious deformity. No CVA tenderness. A/P Assessment and Plan =========03/09/17 heart rate stable. Lumbar puncture results pending. Heparin drip stopped this morning. Can restart tomorrow. Creatine kinase much improved 1500. 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 Appreciate neurology recommendations. EEG is abnormal. MRI brain atrophy and white matter disease as well and no acute infarct PT/OT/ST. -Continue on acyclovir as per infectious disease. -Patient will need LP after heparin drip can be off. Discussed with infectious disease. // Questionable seizure: Abnormal EEG. Appreciate neurology recommendations. Continue Dilantin. // Atrial fibrillation with RVR: Appreciate cardiology recommendations. -Difficult to manage. Resistant to diltiazem, amiodarone. -Possible ablation as per cardiology. Continues on heparin drip as per cardiology. Appreciate assistance. //Elevated troponin: Possible non-ST elevation RI. Appreciate cardiology recommendations. Not a candidate for cardiac catheterization at this time. Continue On heparin drip. //UTI: Urinalysis with 36 RBCs, 5 WBCs on admission. -Urine culture is negative. //Lactic acidosis: Resolved. //Sepsis: Patient has leukocytosis, lactic acidosis. Source of infection appears to be UTI. WBCs are trending down. Lactic acidosis has resolved. //Acute kidney injury: Resolved. Continue IV fluids. Monitor labs. //Rhabdomyolysis: CK improving. Continue IV fluids. //Urinary retention: continue with Luna catheter in place. // DVT prophylaxis: Continues on Heparin drip. This will need to be held prior to lumbar puncture. Sincere Cuellar MD Mar 09, 2017 23:55
[2017-03-10] VITALS (13 sets, daily range): BP systolic 126–151; BP diastolic 60–81; PULSE 71–95; RESP 16–24; TEMP 97.4–98.7; O2SAT 93–100
[2017-03-10] MEDS: ACYCLOVIR IV SCH ×3 (01:42→17:02)
[2017-03-10] MEDS: SODIUM CHLOR 0.9% IV SCH ×3 (01:42→17:02)
[2017-03-10] MEDS: NS + KCL 20 MEQ INJ 1,000 ML IV SCH ×2 (03:26→20:54)
[2017-03-10] MEDS: PHENYTOIN INJ 100 MG/2 ML VIAL IV SCH ×2 (03:26→12:55)
[2017-03-10] MEDS: cefTRIAXone INJ 1,000 MG in SODIUM CHLORIDE 0.9% INJ 100 ML IV SCH ×2 (08:12→20:54)
[2017-03-10] MEDS: METOPROLOL TARTRATE 25 MG TAB PO SCH ×2 (08:12→20:53)
[2017-03-10] MEDS: ASPIRIN 81 MG CHEW TAB PO SCH (08:12)
--- NOTE | 2017-03-10 09:42 | PD.CONS ---
[facility] Service Rehabilitation Medicine Consult Requested By Dr. James Reason for Consult Comprehensive rehabilitation evaluation. Primary Care Physician Unknown History of Present Illness Az Briceno is a 81 year old right hand dominant male admitted to [facility] 03/03/17 after found unresponsive by roommate with right hemiparesis and bowel and bladder incontinence. HEad CT showed mild atrophy, patchy chronic small vessel ischemic changes. He was noted to have NSTEMI and atrial fibrillation with RVR. Started on Heparin IV. MRI of the brain 03/08/17 showed atrophy, suspected small vessel changes white matter. Neurology noted left grater than right mesial temporal lobe signal increase and started IV Acyclovir for possible encephalitis, He has undergone LP. EEG 03/09/17 abnormal with moderate slowing and sharp waves. Review of Systems Constitutional: COMPLAINS OF: Fatigue Eyes: DENIES: Diplopia Ears, nose, mouth, throat: DENIES: Hearing loss Respiratory: DENIES: Shortness of breath Cardiovascular: DENIES: Chest pain Gastrointestinal: DENIES: Abdominal pain Genitourinary: COMPLAINS OF: Urinary incontinence (Luna in placve) Integumentary: DENIES: Pruritus Hematologic/lymphatic: DENIES: Bruising Neurologic: COMPLAINS OF: Speech Problems, DENIES: Headache, Localized weakness, Paresthesias Psychiatric: DENIES: Confusion Past Family Social History Allergies: Coded Allergies: UNOBTAINABLE (Unverified , 03/03/17) Past Medical History OK CAD Hyperlipidemia Past Surgical History CABG X 4 Current Medications Current Medications Medications (Trade) Dose Ordered Sig/Daniel Route Start Time Stop Time Status Last Admin (NS Flush) 2 ml UNSCH PRN IV FLUSH 03/03/17 22:15 03/07/17 08:13 (NS Flush) 2 ml BID IV FLUSH 03/04/17 09:00 03/09/17 09:18 (Narcan Inj) 0.4 mg UNSCH PRN IV 03/03/17 22:15 (D50w (Vial) Inj) 50 ml UNSCH PRN IV PUSH 03/03/17 22:15 Glucagon 1 mg 1 mg UNSCH PRN OTHER 03/03/17 22:15 Heparin Sodium/ Dextrose 250 ml @ 0 mls/hr TITRATE IV 03/03/17 23:00 03/08/17 22:31 (Rocephin Inj/NS Inj) 100 ml @ 200 mls/hr Q12H IV 03/04/17 09:00 03/10/17 08:12 (Aspirin Chew) 81 mg DAILY PO 03/04/17 09:00 03/10/17 08:12 (Lopressor) 12.5 mg Q12HR PO 03/04/17 09:00 03/10/17 08:12 (Pill Splitter) 1 ea UNSCH PRN OTHER 03/04/17 07:30 03/08/17 22:28 Phenytoin Sodium 100 mg 100 mg Q8H IV 03/04/17 20:00 03/10/17 03:26 Potassium Chloride/Sodium Chloride 1,000 ml @ 100 mls/hr Q10H IV 03/05/17 09:00 03/10/17 03:26 (Zovirax Inj/NS 250 ml Inj) 150 ml @ 150 mls/hr Q8H IV 03/05/17 17:00 03/10/17 01:42 (Lopressor Inj) 5 mg Q2H PRN IV 03/06/17 20:30 03/07/17 08:13 (Atropine Inj) 0.5 mg UNSCH PRN IV 03/07/17 16:30 (Reglan Inj) 10 mg Q4H PRN IV 03/07/17 16:30 (Zofran Inj) 4 mg Q4H PRN IV 03/07/17 16:30 03/08/17 09:33 Family History Heart disease Social History Prior to admission lived in [place], [place]. Exam I&O / VS 03/09/17 03/09/17 03/10/17 14:59 22:59 06:59 Intake Total 1225 ml 1394 ml 1277 ml Output Total 175 ml 1650 ml 1400 ml Balance 1050 ml -256 ml -123 ml Intake Oral 100 ml 450 ml 100 ml IV Total 1125 ml 944 ml 1177 ml Output Urine Total 175 ml 1650 ml 1400 ml Bladder Scan Volume Amount 680 ml # Bowel Movements 0 Vital Signs Date Time Temp Pulse Resp B/P Pulse Ox O2 Delivery O2 Flow Rate FiO2 03/10/17 08:00 76 03/10/17 08:00 98.7 77 24 147/78 94 03/10/17 06:00 78 03/10/17 04:00 98.5 80 22 127/81 96 03/10/17 04:00 80 03/10/17 02:00 71 03/10/17 00:00 71 03/10/17 00:00 97.4 71 24 126/71 94 03/09/17 23:01 95 21 03/09/17 22:00 83 03/09/17 20:00 98.8 95 28 172/85 95 03/09/17 20:00 95 03/09/17 18:00 87 03/09/17 16:00 99.3 81 15 133/74 95 03/09/17 16:00 81 03/09/17 12:00 98.3 81 25 146/67 93 03/09/17 12:00 81 03/09/17 10:00 90 General: No acute distress Respiratory: Lungs CTA, Non-labored respirations, BS equal Gastrointestinal: Positive Bowel Sounds, Hyperactive Bowel Sounds, Non- Distended, Non-Tender Cardiovascular: Regular Rhythm Skin: Other (No rash noted) Musculoskeletal: Swelling (None in distal LE bilaterally) Psychiatric: Cooperative, Appropriate mood & affect Orientation: oriented to Self, oriented to Situation, disoriented to Place, disoriented to Time Neurologic: Cranial Nerves (Intact 2-12), Speech (Fulent and intelligible; word finding difficulty) Motor: Right Upper Extremity (PRoximal 3-/5; distal 4/5), Left Upper Extremity (5/5), Right Lower Extremity (4-4+/5), Left Lower Extremity (5/5) Sensory Decreased to light touch right UE otherwise intact DTRs: Normal Clonus: Negative Assessment and Plan Diagnosis: (1) Encephalopathy Assessment 1. Encephalopathy: CVA versus encephalitis 2. Atrial fibrillation with RVR 3. Sepsis 4. Impaired mobility and ADL's 5. Impaired cognition 6. Elevated troponin possible NSTEMI 7. CAD S/P Mi with history of CABG 8. Hyperlipidemia Plan 1. PT is mobilizing and now mod assist of 2 for transfers and balance being addressed to progress to gait. 2. OT addressing ADL's and min assist with grooming and mod assist with UE dressing 3. ST consulted for speech and cognitive eval and treat 4. Luna in place for retention would consider voiding trial when appropriate 5. SCD's for DVT prophylaxis in place. 6. Will benefit from inpatient ongoing rehabilitation at discharge given current functional status and case management making referrals. Will follow for level of carre. 7. Will follow while hospitalized and at discharge as appropriate Thank you for this consult Caryn Sanchez MD Mar 10, 2017 09:42
[2017-03-10 15:12] LABS: AUTOMATED NEUTROPHIL # 6.1 TH/MM3 (1.8-7.7); BASOPHIL % 0.3 % (0.0-2.0); EOSINOPHIL # 0.2 TH/MM3 (0-0.4); EOSINOPHIL % 2.5 % (0.0-4.0); HEMATOCRIT 37.6 % (39.0-51.0); HEMO FLAGS DIFF FINAL; LYMPH % 11.7 % (9.0-44.0); LYMPHOCYTE # 0.9 TH/MM3 (1.0-4.8); MEAN CELL VOLUME 93.7 FL (80.0-100.0); MEAN CORPUSCULAR HGB CONC 34.1 % (32.0-36.0); MONO % 9.4 % (0.0-8.0); NEUT % 76.1 % (16.0-70.0); PLATELET COUNT 155 TH/MM3 (150-450); RED BLOOD COUNT 4.01 MIL/MM3 (4.50-5.90); RED CELL DISTRIBUTION WIDTH 13.1 % (11.6-17.2)
[2017-03-10 15:25] LABS: ANION GAP 7 MEQ/L (5-15); AST (GOT) 58 U/L (15-37); BICARBONATE 28.5 MEQ/L (21.0-32.0); BLOOD UREA NITROGEN 12 MG/DL (7-18); CHLORIDE 107 MEQ/L (98-107); GLOMERULAR FILTRATION RATE 89 ML/MIN (>89); POTASSIUM 3.5 MEQ/L (3.5-5.1); SODIUM (NA) 142 MEQ/L (136-145)
[2017-03-10 15:32] LABS: ALKALINE PHOSPHATASE 70 U/L (45-117); ALT (GPT) 45 U/L (12-78); CREATINE KINASE 723 U/L (39-308); TOTAL BILIRUBIN ADULT 0.2 MG/DL (0.2-1.0)
[2017-03-10 15:51] LABS: CKMB 1.5 NG/ML (0.5-3.6)
--- NOTE | 2017-03-10 17:58 | HHI.PR ---
Review/Management Diagnosis left temporal lobe signal abnormality on MRI--possible encephalitis. possible cva h/o afib seizure Plan follow up CSF results eliquis to start tonight change dilantin to po Diagnosis/Plan: Daily Summary 03/05 he is starting to talk but not much and not making much sense, staff reported some agitation and had to be restrained i saw him about 2 hours ago and just reviewed the mri brain which shows left more than right mesial temp lobe signal change possible encephalitis, afebrile start empiric acyclovir iv, unable to do LP as he is on heparin will likely need lp later on and would send autoimmune encephalitis pannel repeat eeg dilantin as is , level 17 03/07 awake and pleasant, aphasic and confused at times will follow simple commands cardio cath plans discussed with JEANNIE balderas continue neuro care as is possible LP afetr cardio stable and off blood thinner mri brain f/u tomorrow 03/08 alert but confused probably unchanged will do f/u mri brain and eeg hope to be able to do lp soon 03/09 awake and pleasantly confused, aphasia persists as there is some difficulty expressing simple matters follows simple commands well, move 4 limbs well mri brain repeat seen, sl improvement left medial temp lobe findings eeg in follow up LP today per staff Subjective Subjective Comments No acute events reported had LP yesterday He feels weak in right arm Active Medications Current Medications Medications (Trade) Dose Ordered Sig/Daniel Route Start Time Stop Time Status Last Admin (NS Flush) 2 ml UNSCH PRN IV FLUSH 03/03/17 22:15 03/07/17 08:13 (NS Flush) 2 ml BID IV FLUSH 03/04/17 09:00 03/09/17 09:18 (Narcan Inj) 0.4 mg UNSCH PRN IV 03/03/17 22:15 (D50w (Vial) Inj) 50 ml UNSCH PRN IV PUSH 03/03/17 22:15 Glucagon 1 mg 1 mg UNSCH PRN OTHER 03/03/17 22:15 (Rocephin Inj/NS Inj) 100 ml @ 200 mls/hr Q12H IV 03/04/17 09:00 03/10/17 08:12 (Aspirin Chew) 81 mg DAILY PO 03/04/17 09:00 03/10/17 08:12 (Lopressor) 12.5 mg Q12HR PO 03/04/17 09:00 03/10/17 08:12 (Pill Splitter) 1 ea UNSCH PRN OTHER 03/04/17 07:30 03/08/17 22:28 Phenytoin Sodium 100 mg 100 mg Q8H IV 03/04/17 20:00 03/10/17 12:55 Potassium Chloride/Sodium Chloride 1,000 ml @ 100 mls/hr Q10H IV 03/05/17 09:00 03/10/17 03:26 (Zovirax Inj/NS 250 ml Inj) 150 ml @ 150 mls/hr Q8H IV 03/05/17 17:00 03/10/17 17:02 (Lopressor Inj) 5 mg Q2H PRN IV 03/06/17 20:30 03/07/17 08:13 (Atropine Inj) 0.5 mg UNSCH PRN IV 03/07/17 16:30 (Reglan Inj) 10 mg Q4H PRN IV 03/07/17 16:30 (Zofran Inj) 4 mg Q4H PRN IV 03/07/17 16:30 03/08/17 09:33 (Eliquis) 5 mg BID PO 03/10/17 21:00 Allergies Allergies Coded Allergies UNOBTAINABLE (Unverified03/03/17) Exam I&O / VS 03/09/17 03/09/17 03/10/17 15:00 23:00 07:00 Intake Total 1225 ml 1394 ml 1277 ml Output Total 175 ml 1650 ml 1400 ml Balance 1050 ml -256 ml -123 ml Intake Oral 100 ml 450 ml 100 ml IV Total 1125 ml 944 ml 1177 ml Output Urine Total 175 ml 1650 ml 1400 ml Bladder Scan Volume Amount 680 ml # Bowel Movements 0 Vital Signs Date Time Temp Pulse Resp B/P Pulse Ox O2 Delivery O2 Flow Rate FiO2 03/10/17 16:00 84 03/10/17 16:00 98.6 84 16 126/60 97 03/10/17 14:21 80 03/10/17 12:00 98.5 80 20 130/77 100 03/10/17 12:00 80 03/10/17 10:00 82 03/10/17 08:00 76 03/10/17 08:00 98.7 77 24 147/78 94 03/10/17 06:00 78 03/10/17 04:00 98.5 80 22 127/81 96 03/10/17 04:00 80 03/10/17 02:00 71 03/10/17 00:00 71 03/10/17 00:00 97.4 71 24 126/71 94 03/09/17 23:01 95 21 03/09/17 22:00 83 03/09/17 20:00 98.8 95 28 172/85 95 03/09/17 20:00 95 03/09/17 18:00 87 Respiratory: Lungs CTA, Non-labored respirations, BS equal Cardiology: Regular Rhythm Musculoskeletal: Swelling (None in distal LE bilaterally) Exam Comments alert speech normal Cn intact motor 5/5 BUE except 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 diminished fine motor rue 5/5 ble Objective Micro and Labs Laboratory Tests Test 03/10/17 03/10/17 04:46 14:43 Activated Partial 47.0 Thromboplast Time White Blood Count 8.0 Red Blood Count 4.01 Hemoglobin 12.8 Hematocrit 37.6 Mean Corpuscular Volume 93.7 Mean Corpuscular Hemoglobin 32.0 Mean Corpuscular Hemoglobin 34.1 Concent Red Cell Distribution Width 13.1 Platelet Count 155 Mean Platelet Volume 8.9 Neutrophils (%) (Auto) 76.1 Lymphocytes (%) (Auto) 11.7 Monocytes (%) (Auto) 9.4 Eosinophils (%) (Auto) 2.5 Basophils (%) (Auto) 0.3 Neutrophils # (Auto) 6.1 Lymphocytes # (Auto) 0.9 Monocytes # (Auto) 0.8 Eosinophils # (Auto) 0.2 Basophils # (Auto) 0.0 CBC Comment DIFF FINAL Differential Comment Sodium Level 142 Potassium Level 3.5 Chloride Level 107 Carbon Dioxide Level 28.5 Anion Gap 7 Blood Urea Nitrogen 12 Creatinine 0.83 Estimat Glomerular Filtration 89 Rate Random Glucose 113 Calcium Level 7.7 Total Bilirubin 0.2 Aspartate Amino Transf 58 (AST/SGOT) Alanine Aminotransferase 45 (ALT/SGPT) Alkaline Phosphatase 70 Total Creatine Kinase 723 Creatine Kinase MB 1.5 Creatine Kinase MB % 0.2 Total Protein 6.1 Albumin 2.2 Date/Time Procedure Status Source Growth 03/09/17 14:04 Gram Stain - Final Resulted Cerebral Spinal Fluid Lumbar Puncture 03/09/17 14:04 CSF Culture - Preliminary Resulted Cerebral Spinal Fluid Lumbar Puncture NO GROWTH IN 24 HOURS. 03/09/17 14:04 Fungal Smear - Final Resulted Cerebral Spinal Fluid Lumbar Puncture NO FUNGAL ELEMENTS SEEN. 03/09/17 14:04 Fungal Culture Resulted Cerebral Spinal Fluid Lumbar Puncture Pending 03/09/17 08:07 Fungal Smear Received Cerebral Spinal Fluid Lumbar Puncture Pending 03/09/17 08:07 Fungal Culture Received Cerebral Spinal Fluid Lumbar Puncture Pending 03/06/17 15:15 Aerobic Blood Culture - Preliminary Resulted Blood Peripheral NO GROWTH IN 4 DAYS 03/06/17 15:15 Anaerobic Blood Culture - Preliminary Resulted Blood Peripheral NO GROWTH IN 4 DAYS Zachary Vizcarra PhD Mar 10, 2017 17:58
[2017-03-10] MEDS: PHENYTOIN SODIUM 100 MG CAP PO SCH (20:53)
[2017-03-10] MEDS: APIXABAN 5 MG TABLET PO SCH (20:53)
[2017-03-10] MEDS: SODIUM CHLORIDE 0.9% FLUSH 10 ML FLUSH IV FLUSH SCH (20:54)
--- NOTE | 2017-03-10 22:49 | HHI.PR ---
Subjective Remarks patient seen today around 11 AM. No acute changes. Denies any pain. Objective Vital Signs Date Time Temp Pulse Resp B/P Pulse Ox O2 Delivery O2 Flow Rate FiO2 03/10/17 21:42 95 21 03/10/17 18:00 95 03/10/17 16:00 84 03/10/17 16:00 98.6 84 16 126/60 97 03/10/17 14:21 80 03/10/17 12:00 98.5 80 20 130/77 100 03/10/17 12:00 80 03/10/17 10:00 82 03/10/17 08:00 76 03/10/17 08:00 98.7 77 24 147/78 94 03/10/17 06:00 78 03/10/17 04:00 98.5 80 22 127/81 96 03/10/17 04:00 80 03/10/17 02:00 71 03/10/17 00:00 71 03/10/17 00:00 97.4 71 24 126/71 94 03/09/17 23:01 95 21 I/O 03/09/17 03/09/17 03/09/17 03/10/17 03/10/17 03/10/17 07:00 15:00 23:00 07:00 15:00 23:00 Intake Total 832 ml 1225 ml 1394 ml 1277 ml 1443 ml 320 ml Output Total 1000 ml 175 ml 1650 ml 1400 ml 1650 ml Balance -168 ml 1050 ml -256 ml -123 ml -207 ml 320 ml Intake Oral 100 ml 450 ml 100 ml 480 ml 320 ml IV Total 832 ml 1125 ml 944 ml 1177 ml 963 ml Output Urine Total 1000 ml 175 ml 1650 ml 1400 ml 1650 ml Bladder Scan Volume Amount 680 ml 680 ml # Bowel Movements 1 0 Result Diagram: 03/10/17 1443 03/10/17 1443 Objective Remarks GENERAL: pt sitting up in bed, soft restraints on . disoriented. good mood.again. oriented to place. Slight improvement. SKIN: Warm and dry. HEAD: Normocephalic. EYES: No scleral icterus. No injection or drainage. NECK: Supple, trachea midline. No JVD. CARDIOVASCULAR: Tachycardic. Irregular rhythm. RESPIRATORY: Breath sounds equal bilaterally. No accessory muscle use. GASTROINTESTINAL: Abdomen soft, non-tender, nondistended. MUSCULOSKELETAL: No cyanosis, or edema. BACK: Nontender without obvious deformity. No CVA tenderness. A/P Assessment and Plan =========03/10/17 heart rate stable. - Lumbar puncture results reviewed with increased total protein, cultures pending. 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 Appreciate neurology recommendations. EEG is abnormal. MRI brain atrophy and white matter disease as well and no acute infarct PT/OT/ST. -Continue on acyclovir as per infectious disease. -Status post LP. Follow-up cultures. Continue antimicrobials as per infectious disease // Questionable seizure: Abnormal EEG. Appreciate neurology recommendations. Continue Dilantin. // Atrial fibrillation with RVR: Appreciate cardiology recommendations. -Difficult to manage. Resistant to diltiazem, amiodarone. -s/p ablation as per cardiology. On eliquis. Appreciate assistance. //Elevated troponin: Possible non-ST elevation CA. Appreciate cardiology recommendations. Not a candidate for cardiac catheterization at this time. Continue On heparin drip. //UTI: Urinalysis with 36 RBCs, 5 WBCs on admission. -Urine culture is negative. //Lactic acidosis: Resolved. //Sepsis: Patient has leukocytosis, lactic acidosis. Source of infection appears to be UTI. WBCs are trending down. Lactic acidosis has resolved. //Acute kidney injury: Resolved. Continue IV fluids. Monitor labs. //Rhabdomyolysis: CK improving. Continue IV fluids. //Urinary retention: continue with Luna catheter in place. // DVT prophylaxis: Continues on eliquis Sincere Cuellar MD Mar 10, 2017 22:49 Sincere Cuellar MD Mar 10, 2017 22:49
[2017-03-11] VITALS (10 sets, daily range): BP systolic 126–159; BP diastolic 59–94; PULSE 73–88; RESP 16–26; TEMP 98.1–99.3; O2SAT 93–97
[2017-03-11] MEDS: SODIUM CHLOR 0.9% IV SCH ×2 (01:00→09:10)
[2017-03-11] MEDS: ACYCLOVIR IV SCH ×2 (01:00→09:10)
[2017-03-11] MEDS: PHENYTOIN SODIUM 100 MG CAP PO SCH ×3 (05:19→21:16)
[2017-03-11 06:06] LABS: APTT (PATIENT) 30.3 SEC (24.3-30.1)
[2017-03-11] MEDS: NS + KCL 20 MEQ INJ 1,000 ML IV SCH ×2 (09:07→21:16)
[2017-03-11] MEDS: ASPIRIN 81 MG CHEW TAB PO SCH (09:09)
[2017-03-11] MEDS: cefTRIAXone INJ 1,000 MG in SODIUM CHLORIDE 0.9% INJ 100 ML IV SCH ×2 (09:09→21:16)
[2017-03-11] MEDS: METOPROLOL TARTRATE 25 MG TAB PO SCH ×2 (09:10→21:16)
[2017-03-11] MEDS: SODIUM CHLORIDE 0.9% FLUSH 10 ML FLUSH IV FLUSH SCH ×2 (09:10→21:17)
[2017-03-11] MEDS: APIXABAN 5 MG TABLET PO SCH ×2 (09:10→21:16)
[2017-03-11] MEDS: PILL SPLITTER OTHER PRN (09:14)
[2017-03-11 09:42] LABS: HSV 1,PCR Negative (Negative)
[2017-03-11 09:49] LABS: CF EBV DNA PCR RESULT Negative (Negative); CF EBV SPEC SOURCE CSF (())
--- NOTE | 2017-03-11 13:42 | HHI.IDPN ---
Subjective Subjective Remarks Delayed entry patient seen earlier in am. Mr. Hackett is a 81-year-old male with past medical history significant for ME, hyperlipidemia, coronary artery disease status post coronary artery bypass graft. Most of the history was obtained by review of medical records as patient is not oriented. Reportedly patient was found by her roommate on the ground for an undetermined period of time. The roommate reportedly left at 9 AM for work and when he returned at 6:30 PM he found the patient on floor. There is reported history of bowel and bladder incontinence and the patient was found. Per review of records it appears that patient had right-sided hemiparesis upon arrival to the ED. Per discussion with the ICU nurse it appears that neurological deficit seems to have improved over time except the confusion and agitation that persists. Patient underwent an MRI which showed evidence of encephalitis. Patient is currently in the ICU under the care of an water treatment specialist. Patient is in the ICU and currently not on any pressors, remains on room air. Cardiology Dr. Rabago is on the case and patient is being treated for Atrial Flutter with Amiodarone and reportedly patient continues to have sustained atrial flutter and there is a plan for cardioversion later today. Patient is on a heparin drip at the present time. Discussed the case with Dr. Rabago and if after cardioversion patient's heart rate normalizes then there is a possibility that he may be able to have a lumbar puncture tomorrow to workup for encephalitis. Neurology is also following the patient and there is report of the EEG that is abnormal suggestive seizure activity. The patient has been empirically started on IV acyclovir for encephalitis. Infectious disease is consulted for evaluation and management of possible infectious encephalitis. Overnight events reviewed speech improved. Oriented now. No fevers No rash No diarrhea Antibiotics Acyclovir Lines Line sites with no e/o infection Past Medical History reviewed Allergies: Coded Allergies: UNOBTAINABLE (Unverified , 03/03/17) Objective . Vital Signs Date Time Temp Pulse Resp B/P Pulse Ox O2 Delivery O2 Flow Rate FiO2 03/11/17 10:00 75 03/11/17 08:00 93 21 03/11/17 08:00 98.7 79 26 159/83 93 03/11/17 08:00 79 03/11/17 06:00 73 03/11/17 04:00 76 03/11/17 04:00 98.3 76 20 141/94 94 03/11/17 02:00 82 03/11/17 00:00 80 03/11/17 00:00 98.4 80 20 159/83 97 03/10/17 22:00 80 03/10/17 21:42 95 21 03/10/17 20:00 90 03/10/17 20:00 98.7 90 18 151/72 93 03/10/17 18:00 95 03/10/17 16:00 84 03/10/17 16:00 98.6 84 16 126/60 97 03/10/17 14:21 80 03/10/17 03/10/17 03/11/17 15:00 23:00 07:00 Intake Total 1443 ml 1114 ml 812 ml Output Total 1650 ml 1300 ml 2100 ml Balance -207 ml -186 ml -1288 ml Intake Oral 480 ml 440 ml 120 ml IV Total 963 ml 674 ml 692 ml Output Urine Total 1650 ml 1300 ml 2100 ml Bladder Scan Volume Amount 680 ml # Bowel Movements 0 . Laboratory Tests Test 03/10/17 14:43 White Blood Count 8.0 TH/MM3 Red Blood Count 4.01 MIL/MM3 Hemoglobin 12.8 GM/DL Hematocrit 37.6 % Mean Corpuscular Volume 93.7 FL Mean Corpuscular Hemoglobin 32.0 PG Mean Corpuscular Hemoglobin 34.1 % Concent Red Cell Distribution Width 13.1 % Platelet Count 155 TH/MM3 Mean Platelet Volume 8.9 FL Neutrophils (%) (Auto) 76.1 % Lymphocytes (%) (Auto) 11.7 % Monocytes (%) (Auto) 9.4 % Eosinophils (%) (Auto) 2.5 % Basophils (%) (Auto) 0.3 % Neutrophils # (Auto) 6.1 TH/MM3 Lymphocytes # (Auto) 0.9 TH/MM3 Monocytes # (Auto) 0.8 TH/MM3 Eosinophils # (Auto) 0.2 TH/MM3 Basophils # (Auto) 0.0 TH/MM3 CBC Comment DIFF FINAL Differential Comment Laboratory Tests Test 03/10/17 14:43 Sodium Level 142 MEQ/L Potassium Level 3.5 MEQ/L Chloride Level 107 MEQ/L Carbon Dioxide Level 28.5 MEQ/L Anion Gap 7 MEQ/L Blood Urea Nitrogen 12 MG/DL Creatinine 0.83 MG/DL Estimat Glomerular Filtration 89 ML/MIN Rate Random Glucose 113 MG/DL Calcium Level 7.7 MG/DL Total Bilirubin 0.2 MG/DL Aspartate Amino Transf 58 U/L (AST/SGOT) Alanine Aminotransferase 45 U/L (ALT/SGPT) Alkaline Phosphatase 70 U/L Total Creatine Kinase 723 U/L Creatine Kinase MB 1.5 NG/ML Creatine Kinase MB % 0.2 % Total Protein 6.1 GM/DL Albumin 2.2 GM/DL Microbiology Date/Time Procedure Status Source Growth 03/09/17 08:07 Fungal Smear Received Cerebral Spinal Fluid Lumbar Puncture Pending 03/09/17 08:07 Fungal Culture Received Cerebral Spinal Fluid Lumbar Puncture Pending 03/09/17 14:04 Gram Stain - Final Resulted Cerebral Spinal Fluid Lumbar Puncture 03/09/17 14:04 CSF Culture - Preliminary Resulted Cerebral Spinal Fluid Lumbar Puncture NO GROWTH IN 48 HOURS. 03/09/17 14:04 Fungal Smear - Final Resulted Cerebral Spinal Fluid Lumbar Puncture NO FUNGAL ELEMENTS SEEN. 03/09/17 14:04 Fungal Culture Resulted Cerebral Spinal Fluid Lumbar Puncture Pending Imaging Last Impressions Brain MRI 03/08/17 0000 Signed Impressions: Service Date/Time: Wednesday, March 08, 2017 15:54 - CONCLUSION: 1. No acute abnormality seen. 2. Atrophy. 3. Suspected small vessel ischemic change in the white matter. Jason Sanders MD Head Magnetic Resonance Angiography 03/04/17 0000 Signed Impressions: Service Date/Time: Saturday, March 04, 2017 13:32 - CONCLUSION: 1. Moderate focal stenosis of the left [employer] origin and proximal left [employer]INTER. 2. Otherwise, unremarkable MRA examination. No evidence for aneurysm, vascular malformation, or large vessel occlusion. Brandon Gama MD Head CT 03/03/171928 Signed Impressions: Service Date/Time: February 19:37 - CONCLUSION: 1. Mild atrophy and patchy chronic small vessel ischemic change. 2. No acute hemorrhage or mass effect. Sctot Thompson MD Chest X-Ray 03/03/171928 Signed Impressions: Service Date/Time: February 19:36 - CONCLUSION: No acute disease. Scott Thompson MD Carotid Artery Ultrasound 03/03/17 0000 Signed Impressions: Service Date/Time: February 22:48 - CONCLUSION: No evidence for hemodynamically significant stenosis. Rossana Pike MD Aorta CTA 03/03/17 0000 Signed Impressions: Service Date/Time: February 21:12 - CONCLUSION: 1. Atherosclerotic changes in the aorta with no aneurysm or dissection. 2. Coronary artery calcifications. 3. Status post median sternotomy for bypass grafting procedure. Scott Thompson MD Physical Exam GENERAL: This is a well-nourished, well-developed patient, in no apparent distress. SKIN: No rashes, ecchymoses or lesions. Cool and dry. Bruising noted at some places. HEAD: Atraumatic. Normocephalic. No temporal or scalp tenderness. EYES: Pupils equal round and reactive. Extraocular motions intact. No scleral icterus. No injection or drainage. ENT: Nose without bleeding, purulent drainage or septal hematoma. Throat without erythema, tonsillar hypertrophy or exudate. Uvula midline. Airway patent. NECK: Trachea midline. Supple, nontender, no meningeal signs. CARDIOVASCULAR: Heart sounds audible. RESPIRATORY: Clear to auscultation. Breath sounds equal bilaterally. No wheezes , rales, or rhonchi. GASTROINTESTINAL: Abdomen soft, non-tender, nondistended. MUSCULOSKELETAL: Extremities without clubbing, cyanosis, or edema. No joint tenderness, effusion, or edema noted. No calf tenderness. Negative Homans sign bilaterally. NEUROLOGICAL: Awake, alert. Not oriented to time place person. Kept repeating his name for every question I asked him. Psych could not be assessed IV line sites with no evidence of infection. Assessment & Plan Remarks SIRS possible sepsis present on admission. 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 Seizure ? new onset. CAD, s/p CABG Leucocytosis: infection, stress Elevated CK with mild ARF on admission: Possible mild rhabdo secondary to seizures. Atrial Flutter cardioversion Recs DC Acyclovir IV Follow other encephalitis tests. Hepatitis and HIV negative. Follow blood cultures Dw RN Follow cultures Follow clinically. Cher Lucas MD Mar 11, 2017 13:42
--- NOTE | 2017-03-11 18:28 | HHI.PR ---
Subjective Remarks Patient seen today around 2 PM. Says he feels well. Denies any chest pain or shortness of breath. Told me today that it is 2006, which indicates an improvement and orientation. Objective Vital Signs Date Time Temp Pulse Resp B/P Pulse Ox O2 Delivery O2 Flow Rate FiO2 03/11/17 16:00 77 03/11/17 16:00 99.3 77 16 128/77 97 03/11/17 14:00 88 03/11/17 12:00 98.8 80 18 126/59 94 03/11/17 12:00 80 03/11/17 10:00 75 03/11/17 08:00 93 21 03/11/17 08:00 98.7 79 26 159/83 93 03/11/17 08:00 79 03/11/17 06:00 73 03/11/17 04:00 76 03/11/17 04:00 98.3 76 20 141/94 94 03/11/17 02:00 82 03/11/17 00:00 80 03/11/17 00:00 98.4 80 20 159/83 97 03/10/17 22:00 80 03/10/17 21:42 95 21 03/10/17 20:00 90 03/10/17 20:00 98.7 90 18 151/72 93 I/O 03/10/17 03/10/17 03/10/17 03/11/17 03/11/17 03/11/17 07:00 15:00 23:00 07:00 15:00 23:00 Intake Total 1277 ml 1443 ml 1114 ml 812 ml 1054 ml Output Total 1400 ml 1650 ml 1300 ml 2100 ml 2025 ml Balance -123 ml -207 ml -186 ml -1288 ml -971 ml Intake Oral 100 ml 480 ml 440 ml 120 ml IV Total 1177 ml 963 ml 674 ml 692 ml 1054 ml Output Urine Total 1400 ml 1650 ml 1300 ml 2100 ml 2025 ml Bladder Scan Volume Amount 680 ml 680 ml # Bowel Movements 0 Result Diagram: 03/10/17 1443 03/10/17 1443 Objective Remarks GENERAL: pt sitting up in bed, soft restraints on . disoriented. good mood.a patient states that it is 2006, which is improvement from yesterday. SKIN: Warm and dry. HEAD: Normocephalic. EYES: No scleral icterus. No injection or drainage. NECK: Supple, trachea midline. No JVD. CARDIOVASCULAR: Tachycardic. Irregular rhythm. RESPIRATORY: Breath sounds equal bilaterally. No accessory muscle use. GASTROINTESTINAL: Abdomen soft, non-tender, nondistended. MUSCULOSKELETAL: No cyanosis, or edema. BACK: Nontender without obvious deformity. No CVA tenderness. A/P Assessment and Plan =========03/11/17 Vitals reviewed above and stable. ID has stopped antivirals. Follow-up culture results. 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 Appreciate neurology recommendations. EEG is abnormal. MRI brain atrophy and white matter disease as well and no acute infarct PT/OT/ST. -Continue on acyclovir as per infectious disease. -Status post LP. Follow-up cultures. Continue antimicrobials as per infectious disease // Questionable seizure: Abnormal EEG. Appreciate neurology recommendations. Continue Dilantin. // Atrial fibrillation with RVR: Appreciate cardiology recommendations. -Difficult to manage. Resistant to diltiazem, amiodarone. -s/p ablation as per cardiology. On eliquis. Appreciate assistance. //Elevated troponin: Possible non-ST elevation NC. Appreciate cardiology recommendations. Not a candidate for cardiac catheterization at this time. Continue On heparin drip. //UTI: Urinalysis with 36 RBCs, 5 WBCs on admission. -Urine culture is negative. //Lactic acidosis: Resolved. //Sepsis: Patient has leukocytosis, lactic acidosis. Source of infection appears to be UTI. WBCs are trending down. Lactic acidosis has resolved. //Acute kidney injury: Resolved. Continue IV fluids. Monitor labs. //Rhabdomyolysis: CK improving. Continue IV fluids. //Urinary retention: continue with Luna catheter in place. // DVT prophylaxis: Continues on eliquis Sincere Cuellar MD Mar 11, 2017 18:28
[2017-03-12] VITALS (7 sets, daily range): BP systolic 141–157; BP diastolic 68–79; PULSE 65–81; RESP 18–20; TEMP 98.7–99; O2SAT 93–97
[2017-03-12] MEDS: PHENYTOIN SODIUM 100 MG CAP PO SCH ×3 (05:26→20:14)
[2017-03-12 08:57] LABS: AUTOMATED NEUTROPHIL # 5.4 TH/MM3 (1.8-7.7); BASOPHIL % 0.4 % (0.0-2.0); EOSINOPHIL # 0.2 TH/MM3 (0-0.4); EOSINOPHIL % 2.9 % (0.0-4.0); HEMATOCRIT 40.4 % (39.0-51.0); HEMO FLAGS DIFF FINAL; LYMPH % 15.2 % (9.0-44.0); LYMPHOCYTE # 1.2 TH/MM3 (1.0-4.8); MEAN CELL VOLUME 93.9 FL (80.0-100.0); MEAN CORPUSCULAR HEMOGLOBIN 31.8 PG (27.0-34.0); MEAN CORPUSCULAR HGB CONC 33.9 % (32.0-36.0); MONO % 10.2 % (0.0-8.0); NEUT % 71.3 % (16.0-70.0); PLATELET COUNT 225 TH/MM3 (150-450); RED CELL DISTRIBUTION WIDTH 13.3 % (11.6-17.2); WHITE BLOOD COUNT 7.6 TH/MM3 (4.0-11.0)
[2017-03-12] MEDS: SODIUM CHLORIDE 0.9% FLUSH 10 ML FLUSH IV FLUSH SCH ×2 (09:00→20:13)
[2017-03-12 09:07] LABS: APTT (PATIENT) 28.7 SEC (24.3-30.1)
[2017-03-12 10:09] LABS: BICARBONATE 26.2 MEQ/L (21.0-32.0); MAGNESIUM 2.1 MG/DL (1.5-2.5); POTASSIUM 3.9 MEQ/L (3.5-5.1)
[2017-03-12] MEDS: APIXABAN 5 MG TABLET PO SCH ×2 (10:16→20:13)
[2017-03-12] MEDS: METOPROLOL TARTRATE 25 MG TAB PO SCH ×2 (10:16→20:13)
[2017-03-12] MEDS: ASPIRIN 81 MG CHEW TAB PO SCH (10:16)
[2017-03-12 10:43] LABS: CKMB 1.7 NG/ML (0.5-3.6)
[2017-03-12 14:49] LABS: CSF CRYPTOCOCCUS AG CONF ND (NOT DETECTD)
[2017-03-12] MEDS: NS + KCL 20 MEQ INJ 1,000 ML IV SCH ×2 (15:15→20:13)
[2017-03-12] MEDS: cefTRIAXone INJ 1,000 MG in SODIUM CHLORIDE 0.9% INJ 100 ML IV SCH ×2 (15:16→20:13)
--- NOTE | 2017-03-12 16:00 | HHI.PR ---
Subjective Remarks Patient seen today around 1 PM. Says he is feeling all right. Denies any pain. Objective Vital Signs Date Time Temp Pulse Resp B/P Pulse Ox O2 Delivery O2 Flow Rate FiO2 03/12/17 12:00 98.8 73 18 145/79 95 03/12/17 10:28 78 03/12/17 08:00 99.0 81 18 157/79 93 03/12/17 07:45 78 03/12/17 01:18 79 03/11/17 20:30 98.1 78 18 147/76 94 03/11/17 16:00 77 03/11/17 16:00 99.3 77 16 128/77 97 I/O 03/11/17 03/11/17 03/11/17 03/12/17 03/12/17 03/12/17 07:00 15:00 23:00 07:00 15:00 23:00 Intake Total 812 ml 1054 ml 1008 ml 768 ml Output Total 2100 ml 2025 ml 1475 ml 350 ml Balance -1288 ml -971 ml -467 ml 418 ml Intake Oral 120 ml 450 ml 240 ml IV Total 692 ml 1054 ml 558 ml 528 ml Output Urine Total 2100 ml 2025 ml 1475 ml 350 ml # Bowel Movements 0 Result Diagram: 03/12/1780503/12/17805 Objective Remarks GENERAL: pt sitting up in bed, soft restraints on . disoriented as before. good mood. patient states again that it is 2007 SKIN: Warm and dry. HEAD: Normocephalic. EYES: No scleral icterus. No injection or drainage. NECK: Supple, trachea midline. No JVD. CARDIOVASCULAR: Tachycardic. Irregular rhythm. RESPIRATORY: Breath sounds equal bilaterally. No accessory muscle use. GASTROINTESTINAL: Abdomen soft, non-tender, nondistended. MUSCULOSKELETAL: No cyanosis, or edema. BACK: Nontender without obvious deformity. No CVA tenderness. A/P Assessment and Plan =========03/12/17 Vitals reviewed again and stable.. ID has stopped antivirals. Continues on ceftriaxone. Elevated protein on CSF. Follow-up culture and serology results. Creatine kinase improving. 480. 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 Appreciate neurology recommendations. EEG is abnormal. MRI brain atrophy and white matter disease as well and no acute infarct PT/OT/ST. -Continue on acyclovir as per infectious disease. -Status post LP. Follow-up cultures. Continue antimicrobials as per infectious disease // Questionable seizure: Abnormal EEG. Appreciate neurology recommendations. Continue Dilantin. // Atrial fibrillation with RVR: Appreciate cardiology recommendations. -Difficult to manage. Resistant to diltiazem, amiodarone. -s/p ablation as per cardiology. On eliquis. Appreciate assistance. //Elevated troponin: Possible non-ST elevation [place]. Appreciate cardiology recommendations. Not a candidate for cardiac catheterization at this time. Continue On heparin drip. //UTI: Urinalysis with 36 RBCs, 5 WBCs on admission. -Urine culture is negative. //Lactic acidosis: Resolved. //Sepsis: Patient has leukocytosis, lactic acidosis. Source of infection appears to be UTI. WBCs are trending down. Lactic acidosis has resolved. //Acute kidney injury: Resolved. Continue IV fluids. Monitor labs. //Rhabdomyolysis: CK improving. Continue IV fluids. //Urinary retention: continue with Luna catheter in place. // DVT prophylaxis: Continues on eliquis Discharge Planning pending ID and neurology clearance Sincere Cuellar MD Mar 12, 2017 16:00
[2017-03-12 19:52] LABS: VDRL CSF NON-REACTIVE (())
[2017-03-12] MEDS: ACETAMINOPHEN 325 MG TAB PO PRN (21:01)
[2017-03-12] MEDS: NYSTAT/DIPHENHY/LIDO MOUTHWASH (Adult) 120ML SWISH-SWAL SCH (21:02)
[2017-03-13] VITALS (7 sets, daily range): BP systolic 128–165; BP diastolic 69–87; PULSE 68–83; RESP 18–20; TEMP 97–99.1; O2SAT 94–97
[2017-03-13] MEDS: ACETAMINOPHEN 325 MG TAB PO PRN (03:53)
[2017-03-13] MEDS: PHENYTOIN SODIUM 100 MG CAP PO SCH ×3 (05:30→21:33)
[2017-03-13] MEDS: NS + KCL 20 MEQ INJ 1,000 ML IV SCH ×2 (05:31→16:46)
[2017-03-13 07:06] LABS: APTT (PATIENT) 28.2 SEC (24.3-30.1)
[2017-03-13] MEDS: NYSTAT/DIPHENHY/LIDO MOUTHWASH (Adult) 120ML SWISH-SWAL SCH ×4 (07:53→21:30)
[2017-03-13] MEDS: cefTRIAXone INJ 1,000 MG in SODIUM CHLORIDE 0.9% INJ 100 ML IV SCH ×2 (07:55→21:31)
[2017-03-13] MEDS: METOPROLOL TARTRATE 25 MG TAB PO SCH ×2 (07:56→21:33)
[2017-03-13] MEDS: ASPIRIN 81 MG CHEW TAB PO SCH (07:57)
[2017-03-13] MEDS: APIXABAN 5 MG TABLET PO SCH ×2 (07:57→21:32)
[2017-03-13] MEDS: SODIUM CHLORIDE 0.9% FLUSH 10 ML FLUSH IV FLUSH SCH ×2 (08:00→21:34)
[2017-03-13] MEDS ORDERED: MAGNESIUM HYDROXIDE SUSP 30 ML CUP PO ONE (17:00)
[2017-03-13] MEDS ORDERED: DOCUSATE SODIUM 50 MG/SENNA 8.6 MG TAB PO ONE (17:00)
--- NOTE | 2017-03-13 17:01 | HHI.PR ---
Subjective Remarks Patient seen today around 11 AM. Discussed with nursing. No acute changes. Patient denies any pain. Says he feels well. Objective Vital Signs Date Time Temp Pulse Resp B/P Pulse Ox O2 Delivery O2 Flow Rate FiO2 03/13/17 16:37 99.1 72 18 137/75 96 03/13/17 12:36 97.0 74 18 165/87 97 03/13/17 08:37 98.8 74 18 150/73 95 03/13/17 08:09 76 03/13/17 04:00 97.6 70 20 128/69 95 03/13/17 00:00 97.8 68 20 158/76 94 03/12/17 20:00 65 03/12/17 20:00 98.7 74 20 141/72 95 I/O 03/12/17 03/12/17 03/12/17 03/13/17 03/13/17 03/13/17 07:00 15:00 23:00 07:00 15:00 23:00 Intake Total 768 ml 480 ml 107 ml 1158 ml 480 ml Output Total 350 ml 250 ml 2000 ml 1400 ml 700 ml Balance 418 ml 230 ml -1893 ml -242 ml -220 ml Intake Oral 240 ml 480 ml 240 ml 480 ml IV Total 528 ml 107 ml 918 ml Output Urine Total 350 ml 250 ml 2000 ml 1400 ml 700 ml Result Diagram: 03/12/1780503/12/17 0806 Objective Remarks GENERAL: pt sitting up in bed. . Alert.. good mood. Oriented to place, person. Patient states again that it is 2007 SKIN: Warm and dry. HEAD: Normocephalic. EYES: No scleral icterus. No injection or drainage. NECK: Supple, trachea midline. No JVD. CARDIOVASCULAR: Tachycardic. Irregular rhythm. RESPIRATORY: Breath sounds equal bilaterally. No accessory muscle use. GASTROINTESTINAL: Abdomen soft, non-tender, nondistended. MUSCULOSKELETAL: No cyanosis, or edema. BACK: Nontender without obvious deformity. No CVA tenderness. A/P Assessment and Plan =========03/13/17 Vitals reviewed again and stable.. - Continues on ceftriaxone as per ID. Elevated protein on CSF. -Follow-up culture and serology results. Still pending -Recheck creatine kinase tomorrow. 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 Appreciate neurology recommendations. EEG is abnormal. MRI brain atrophy and white matter disease as well and no acute infarct PT/OT/ST. -Continue on acyclovir as per infectious disease. -Status post LP. Follow-up cultures. Continue antimicrobials as per infectious disease // Questionable seizure: Abnormal EEG. Appreciate neurology recommendations. Continue Dilantin. // Atrial fibrillation with RVR: Appreciate cardiology recommendations. -Difficult to manage. Resistant to diltiazem, amiodarone. -s/p ablation as per cardiology. On eliquis. Appreciate assistance. //Elevated troponin: Possible non-ST elevation [place]. Appreciate cardiology recommendations. Not a candidate for cardiac catheterization at this time. Continue On heparin drip. //UTI: Urinalysis with 36 RBCs, 5 WBCs on admission. -Urine culture is negative. //Lactic acidosis: Resolved. //Sepsis: Patient has leukocytosis, lactic acidosis. Source of infection appears to be UTI. WBCs are trending down. Lactic acidosis has resolved. //Acute kidney injury: Resolved. Continue IV fluids. Monitor labs. //Rhabdomyolysis: CK improving. Continue IV fluids. //Urinary retention: continue with Luna catheter in place. // DVT prophylaxis: Continues on eliquis Discharge Planning pending ID and neurology clearance Sincree Cuellar MD Mar 13, 2017 17:01
--- NOTE | 2017-03-13 19:00 | HHI.PR ---
Subjective Remarks F/u encephalopathy, sz, Flutter and CAD Objective Vitals Vital Signs Date Time Temp Pulse Resp B/P Pulse Ox O2 Delivery O2 Flow Rate FiO2 03/13/17 16:37 99.1 72 18 137/75 96 03/13/17 12:36 97.0 74 18 165/87 97 03/13/17 08:37 98.8 74 18 150/73 95 03/13/17 08:09 76 03/13/17 04:00 97.6 70 20 128/69 95 03/13/17 00:00 97.8 68 20 158/76 94 03/12/17 20:00 65 03/12/17 20:00 98.7 74 20 141/72 95 I/O 03/12/17 03/12/17 03/12/17 03/13/17 03/13/17 03/13/17 07:00 15:00 23:00 07:00 15:00 23:00 Intake Total 768 ml 480 ml 107 ml 1158 ml 480 ml Output Total 350 ml 250 ml 2000 ml 1400 ml 700 ml Balance 418 ml 230 ml -1893 ml -242 ml -220 ml Intake Oral 240 ml 480 ml 240 ml 480 ml IV Total 528 ml 107 ml 918 ml Output Urine Total 350 ml 250 ml 2000 ml 1400 ml 700 ml # Bowel Movements 1 Result Diagram: 03/12/17 0806 03/12/17 0806 Imaging Last Impressions Lumbar Puncture Fluoroscopy 03/09/17 0000 Signed Impressions: Service Date/Time: Thursday, March 09, 2017 13:50 - CONCLUSION: Uncomplicated fluoroscopically guided lumbar puncture with pressures as above. Hector Kent MD Brain MRI 03/08/17 0000 Signed Impressions: Service Date/Time: Wednesday, March 08, 2017 15:54 - CONCLUSION: 1. No acute abnormality seen. 2. Atrophy. 3. Suspected small vessel ischemic change in the white matter. Jason Sanders MD ADDENDUM: COMPARISON: MRI BRAIN W/ O CONTRAST, March 04, 2017, 13:32. On comparison with the current examination of 03/08/2017 to the prior study of 03/04/2017, there continues to be some mild increased signal in the left medial temporal lobe without significant change compared to the study of 03/04/2017. Otherwise, no other new or significant changes are demonstrated. These findings were discussed by telephone with the ordering physician. Juwan Kong MD Head Magnetic Resonance Angiography 03/04/17 0000 Signed Impressions: Service Date/Time: Saturday, March 04, 2017 13:32 - CONCLUSION: 1. Moderate focal stenosis of the left LEGAL EXECUTIVE origin and proximal left LEGAL EXECUTIVE. 2. Otherwise, unremarkable MRA examination. No evidence for aneurysm, vascular malformation, or large vessel occlusion. Brandon Gama MD Head CT 03/03/171928 Signed Impressions: Service Date/Time: February 19:37 - CONCLUSION: 1. Mild atrophy and patchy chronic small vessel ischemic change. 2. No acute hemorrhage or mass effect. Scott Thompson MD Chest X-Ray 03/03/171928 Signed Impressions: Service Date/Time: February 19:36 - CONCLUSION: No acute disease. Scott Thompson MD Carotid Artery Ultrasound 03/03/17 0000 Signed Impressions: Service Date/Time: February 22:48 - CONCLUSION: No evidence for hemodynamically significant stenosis. Rossana Pike MD Aorta CTA 03/03/17 0000 Signed Impressions: Service Date/Time: February 21:12 - CONCLUSION: 1. Atherosclerotic changes in the aorta with no aneurysm or dissection. 2. Coronary artery calcifications. 3. Status post median sternotomy for bypass grafting procedure. Scott Thompson MD Objective Remarks GENERAL: Alert. Oriented to place, person. Patient states again that it is 2007 SKIN: Warm and dry. HEAD: Normocephalic. EYES: No scleral icterus. No injection or drainage. NECK: Supple, trachea midline. No JVD. CARDIOVASCULAR: RESPIRATORY: Breath sounds equal bilaterally. No accessory muscle use. GASTROINTESTINAL: Abdomen soft, non-tender, nondistended. MUSCULOSKELETAL: No cyanosis, or edema. BACK: Nontender without obvious deformity. No CVA tenderness. 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 Appreciate neurology recommendations. EEG is abnormal. MRI brain atrophy and white matter disease as well and no acute infarct PT/OT/ST. - dc acyclovir as per infectious disease. - Status post LP. Follow-up cultures. // Questionable seizure: Abnormal EEG. Appreciate neurology recommendations. Continue Dilantin. // Atrial flutter with RVR: Appreciate cardiology recommendations. -Difficult to manage. Resistant to diltiazem, amiodarone. -s/p ablation as per cardiology. On eliquis. Appreciate assistance. //Elevated troponin: Possible non-ST elevation [place]. Appreciate cardiology recommendations. Not a candidate for cardiac catheterization at this time. Continue asa and BB. Start statin if not allergic and Ck level improved //Abnormal Urinalysis with 36 RBCs, 5 WBCs on admission. -Urine culture is negative. //Lactic acidosis: Resolved. //Acute kidney injury: Resolved. Discontinue IV fluids if tolerating po. Monitor labs. //Rhabdomyolysis: CK improving. Continue IV fluids. //Urinary retention: continue with Luna catheter in place. Trial Flomax // DVT prophylaxis: Continues on eliquis Discharge Planning SNF when arranged Jarek Nolasco MD Mar 13, 2017 19:00 Status: Acute (4) UTI (urinary tract infection) ICD Code: N39.0 Status: Acute (5) Acute kidney injury ICD Code: N17.9 Status: Acute (6) Hyperlipidemia ICD Code: E78.5 Status: Acute (7) Coronary artery disease ICD Code: I25.10 Status: Acute (8) Urinary retention ICD Code: R33.9 Status: Acute Jarek Nolasco MD Mar 13, 2017 19:00
[2017-03-14] VITALS: BP 132/70; PULSE 72; RESP 20; TEMP 98.4; O2SAT 94
[2017-03-14 06:10] VITALS: BP 130/70; PULSE 93; RESP 20; TEMP 98.9; O2SAT 94
[2017-03-14] MEDS: PHENYTOIN SODIUM 100 MG CAP PO SCH ×3 (06:16→22:10)
[2017-03-14 08:00] VITALS: BP_SYST 126; BP_SYST 138; BP_DIAS 62; BP_DIAS 65; PULSE 77; PULSE 83; RESP 19; TEMP 96.6; TEMP 98.1; O2SAT 94; O2SAT 96
[2017-03-14] MEDS: SODIUM CHLORIDE 0.9% FLUSH 10 ML FLUSH IV FLUSH SCH ×2 (09:29→21:00)
[2017-03-14] MEDS: ASPIRIN 81 MG CHEW TAB PO SCH (09:30)
[2017-03-14] MEDS: cefTRIAXone INJ 1,000 MG in SODIUM CHLORIDE 0.9% INJ 100 ML IV SCH (09:30)
[2017-03-14] MEDS: NS + KCL 20 MEQ INJ 1,000 ML IV SCH (09:30)
[2017-03-14] MEDS: APIXABAN 5 MG TABLET PO SCH ×2 (09:30→22:09)
[2017-03-14] MEDS: METOPROLOL TARTRATE 25 MG TAB PO SCH ×2 (09:32→22:10)
[2017-03-14] MEDS: NYSTAT/DIPHENHY/LIDO MOUTHWASH (Adult) 120ML SWISH-SWAL SCH ×4 (09:32→22:09)
--- NOTE | 2017-03-14 11:26 | HHI.PR ---
Addendum to Inpatient Note Addendum Reason: Additional Documentation Additional Information d/w : plan from ID standpoint. Will DC all antibiotics/antimicrobials. CSF EDWARD,Crypto, EBV, HSV negative. 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 Will sign off please call back if any change in clinical condition or plans. Cher Lucas MD Mar 14, 2017 11:25
[2017-03-14] MEDS ORDERED: ASPI81CH25 PO (12:16)
[2017-03-14] MEDS ORDERED: DILA100C PO (12:16)
[2017-03-14] MEDS ORDERED: MAGICADU2 SWISH-SWAL (12:16)
[2017-03-14] MEDS ORDERED: METO25TA3 PO (12:16)
[2017-03-14] MEDS ORDERED: APIX5TAB PO (12:16)
--- NOTE | 2017-03-14 12:17 | HHI.DCPOC ---
Discharge Care Plan Diagnosis: (1) Encephalopathy Your Health Problems Are: Difficulty with ADL Exercise Tolerance Goals to Promote Your Health * To prevent worsening of your condition and complications * To maintain your health at the optimal level Directions to Meet Your Goals Take your medications as prescribed Follow your dietary instruction Follow activity as directed Keep your appointments as scheduled Take your immunizations and boosters as scheduled If your symptoms worsen call your PCP, if no PCP go to Urgent Care Center or Emergency Room Smoking is Dangerous to Your Health. Avoid second hand smoke Call the 24-hour hour crisis hotline for domestic abuse at Jarek Nolasco MD Mar 14, 2017 12:17
[2017-03-14 12:23] LABS: AUTOMATED NEUTROPHIL # 9.3 TH/MM3 (1.8-7.7); BASOPHIL % 0.3 % (0.0-2.0); EOSINOPHIL # 0.1 TH/MM3 (0-0.4); EOSINOPHIL % 0.7 % (0.0-4.0); HEMO FLAGS DIFF FINAL; LYMPHOCYTE # 0.8 TH/MM3 (1.0-4.8); MEAN CELL VOLUME 95.3 FL (80.0-100.0); MEAN CORPUSCULAR HEMOGLOBIN 31.8 PG (27.0-34.0); MEAN CORPUSCULAR HGB CONC 33.4 % (32.0-36.0); MONO % 5.7 % (0.0-8.0); NEUT % 86.3 % (16.0-70.0); PLATELET COUNT 237 TH/MM3 (150-450); WHITE BLOOD COUNT 10.8 TH/MM3 (4.0-11.0)
--- NOTE | 2017-03-14 12:23 | HHI.PR ---
Subjective Remarks Follow-up encephalopathy and urinary retention. Patient alert and oriented 3. Denies headache or dizziness. Agrees with rehabilitation and statin. Seen with RN. Discussed with ID, discontinue all antimicrobials likely viral encephalitis. Awaiting return call from neurology. Objective Vitals Vital Signs Date Time Temp Pulse Resp B/P Pulse Ox O2 Delivery O2 Flow Rate FiO2 03/14/17 08:00 98.1 83 19 126/62 94 03/14/17 06:10 98.9 93 20 130/70 94 03/14/17 00:00 98.4 72 20 132/70 94 03/13/17 20:00 97.6 83 20 142/79 94 03/13/17 16:37 99.1 72 18 137/75 96 03/13/17 12:36 97.0 74 18 165/87 97 I/O 03/13/17 03/13/17 03/13/17 03/14/17 03/14/17 03/14/17 07:00 15:00 23:00 07:00 15:00 23:00 Intake Total 1158 ml 480 ml 1187 ml Output Total 1400 ml 700 ml 2200 ml 1000 ml Balance -242 ml -220 ml 1187 ml -2200 ml -1000 ml Intake Oral 240 ml 480 ml IV Total 918 ml 1187 ml Output Urine Total 1400 ml 700 ml 2200 ml 1000 ml # Voids 1 # Bowel Movements 1 1 Result Diagram: 03/12/17 0803/12/17 0806 Objective Remarks GENERAL: Alert. Oriented to place, person. SKIN: Warm and dry. HEAD: Normocephalic. EYES: No scleral icterus. No injection or drainage. NECK: Supple, trachea midline. No JVD. CARDIOVASCULAR: RESPIRATORY: Breath sounds equal bilaterally. No accessory muscle use. GASTROINTESTINAL: Abdomen soft, non-tender, nondistended. MUSCULOSKELETAL: No cyanosis, or edema. BACK: Nontender without obvious deformity. No CVA tenderness. 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 Appreciate neurology recommendations. EEG is abnormal. MRI brain atrophy and white matter disease as well and no acute infarct PT/OT/ST. - dc acyclovir and IV rocephin as per infectious disease. - Status post LP. Follow-up cultures NGTD. // Questionable seizure: Abnormal EEG. Appreciate neurology recommendations. Continue Dilantin. Patient advised not to drive for 6 months, carry young children, climb heights and swim alone // Atrial flutter with RVR: Appreciate cardiology recommendations. -Difficult to manage. Resistant to diltiazem, amiodarone. -s/p ablation as per cardiology. On eliquis. Appreciate assistance. //Elevated troponin: Possible non-ST elevation [place]. Appreciate cardiology recommendations. Not a candidate for cardiac catheterization at this time. Continue asa and BB. Start statin if Ck level improved //Abnormal Urinalysis with 36 RBCs, 5 WBCs on admission. -Urine culture is negative. //Lactic acidosis: Resolved. //Acute kidney injury: Resolved. Discontinue IV fluids if tolerating po. Monitor labs. //Rhabdomyolysis: CK improving status post IV fluids. //Urinary retention: Discontinue Luna catheter and consider Flomax // DVT prophylaxis: Continues on eliquis Discharge Planning SNF when arranged Jarek Nolasco MD Mar 14, 2017 12:23
--- NOTE | 2017-03-14 12:24 | HHI.DS ---
Discharge Summary Admission Date Mar 03, 2017 at 21:58 Discharge Date: Mar 16, 2017 Admitting Diagnosis 1-CVA 2-ELEVATED TROPONIN 3-SUSPECTED SEPSIS (UNKNOWN SOURCE) (1) Encephalopathy ICD Code: G93.40 Diagnosis: Principal (2) Elevated troponin I level ICD Code: R74.8 Diagnosis: Principal (3) Acute kidney injury ICD Code: N17.9 Diagnosis: Principal (4) Hyperlipidemia ICD Code: E78.5 Diagnosis: Principal (5) Coronary artery disease ICD Code: I25.10 Diagnosis: Principal (6) Urinary retention ICD Code: R33.9 Diagnosis: Principal Procedures LP cardioversion, EP with ablation and KAREN Brief History - From Admission Found by roommate - he was down on the ground for an undetermined amount of time. Roommate left at 9 a.m. for work and he was fine and at 6:30 p.m. she returned to find him down. Bowel and bladder incontinence had reportedly occurred. He had right hemiparesis upon arrival to ED per ED RN. Patient nods head when asked if he fell at home Denies chest pain/abdominal pain Having difficulty finding words/speech is dysarthric Bite on his tongue noted during exam . CBC/BMP: 03/12/17 0806 03/12/17 0806 Significant Findings Laboratory Tests Test 03/12/17 08:06 Red Blood Count 4.30 MIL/MM3 (4.50-5.90) Neutrophils (%) (Auto) 71.3 % (16.0-70.0) Monocytes (%) (Auto) 10.2 % (0.0-8.0) Total Creatine Kinase 480 U/L (39-308) Albumin 2.7 GM/DL (3.4-5.0) Imaging Last Impressions Lumbar Puncture Fluoroscopy 03/09/17 0000 Signed Impressions: Service Date/Time: Thursday, March 09, 2017 13:50 - CONCLUSION: Uncomplicated fluoroscopically guided lumbar puncture with pressures as above. Hector Kent MD Brain MRI 03/08/17 0000 Signed Impressions: Service Date/Time: Wednesday, March 08, 2017 15:54 - CONCLUSION: 1. No acute abnormality seen. 2. Atrophy. 3. Suspected small vessel ischemic change in the white matter. Jason Sanders MD ADDENDUM: COMPARISON: MRI BRAIN W/ O CONTRAST, March 04, 2017, 13:32. On comparison with the current examination of 03/08/2017 to the prior study of 03/04/2017, there continues to be some mild increased signal in the left medial temporal lobe without significant change compared to the study of 03/04/2017. Otherwise, no other new or significant changes are demonstrated. These findings were discussed by telephone with the ordering physician. Juwan Kong MD Head Magnetic Resonance Angiography 03/04/17 0000 Signed Impressions: Service Date/Time: Saturday, March 04, 2017 13:32 - CONCLUSION: 1. Moderate focal stenosis of the left BEESWAX BLEACHER origin and proximal left BEESWAX BLEACHER. 2. Otherwise, unremarkable MRA examination. No evidence for aneurysm, vascular malformation, or large vessel occlusion. Brandon Gama MD Head CT 03/03/171928 Signed Impressions: Service Date/Time: February 19:37 - CONCLUSION: 1. Mild atrophy and patchy chronic small vessel ischemic change. 2. No acute hemorrhage or mass effect. Scott Thompson MD Chest X-Ray 03/03/171928 Signed Impressions: Service Date/Time: February 19:36 - CONCLUSION: No acute disease. Scott Thompson MD Carotid Artery Ultrasound 03/03/17 0000 Signed Impressions: Service Date/Time: February 22:48 - CONCLUSION: No evidence for hemodynamically significant stenosis. Rossana Pike MD Aorta CTA 03/03/17 0000 Signed Impressions: Service Date/Time: February 21:12 - CONCLUSION: 1. Atherosclerotic changes in the aorta with no aneurysm or dissection. 2. Coronary artery calcifications. 3. Status post median sternotomy for bypass grafting procedure. Scott Thompson MD PE at Discharge GENERAL: Alert. Oriented to place, person and time. SKIN: Warm and dry. HEAD: Normocephalic. EYES: No scleral icterus. No injection or drainage. NECK: Supple, trachea midline. No JVD. CARDIOVASCULAR: RESPIRATORY: Breath sounds equal bilaterally. No accessory muscle use. GASTROINTESTINAL: Abdomen soft, non-tender, nondistended. MUSCULOSKELETAL: No cyanosis, or edema. Sl weak RUE and RLE. Gait steady. Joints non tender BACK: Nontender without obvious deformity. No CVA tenderness. Hospital Course This is a 81-year-old male who was found down by his roommate of unknown length of time also with dysarthria and confusion upon admission. Patient was also found to have rhabdomyolysis with acute renal failure. Patient was started empirically on acyclovir and ceftriaxone. Infectious disease was consulted. Neurology was consulted. EEG was abnormal, MRI of the brain showed atrophy and white matter disease but no acute infarct. Patient was started on Dilantin and levels were followed and have remained therapeutic. Patient also was found in atrial flutter with RVR, cardiology was consulted, diltiazem and amiodarone were restarted. Status post previous ablation, continue eliquis. A lumbar puncture was done, no pleocytosis, CSF cultures remained negative, cleared by infectious disease. Acyclovir and ceftriaxone discontinued, thought to be Viral encephalitis. Patient also had troponin elevation of 2.9. Per cardiology , not a candidate for cardiac catheterization. Patient will continue aspirin, beta gerardo and statin. On the day of discharge, patient's renal function has returned to normal, rhabdomyolysis has resolved. Patient ambulating independently without a walker, cleared by physical therapy, discharged home with home health care physical therapy. Pt Condition on Discharge: Stable Discharge Disposition: Disch w/ Home Health Serv Discharge Time: > 30 minutes Discharge Instructions DIET: Follow Instructions for: Heart Healthy Diet Activities you can perform: Regular-No Restrictions Activities to Avoid: Driving Follow up Referrals: Cardiology - 1 Week Neurology - 3 Weeks PCP Follow-up - 2-3 Days Physical Medicine & Rehab - 2 Months with Caryn Sanchez MD New Orders: COMP MET PROF (CMP) - 1 Week PHENYTOIN (DILANTIN) - 1 Week New Medications: Simvastatin (Zocor) 20 Mg Tab 20 MG PO DAILY If CK not elevated Cholesterol Management #30 Ref 0 TAB Apixaban (Eliquis) 5 Mg Tab 5 MG PO BID Prevent Blood Clot #60 TAB Aspirin (Aspirin Low Strength) 81 Mg Chew 81 MG PO DAILY Prevent Blood Clot #30 EA Metoprolol Tartrate (Metoprolol Tartrate) 25 Mg Tab 12.5 MG PO Q12HR Regulate Heart Beat #60 TAB Msxjiilr-Zwysnmhfbowjhpw-Leltivmuc Liq (Magic Mouthwash Adult Liq) 120 Ml Susp 5 ML SWISH-SWAL QID Infection #240 ML Phenytoin Extended (Dilantin) 100 Mg Cap 100 MG PO Q8HR Control Seizures #90 CAP Additional Information I spent 35 minutes [id number] with the patient or on the harmon discussing the patient's disposition, prognosis, and plan of care with patient's caregivers. Over half the time spent was devoted to counseling the patient regarding placement in coordinating care with caregivers and case management. Jarek Nolasco MD Mar 14, 2017 12:24 Maryana Salinas MD Mar 16, 2017 09:33 Simvastatin (Zocor) 20 Mg Tab 20 MG PO DAILY If CK not elevated Cholesterol Management #30 Ref 0 TAB Apixaban (Eliquis) 5 Mg Tab 5 MG PO BID Prevent Blood Clot #60 TAB Aspirin (Aspirin Low Strength) 81 Mg Chew 81 MG PO DAILY Prevent Blood Clot #30 EA Metoprolol Tartrate (Metoprolol Tartrate) 25 Mg Tab 12.5 MG PO Q12HR Regulate Heart Beat #60 TAB Ufiqzulk-Aexgtushfnggybe-Deizrnbgw Liq (Magic Mouthwash Adult Liq) 120 Ml Susp 5 ML SWISH-SWAL QID Infection #240 ML Phenytoin Extended (Dilantin) 100 Mg Cap 100 MG PO Q8HR Control Seizures #90 CAP Additional Information I spent 35 minutes [id number] with the patient or on the harmon discussing the patient's disposition, prognosis, and plan of care with patient's caregivers. Over half the time spent was devoted to counseling the patient regarding placement in coordinating care with caregivers and case management. Jarek Nolasco MD Mar 14, 2017 12:24 Maryana Salinas MD Mar 16, 2017 09:33
[2017-03-14 12:49] VITALS: BP 117/68; PULSE 78; RESP 18; TEMP 96.8; O2SAT 95
[2017-03-14 13:12] LABS: BICARBONATE 26.5 MEQ/L (21.0-32.0); POTASSIUM 3.8 MEQ/L (3.5-5.1)
[2017-03-14] MEDS ORDERED: ZOCO20TA PO (15:16)
[2017-03-14 17:05] VITALS: BP 139/78; PULSE 79; RESP 18; TEMP 97.1; O2SAT 92
[2017-03-14 19:54] LABS: CALIFORNIA ENCEPH AB IGG <1:4 (()); CALIFORNIA ENCEPH AB IGM <1:4 (()); EAST EQUINE ENCEPH AB IGG <1:4 (()); EAST EQUINE ENCEPH AB IGM <1:4 (()); ST LOUIS ENCEPH AB IGG <1:4 (()); ST LOUIS ENCEPH AB IGM <1:4 (())
[2017-03-14 21:27] VITALS: BP 123/69; PULSE 98; RESP 20; TEMP 98; O2SAT 100
[2017-03-14] MEDS: ATORVASTATIN 20 MG TAB PO SCH (22:12)
[2017-03-15] VITALS (8 sets, daily range): BP systolic 112–142; BP diastolic 67–80; PULSE 70–127; RESP 18–20; TEMP 96.1–99.2; O2SAT 94–97
[2017-03-15] MEDS: PHENYTOIN SODIUM 100 MG CAP PO SCH ×3 (05:44→21:30)
[2017-03-15] MEDS: ASPIRIN 81 MG CHEW TAB PO SCH (08:17)
[2017-03-15] MEDS: METOPROLOL TARTRATE 25 MG TAB PO SCH ×2 (08:18→21:30)
[2017-03-15] MEDS: SODIUM CHLORIDE 0.9% FLUSH 10 ML FLUSH IV FLUSH SCH ×2 (08:19→21:31)
[2017-03-15] MEDS: APIXABAN 5 MG TABLET PO SCH ×2 (08:19→21:30)
[2017-03-15] MEDS: NYSTAT/DIPHENHY/LIDO MOUTHWASH (Adult) 120ML SWISH-SWAL SCH ×4 (08:23→21:30)
--- NOTE | 2017-03-15 09:04 | HHI.PR ---
Subjective Remarks Follow-up encephalopathy. Discharge held yesterday secondary to pending SNF arrangements. Denies headache or dizziness. Discussed with RN and case management Objective Vitals Vital Signs Date Time Temp Pulse Resp B/P Pulse Ox O2 Delivery O2 Flow Rate FiO2 03/15/17 08:32 97.5 70 20 112/73 94 03/15/17 06:44 98.7 75 20 126/71 97 03/15/17 01:58 99.2 72 20 142/80 94 03/14/17 21:27 98.0 98 20 123/69 100 03/14/17 17:05 97.1 79 18 139/78 92 03/14/17 12:49 96.8 78 18 117/68 95 I/O 03/14/17 03/14/17 03/14/17 03/15/17 03/15/17 03/15/17 07:00 15:00 23:00 07:00 15:00 23:00 Output Total 2200 ml 1000 ml Balance -2200 ml -1000 ml Output Urine Total 2200 ml 1000 ml Bladder Scan Volume Amount 317 ml # Voids 1 1 # Bowel Movements 1 1 Result Diagram: 03/14/17 1110 03/14/17 1110 Imaging Last Impressions Lumbar Puncture Fluoroscopy 03/09/17 0000 Signed Impressions: Service Date/Time: Thursday, March 09, 2017 13:50 - CONCLUSION: Uncomplicated fluoroscopically guided lumbar puncture with pressures as above. Hector Kent MD Brain MRI 03/08/17 0000 Signed Impressions: Service Date/Time: Wednesday, March 08, 2017 15:54 - CONCLUSION: 1. No acute abnormality seen. 2. Atrophy. 3. Suspected small vessel ischemic change in the white matter. Jason Sanders MD ADDENDUM: COMPARISON: MRI BRAIN W/ O CONTRAST, March 04, 2017, 13:32. On comparison with the current examination of 03/08/2017 to the prior study of 03/04/2017, there continues to be some mild increased signal in the left medial temporal lobe without significant change compared to the study of 03/04/2017. Otherwise, no other new or significant changes are demonstrated. These findings were discussed by telephone with the ordering physician. Juwan Kong MD Head Magnetic Resonance Angiography 03/04/17 0000 Signed Impressions: Service Date/Time: Saturday, March 04, 2017 13:32 - CONCLUSION: 1. 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 2. Otherwise, unremarkable MRA examination. No evidence for aneurysm, vascular malformation, or large vessel occlusion. Brandon Gama MD Head CT [id number]/03/[id number] Signed Impressions: Service Date/Time: February 19:37 - CONCLUSION: 1. Mild atrophy and patchy chronic small vessel ischemic change. 2. No acute hemorrhage or mass effect. Scott Thompson MD Chest X-Ray [id number]/03/[id number] Signed Impressions: Service Date/Time: February 19:36 - CONCLUSION: No acute disease. Scott Thompson MD Carotid Artery Ultrasound 03/03/17 0000 Signed Impressions: Service Date/Time: February 22:48 - CONCLUSION: No evidence for hemodynamically significant stenosis. Rossana Pike MD Aorta CTA 03/03/17 0000 Signed Impressions: Service Date/Time: February 21:12 - CONCLUSION: 1. Atherosclerotic changes in the aorta with no aneurysm or dissection. 2. Coronary artery calcifications. 3. Status post median sternotomy for bypass grafting procedure. Scott Thompson MD Objective Remarks GENERAL: Alert. Oriented to place, person. SKIN: Warm and dry. HEAD: Normocephalic. EYES: No scleral icterus. No injection or drainage. NECK: Supple, trachea midline. No JVD. CARDIOVASCULAR: RESPIRATORY: Breath sounds equal bilaterally. No accessory muscle use. GASTROINTESTINAL: Abdomen soft, non-tender, nondistended. MUSCULOSKELETAL: No cyanosis, or edema. BACK: Nontender without obvious deformity. No CVA tenderness. Procedures LP cardioversion, EP with ablation and KAREN A/P Problem List: (1) Encephalopathy ICD Code: G93.40 Status: Acute (2) Elevated troponin I level ICD Code: R74.8 Status: Acute (3) Acute kidney injury ICD Code: N17.9 Status: Resolved (4) Hyperlipidemia ICD Code: E78.5 Status: Acute (5) Coronary artery disease ICD Code: I25.10 Status: Chronic (6) Urinary retention ICD Code: R33.9 Status: Acute Assessment and Plan //Encephalopathy. Resolved //Possible viral encephalitis - Patient has right hemiparesis and dysphasia. Appreciate neurology recommendations. EEG is abnormal. MRI brain atrophy and white matter disease as well and no acute infarct PT/OT/ST. - dc acyclovir and IV rocephin as per infectious disease. - Status post LP. Follow-up cultures NGTD. // Questionable seizure: Abnormal EEG. Appreciate neurology recommendations. Continue Dilantin currently with therapeutic level. Patient advised not to drive for 6 months, carry young children, climb heights and swim alone // Atrial flutter with RVR: Appreciate cardiology recommendations. -Difficult to manage. Resistant to diltiazem, amiodarone. -s/p ablation as per cardiology. On eliquis. Appreciate assistance. //Elevated troponin: Possible non-ST elevation [place]. Appreciate cardiology recommendations. Not a candidate for cardiac catheterization at this time. Continue asa and BB. Statin started last night //Abnormal Urinalysis with 36 RBCs, 5 WBCs on admission. -Urine culture is negative. //Lactic acidosis: Resolved. //Acute kidney injury: Resolved. Discontinue IV fluids if tolerating po. Monitor labs. //Rhabdomyolysis: CK improving status post IV fluids. //Urinary retention: Improved. Discontinue Luna catheter and consider Flomax // DVT prophylaxis: Continues on eliquis Discharge Planning SNF when arranged Jarek Nolasco MD Mar 15, 2017 09:04
--- NOTE | 2017-03-15 12:32 | HHI.FF ---
Face to Face Verification Diagnosis: (1) Encephalopathy (2) Atrial flutter Physical Therapy Order: Evaluate and Treat, Improve ambulation, Strength and gait training Home Health Nursing Order: Medical education Signs/symptoms of disease process Medication education-adverse effect Nursing assessment with vital signs I have seen patient Az Hackett on 03/15/17. My clinical findings support the need for the requested home health care services because: Deconditioned w/ increased weakness I certify that my clinical findings support that this patient is homebound because: Unsafe to leave home unassisted Need for psychosocial assistance Jarek Nolasco MD Mar 15, 2017 12:32
[2017-03-15] MEDS: ATORVASTATIN 20 MG TAB PO SCH (21:30)
[2017-03-16 01:00] VITALS: BP 123/68; PULSE 66; RESP 18; TEMP 97; O2SAT 97
[2017-03-16 04:00] VITALS: BP 122/70; PULSE 67; RESP 18; TEMP 96.5; O2SAT 93
[2017-03-16] MEDS: PHENYTOIN SODIUM 100 MG CAP PO SCH (05:23)
[2017-03-16 08:36] VITALS: BP 137/82; PULSE 73; RESP 20; TEMP 97.2; O2SAT 95
[2017-03-16] MEDS: APIXABAN 5 MG TABLET PO SCH (08:51)
[2017-03-16] MEDS: ASPIRIN 81 MG CHEW TAB PO SCH (08:51)
[2017-03-16] MEDS: METOPROLOL TARTRATE 25 MG TAB PO SCH (08:51)
[2017-03-16] MEDS: SODIUM CHLORIDE 0.9% FLUSH 10 ML FLUSH IV FLUSH SCH (08:54)
--- NOTE | 2017-03-16 09:45 | HHI.PR ---
Subjective Remarks f/u for encephalitis no deficits, no chest pain, SOB, headache, confusion. Seen ambulating around the [place] by himself, no walker, not wobbly, stable on his feet. Discussed with PT, clear for discharge with [facility] Objective Vitals Vital Signs Date Time Temp Pulse Resp B/P Pulse Ox O2 Delivery O2 Flow Rate FiO2 03/16/17 08:36 97.2 73 20 137/82 95 03/16/17 04:00 96.5 67 18 122/70 93 03/16/17 01:00 97.0 66 18 123/68 97 03/15/17 23:00 127 03/15/17 20:00 96.1 85 18 128/72 94 03/15/17 15:45 97.5 70 20 122/67 95 03/15/17 13:05 97.3 70 20 121/76 94 03/15/17 11:05 77 I/O 03/15/17 03/15/17 03/15/17 03/16/17 03/16/17 03/16/17 07:00 15:00 23:00 07:00 15:00 23:00 Intake Total 720 ml Balance 720 ml Intake Oral 720 ml # Voids 1 1 6 Result Diagram: 03/14/17 1110 03/14/17 1110 Objective Remarks GENERAL: Alert. Oriented to place, person. EYES: No scleral icterus. No injection or drainage. NECK: Supple, trachea midline. No JVD. CARDIOVASCULAR: RESPIRATORY: Breath sounds equal bilaterally. No accessory muscle use. GASTROINTESTINAL: Abdomen soft, non-tender, nondistended. MUSCULOSKELETAL: No cyanosis, or edema. BACK: Nontender without obvious deformity. No CVA tenderness. Procedures LP cardioversion, EP with ablation and KAREN A/P Problem List: (1) Encephalopathy ICD Code: G93.40 Status: Acute (2) Elevated troponin I level ICD Code: R74.8 Status: Acute (3) Acute kidney injury ICD Code: N17.9 Status: Resolved (4) Hyperlipidemia ICD Code: E78.5 Status: Acute (5) Coronary artery disease ICD Code: I25.10 Status: Chronic (6) Urinary retention ICD Code: R33.9 Status: Acute Assessment and Plan //Encephalopathy. Resolved //Possible viral encephalitis - Patient has right hemiparesis and dysphasia. Appreciate neurology recommendations. EEG is abnormal. MRI brain atrophy and white matter disease as well and no acute infarct PT/OT/ST. - dc acyclovir and IV rocephin as per infectious disease. - Status post LP, negative, no pleocytosis, cultures negative. AMbulating independently, d/c today with [facility] // Questionable seizure: Abnormal EEG. Appreciate neurology recommendations. Continue Dilantin currently with therapeutic level. Patient advised not to drive for 6 months, carry young children, climb heights and swim alone // Atrial flutter with RVR: Appreciate cardiology recommendations. -Difficult to manage. Resistant to diltiazem, amiodarone. -s/p ablation as per cardiology. On eliquis. Appreciate assistance. //Elevated troponin: Possible non-ST elevation [place]. Appreciate cardiology recommendations. Not a candidate for cardiac catheterization at this time. Continue asa and BB. Statin started //Abnormal Urinalysis with 36 RBCs, 5 WBCs on admission. -Urine culture is negative. //Lactic acidosis: Resolved. //Acute kidney injury: Resolved. //Rhabdomyolysis: CK improving , resolved with IVF. //Urinary retention: Improved. // DVT prophylaxis: Continues on eliquis Discharge Planning d/c today Maryana Salinas MD Mar 16, 2017 09:45
--- NOTE | 2017-03-16 10:49 | HHI.FF ---
Face to Face Verification Diagnosis: (1) Encephalopathy Speech Therapy Order: To Improve: Speech and communication skills, Cognitive skills I have seen patient Az Hackett on 03/16/17. My clinical findings support the need for the requested home health care services because: Deconditioned w/ increased weakness Med compliance is questionable I certify that my clinical findings support that this patient is homebound because: Unsafe to leave home unassisted Jarek Nolasco MD Mar 16, 2017 10:49
[2017-03-16 12:33] VITALS: BP 110/70; PULSE 77; RESP 20; TEMP 96; O2SAT 95
== END 2017-03-16 13:50 | disposition home health service (06) | DRG 981 ==
LOC: NEPC 19:21 → NEDA 21:58 → HIMN 23:20 → N05A 03-11 18:11
PROVIDERS: ADMIT Internal Medicine; ATTEND Internal Medicine
PROC: 0T9B70Z Drainage of Bladder with Drainage Device, Via Natural or Artificial Opening (ICD-10-PCS; 2017-03-05)
PROC: 5A2204Z Restoration of Cardiac Rhythm, Single (ICD-10-PCS; 2017-03-06)
PROC: 5A2204Z Restoration of Cardiac Rhythm, Single (ICD-10-PCS; 2017-03-06)
PROC: B246ZZ4 Ultrasonography of Right and Left Heart, Transesophageal (ICD-10-PCS; 2017-03-07)
PROC: 4A023FZ Measurement of Cardiac Rhythm, Percutaneous Approach (ICD-10-PCS; 2017-03-07)
PROC: 4A0234Z Measurement of Cardiac Electrical Activity, Percutaneous Approach (ICD-10-PCS; 2017-03-07)
PROC: 02K83ZZ Map Conduction Mechanism, Percutaneous Approach (ICD-10-PCS; 2017-03-07)
PROC: 02583ZZ Destruction of Conduction Mechanism, Percutaneous Approach (ICD-10-PCS; principal; 2017-03-07 14:45)
PROC: 009U3ZX Drainage of Spinal Canal, Percutaneous Approach, Diagnostic (ICD-10-PCS; 2017-03-09)
DX: A86 Unspecified viral encephalitis (principal); I21.4 Non-ST elevation (NSTEMI) myocardial infarction; N17.9 Acute kidney failure, unspecified; E87.2 Acidosis; I48.92 Unspecified atrial flutter; M62.82 Rhabdomyolysis; I48.91 Unspecified atrial fibrillation; R56.9 Unspecified convulsions; G81.91 Hemiplegia, unspecified affecting right dominant side; R47.01 Aphasia; I12.9 Hypertensive chronic kidney disease with stage 1 through stage 4 chronic kidney disease, or unspecified chronic kidney disease; N39.0 Urinary tract infection, site not specified; R32 Unspecified urinary incontinence; R15.9 Full incontinence of feces; R47.1 Dysarthria and anarthria; E78.5 Hyperlipidemia, unspecified; I25.10 Atherosclerotic heart disease of native coronary artery without angina pectoris; Z95.1 Presence of aortocoronary bypass graft; Z95.5 Presence of coronary angioplasty implant and graft; N40.0 Benign prostatic hyperplasia without lower urinary tract symptoms; N18.2 Chronic kidney disease, stage 2 (mild); I25.2 Old myocardial infarction; Z87.19 Personal history of other diseases of the digestive system; Z72.0 Tobacco use; R26.9 Unspecified abnormalities of gait and mobility; E78.00 Pure hypercholesterolemia, unspecified; Z78.1 Physical restraint status
CPT/HCPCS: 62270; 70450; 70544; 70551; 70553; 71010; 71275; 74174; 76937; 77003; 80048; 80053; 80061; 80069; 80074; 80185; 80307; 81001; 82140; 82550; 82552; 82945; 82948; 83036; 83605; 83735; 84100; 84157; 84443; 84484; 85025; 85610; 85730; 86140; 86403; 86592; 86651; 86652; 86653; 86654; 86695; 86696; 86703; 87040; 87070; 87086; 87102; 87205; 87206; 87529; 87641; 87798; 87799; 89051; 92960; 93005; 93306; 93312; 93320; 93325; 93613; 93623; 93653; 93880; 95819; 96361; 96374; A9579; C1730; C1732; C2630; J0133; J0282; J0696; J1160; J1165; J1644; J2250; J2370; J2405; J2720; J3010; J3480; J7030; J7050; J7060; Q9967